=== PATIENT | male | born 1980 | race Two or more races ===

== ENCOUNTER → 2020-06-19 08:39 | Outpatient (BNVA) | payer BC, SELFPAY | PROVIDERS: PCP Internal Medicine; Referring Provider Internal Medicine; Visit Provider Internal Medicine Endocrinology, Diabetes & Metabolism | DX: Z76.89 Persons encountering health services in other specified circumstances (principal) ==

== ENCOUNTER → 2020-08-14 08:54 | Outpatient (BNVA) | payer BC, SELFPAY | PROVIDERS: PCP Internal Medicine; Visit Provider Urology | DX: Z76.89 Persons encountering health services in other specified circumstances (principal) ==

== ENCOUNTER → 2020-09-14 08:35 | Outpatient (BNVA) | payer BC, SELFPAY | PROVIDERS: PCP Internal Medicine; Visit Provider Internal Medicine Endocrinology, Diabetes & Metabolism | DX: E10.9 Type 1 diabetes mellitus without complications (principal); E10.42 Type 1 diabetes mellitus with diabetic polyneuropathy; E10.319 Type 1 diabetes mellitus with unspecified diabetic retinopathy without macular edema; E04.2 Nontoxic multinodular goiter; E78.5 Hyperlipidemia, unspecified; E66.9 Obesity, unspecified; E55.9 Vitamin D deficiency, unspecified | CPT/HCPCS: 82947 ==

== ENCOUNTER 2020-09-14 09:27 | Outpatient (REF) | payer BC, SELFPAY ==
[2020-09-14 11:03] LABS: Estimated Average Glucose 160 mg/dL; Hemoglobin A1c % 7.2 %
[2020-09-14 11:08] LABS: Creatinine Urine 141.83 mg/dL; Microalbum/Creatinine Ratio Ur 9.8 ug/mg cr
[2020-09-14 11:09] LABS: Vitamin B12 387 pg/mL (200-900)
[2020-09-14 11:19] LABS: Alanine Aminotransferase 18 U/L (0-40); Albumin Level 4.4 g/dL (3.5-5.0); Alkaline Phosphatase 71 U/L (39-117); Anion Gap 11 (12-20); Aspartate Amino Transferase 16 U/L (5-37); Bilirubin Total 0.3 mg/dL (0.0-1.0); Blood Urea Nitrogen 9 mg/dL (9-16); Calcium 8.9 mg/dL (8.4-10.2); Carbon Dioxide 28 mmol/L (22-29); Chloride 107 mmol/L (96-108); Cholesterol 177 mg/dL; Estimated Glomerular Filt Rate > 60; Glucose Fasting 125 mg/dL (60-99); HDL Cholesterol 48 mg/dL; LDL Cholesterol Calculated 118 mg/dl; Potassium 4.3 mmol/L (3.3-5.1); Sodium 142 mmol/L (135-145); Total Protein 6.9 g/dL (6.5-8.0); Triglycerides 55 mg/dL
[2020-09-14 11:29] LABS: Free T4 (Free Thyroxine) 0.89 ng/dL (0.71-1.85); Thyroid Stimulating Hormone 1.29 uIU/mL (0.32-4.0); Vitamin D 25-OH Total 27.7 ng/mL (>30)
[2020-09-15 14:17] LABS: LDL Cholesterol Direct 122 mg/dL (<100)
== END 2020-09-14 09:28 | disposition home or self-care (01) ==
LOC: HO.10HDL 09:27
PROVIDERS: Visit Provider Internal Medicine Endocrinology, Diabetes & Metabolism
DX: E04.2 Nontoxic multinodular goiter (principal); E10.9 Type 1 diabetes mellitus without complications
CPT/HCPCS: 36415; 80053; 80061; 82043; 82306; 82607; 83036; 83721; 84439; 84443

== ENCOUNTER → 2020-12-14 07:12 | Outpatient (BNVA) | payer BC, SELFPAY | PROVIDERS: PCP Internal Medicine; Visit Provider Internal Medicine Endocrinology, Diabetes & Metabolism | DX: E10.9 Type 1 diabetes mellitus without complications (principal); E10.42 Type 1 diabetes mellitus with diabetic polyneuropathy; E10.319 Type 1 diabetes mellitus with unspecified diabetic retinopathy without macular edema; E04.2 Nontoxic multinodular goiter; E78.5 Hyperlipidemia, unspecified; E66.9 Obesity, unspecified; E55.9 Vitamin D deficiency, unspecified | CPT/HCPCS: 82947 ==

== ENCOUNTER 2020-12-14 08:02 | Outpatient (REF) | payer BC, SELFPAY ==
[2020-12-14 10:36] LABS: Cholesterol 114 mg/dL; HDL Cholesterol 39 mg/dL; LDL Cholesterol Calculated 65 mg/dl; Triglycerides 51 mg/dL
[2020-12-15 08:07] LABS: LDL Cholesterol Direct 61 mg/dL (<100)
== END 2020-12-14 08:03 | disposition home or self-care (01) ==
LOC: HO.10HDL 08:02
PROVIDERS: Visit Provider Internal Medicine Endocrinology, Diabetes & Metabolism
DX: E78.5 Hyperlipidemia, unspecified (principal)
CPT/HCPCS: 36415; 80061; 83721

== ENCOUNTER 2021-05-12 09:22 | Outpatient (REF) | payer BC, SELFPAY ==
--- NOTE | 2021-05-12 09:26 | EMG_ITS ---
This is a 41-year-old man with a 20-year history of insulin-dependent diabetes with insulin pump, comes in with right hand numbness, tingling and pain. PHYSICAL EXAMINATION: On examination, he is alert and oriented with normal intellectual functions. Cranial nerves II through XII are normal. Muscle tone and strength are normal in all 4 extremities. No Tinel or Phalen sign. IMPRESSION: Carpal tunnel syndrome. Rule out neuropathy. Nerve conduction EMG study: Mild to moderate carpal tunnel syndrome on the right. Mild sensory motor peripheral neuropathy. Normal EMG of the right C5-T1 innervated muscles. MD SU Carmen/YANIV / [phone]
== END 2021-05-12 09:23 | disposition home or self-care (01) ==
LOC: HO.NEURO 09:22
PROVIDERS: Visit Provider Internal Medicine
DX: R20.0 Anesthesia of skin (principal)
CPT/HCPCS: 95885; 95910

== ENCOUNTER 2021-08-19 09:28 | Outpatient (REF) | payer BC, SELFPAY | END 2021-08-19 09:29 | disposition home or self-care (01) | LOC: HO.LAB 09:28 | PROVIDERS: Visit Provider Internal Medicine | DX: Z20.822 Contact with and (suspected) exposure to COVID-19 (principal) | CPT/HCPCS: U0003; U0005 ==

== ENCOUNTER 2022-02-14 07:54 | Outpatient (REF) | payer BC, SELFPAY ==
[2022-02-14 11:00] LABS: Anion Gap 11 (12-20); Blood Urea Nitrogen 12 mg/dL (9-16); Calcium 9.2 mg/dL (8.4-10.2); Carbon Dioxide 25 mmol/L (22-29); Chloride 108 mmol/L (96-108); Cholesterol 201 mg/dL; Estimated Glomerular Filt Rate > 60; Glucose Random 151 mg/dL (60-115); HDL Cholesterol 45 mg/dL; LDL Cholesterol Calculated 140 mg/dl; Potassium 4.3 mmol/L (3.3-5.1); Sodium 140 mmol/L (135-145); Triglycerides 81 mg/dL
[2022-02-14 11:09] LABS: Free T4 (Free Thyroxine) 0.92 ng/dL (0.71-1.85)
[2022-02-14 13:07] LABS: Creatinine Urine 127.88 mg/dL; Microalbum/Creatinine Ratio Ur 19.5 ug/mg cr
== END 2022-02-14 07:55 | disposition home or self-care (01) ==
LOC: HO.10HDL 07:54
PROVIDERS: Visit Provider Internal Medicine Endocrinology, Diabetes & Metabolism
DX: E04.2 Nontoxic multinodular goiter (principal); E10.42 Type 1 diabetes mellitus with diabetic polyneuropathy
CPT/HCPCS: 36415; 80048; 80061; 82043; 84439; 84443

== ENCOUNTER → 2022-04-28 15:00 | Outpatient (BNVA) | payer BC, SELFPAY | PROVIDERS: PCP Internal Medicine; Visit Provider Internal Medicine Endocrinology, Diabetes & Metabolism | DX: E10.42 Type 1 diabetes mellitus with diabetic polyneuropathy (principal); E78.5 Hyperlipidemia, unspecified | CPT/HCPCS: 82947 ==

== ENCOUNTER 2022-07-21 07:42 | Outpatient (REF) | payer BC, SELFPAY ==
[2022-07-21 12:45] LABS: Creatinine Urine 104.94 mg/dL; Microalbum/Creatinine Ratio Ur 29.5 ug/mg cr
[2022-07-21 13:05] LABS: Alanine Aminotransferase 18 U/L (0-40); Albumin Level 4.2 g/dL (3.5-5.0); Alkaline Phosphatase 65 U/L (39-117); Anion Gap 11 (12-20); Aspartate Amino Transferase 22 U/L (5-37); Bilirubin Total 0.3 mg/dL (0.0-1.0); Blood Urea Nitrogen 17 mg/dL (9-16); Calcium 9.1 mg/dL (8.4-10.2); Carbon Dioxide 24 mmol/L (22-29); Chloride 110 mmol/L (96-108); Cholesterol 176 mg/dL; Estimated Glomerular Filt Rate > 60; Glucose Fasting 150 mg/dL (60-99); HDL Cholesterol 42 mg/dL; LDL Cholesterol Calculated 121 mg/dl; Potassium 4.4 mmol/L (3.3-5.1); Sodium 141 mmol/L (135-145); Thyroid Stimulating Hormone 1.07 uIU/mL (0.32-4.0); Total Protein 6.5 g/dL (6.5-8.0); Triglycerides 68 mg/dL; Vitamin D 25-OH Total 19.7 ng/mL (>30)
== END 2022-07-21 07:43 | disposition home or self-care (01) ==
LOC: HO.10HDL 07:42
PROVIDERS: Visit Provider Internal Medicine
DX: E78.5 Hyperlipidemia, unspecified (principal); E10.319 Type 1 diabetes mellitus with unspecified diabetic retinopathy without macular edema; E11.9 Type 2 diabetes mellitus without complications; E55.9 Vitamin D deficiency, unspecified; E04.2 Nontoxic multinodular goiter
CPT/HCPCS: 36415; 80053; 80061; 82043; 82306; 84443

== ENCOUNTER 2022-08-15 07:38 | Outpatient (REF) | payer BC, SELFPAY ==
[2022-08-15 11:07] LABS: Cholesterol 194 mg/dL; HDL Cholesterol 48 mg/dL; LDL Cholesterol Calculated 135 mg/dl; Triglycerides 55 mg/dL
== END 2022-08-15 07:39 | disposition home or self-care (01) ==
LOC: HO.10HDL 07:38
PROVIDERS: Visit Provider Internal Medicine Endocrinology, Diabetes & Metabolism
DX: E78.5 Hyperlipidemia, unspecified (principal)
CPT/HCPCS: 36415; 80061

== ENCOUNTER → 2022-08-18 14:47 | Outpatient (BNVA) | payer BC, SELFPAY | PROVIDERS: PCP Internal Medicine; Visit Provider Internal Medicine Endocrinology, Diabetes & Metabolism | DX: E10.42 Type 1 diabetes mellitus with diabetic polyneuropathy (principal); E78.5 Hyperlipidemia, unspecified | CPT/HCPCS: 82947 ==

== ENCOUNTER 2022-11-18 08:07 | Outpatient (REF) | payer BC, SELFPAY ==
[2022-11-18 11:51] LABS: Alanine Aminotransferase 21 U/L (0-40); Alkaline Phosphatase 67 U/L (39-117); Anion Gap 11 (12-20); Aspartate Amino Transferase 24 U/L (5-37); Bilirubin Total 0.4 mg/dL (0.0-1.0); Blood Urea Nitrogen 18 mg/dL (9-16); Calcium 8.8 mg/dL (8.4-10.2); Carbon Dioxide 25 mmol/L (22-29); Chloride 112 mmol/L (96-108); Cholesterol 178 mg/dL; Estimated Glomerular Filt Rate > 60; Glucose Fasting 112 mg/dL (60-99); HDL Cholesterol 39 mg/dL; LDL Cholesterol Calculated 128 mg/dl; Potassium 4.2 mmol/L (3.3-5.1); Sodium 144 mmol/L (135-145); Total Protein 6.1 g/dL (6.5-8.0); Triglycerides 58 mg/dL
[2022-11-18 11:54] LABS: Creatinine Urine 182.06 mg/dL; Microalbum/Creatinine Ratio Ur 14.2 ug/mg cr
== END 2022-11-18 08:08 | disposition home or self-care (01) ==
LOC: HO.10HDL 08:07
PROVIDERS: Visit Provider Internal Medicine
DX: E10.42 Type 1 diabetes mellitus with diabetic polyneuropathy (principal); E78.5 Hyperlipidemia, unspecified; E55.9 Vitamin D deficiency, unspecified
CPT/HCPCS: 36415; 80053; 80061; 82043; 82306

== ENCOUNTER 2023-08-24 07:55 | Outpatient (REF) | payer BC, SELFPAY ==
[2023-08-24 11:08] LABS: Alanine Aminotransferase 25 U/L (0-40); Albumin Level 4.1 g/dL (3.5-5.0); Alkaline Phosphatase 69 U/L (39-117); Anion Gap 11 (12-20); Aspartate Amino Transferase 23 U/L (5-37); Bilirubin Total 0.4 mg/dL (0.0-1.0); Blood Urea Nitrogen 21 mg/dL (9-16); Calcium 9.3 mg/dL (8.4-10.2); Carbon Dioxide 23 mmol/L (22-29); Chloride 112 mmol/L (96-108); Cholesterol 188 mg/dL (<200); Estimated Glomerular Filt Rate > 60; Glucose Fasting 79 mg/dL (60-99); HDL Cholesterol 53 mg/dL (>40); LDL Cholesterol Calculated 127 mg/dL (<100); Sodium 142 mmol/L (135-145); Total Protein 6.7 g/dL (6.5-8.0); Triglycerides 43 mg/dL (<150)
[2023-08-24 11:23] LABS: Vitamin D 25-OH Total 17.5 ng/mL (>30)
[2023-08-24 11:24] LABS: Microalbum/Creatinine Ratio Ur 10.7 ug/mg cr (<30)
== END 2023-08-24 07:56 | disposition home or self-care (01) ==
LOC: HO.10HDL 07:55
PROVIDERS: Visit Provider Internal Medicine
DX: E10.319 Type 1 diabetes mellitus with unspecified diabetic retinopathy without macular edema (principal); E55.9 Vitamin D deficiency, unspecified; E78.5 Hyperlipidemia, unspecified
CPT/HCPCS: 36415; 80053; 80061; 82043; 82306; 82570

== ENCOUNTER 2023-08-28 14:46 | Outpatient (AMB) | payer BC, SELFPAY ==
[2023-08-28 15:01] VITALS: BP 130/70; BMI 37.4
--- NOTE | 2023-08-28 15:01 | A.OFFPC_ITS ---
Vital Signs 08/28/23 15:01 Height 5 ft 9 in Weight 253 lb BMI 37.4 BP 130/70 Blood Pressure Location Lt brachial Position Sitting Intake Visit Reasons: dm Intake Note: Patient here for a follow up DM Tax Lawyer Required: No Accompanied by: Self / Same As Patient Allergies No Known Allergies [No Known Allergies*] Allergy (Verified 08/28/23 15:23) Medication List - Last Reconciled 08/28/23 by Elly Anne MD atorvastatin 80 mg PO BEDTIME 90 days blood-glucose sensor (Dexcom G6 Sensor device) As directed gabapentin Tablet in the morning, 1 tablet in the afternoon and 2 tablets at bedtime. PO .3 times a day; 30 days insulin lispro Up to 80 units via insulin pump subcut daily; 90 days Tobacco use date assessed: 08/28/23 Dental Screening Dental Screen Date: 08/28/23 Did you have a dental visit in the last 12 months?: No Did you have a dental problem in the last 6 months where you did not have access to dental care?: No Was dental information given to patient?: Patient has dentist HPI HPI Comments History of Present Illness Details This is a 43-year-old male with diabetes mellitus type while long-term current use of insulin complicated by polyneuropathy, severe major depression without psychotic features, dyslipidemia and vitamin-D deficiency that comes today for follow-up on his conditions. A1c within goal. Polyneuropathy has not significantly changed and he is on gabapentin for this matter. He declines any counseling or medication for his severe major depression and denies any suicidal thoughts. LDL not on goal but does not want me to add any medication. Vitamin- D supplements will be started. No chest pain or shortness of breath. 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 Mother No problems noted. Paternal Grandmother Diabetes Paternal Uncle Diabetes Family/Other Mental health disorder Social History Housing: House Alcohol intake: current Alcohol intake frequency: holidays/special occasions only Alcohol type: beer Patient Tobacco Use Status: Current everyday Tobacco user Tobacco use type: Cigarette Cigarettes Per Day: 6 e-Cigarette/Vaping Use: Never Used Second Hand Smoke Exposure: No service: No Current occupational status: employed Current occupational exposures/hazards: No Cognitive needs: No Hearing needs: No Vision needs: No Questionnaire PHQ-9 Over the last 2 weeks, how often have you been bothered by any of the following problems? 1. Little interest or pleasure in doing things: not at all 2. Feeling down, depressed, or hopeless: not at all 3. Trouble falling or staying asleep, or sleeping too much: more than half the days 4. Feeling tired or having little energy: several days 5. Poor appetite or overeating: not at all 6. Feeling bad about yourself - or that you are a failure or have let yourself or your family down: several days 7. Trouble concentrating on things, such as reading the newspaper or watching television: not at all 8. Moving or speaking so slowly that other people could have noticed. Or the opposite - being so fidgety or restless that you have been moving around a lot more than usual: not at all 9. Thoughts that you would be better off or of hurting yourself in some way: not at all Total score: 4 Depression Screening Interpretation: Positive Depression Screening Follow-up: Declines treatment Depression Screening Done: Yes 21120 - PHQ-9 Billing: Yes Source: Developed by Drs. Jace Padilla, Earlene Perez, Bogdan Luong and colleagues, with an educational lydia from [employer]. Thrive Questionnaire Date Thrive assessed: 08/28/23 I am a: Patient What is your living situation today?: I have a steady place to live Within the past 12 months, did the food you bought not last and you didn't have the money to get more?: Never true Within the past 12 months, did you worry whether your food would run out before you got money to buy more?: Never true Do you have trouble paying for medicines?: No Do you have trouble getting transportation to medical appointments?: No Do you have trouble paying your heating and electricity bill?: No Do you have trouble taking care of your child, family member or friend?: No Do you have trouble with day-to-day activities such as bathing, preparing meals, shopping, managing finances, etc.?: No Are you currently unemployed and looking for a job?: No Are you interested in more education?: No Please select the resources that you would like help with: None Currently or been in a relationship where the following occur: no concerns reported THRIVE Score: 0 AUDIT C Alcohol Use Questionnaire (AUDIT-C) 1. How often do you have a drink containing alcohol?: Monthly or less 2. How many drinks containing alcohol do you have on a typical day when you are drinking?: 1 or 2 3. How often do you have six or more drinks on one occasion?: Never Total Score: 1 Score Reviewed/Action Taken: No TEODORO-7 AMB Questionnaire TEODORO-7 Date TEODORO - 7 assessed: 11/23/22 Feeling nervous, anxious, or on edge: 1 = Several days Not being able to stop or control worryin = Not at all Worrying too much about different things: 1 = Several days Trouble relaxin = Not at all Being so restless that it is hard to sit still: 0 = Not at all Becoming easily annoyed or irritable: 1 = Several days Feeling afraid as if something awful might happen: 0 = Not at all Total TEODORO-7 score (0-4 normal; 5-9 mild; 10-14 moderate; 15-21 severe): 3 Source: Developed by Drs. Jace Padilla, Earlene Perez, Bogdan Luong and colleagues, with an educational lydia from [employer]. TEODORO-7 Assessment Billing TEODORO-7 Assessment Tool: TEODORO-7 Assessment 49849 Review of Systems Const All systems reviewed & are unremarkable except as noted in HPI and below Eyes Reports no additional complaints, Denies change in vision and Denies other visual disturbances Card Denies chest pain at rest, Denies chest pain with activity, Denies edema, Denies irregular heart rhythm, Denies claudication, Denies dyspnea, Denies dyspnea on exertion, Denies orthopnea, Denies paroxysmal nocturnal dyspnea and Denies slow heart rate Resp Denies cough, Denies dyspnea and Denies dyspnea on exertion GI Denies abdominal pain, Denies change in bowel habits, Denies excessive flatus, Denies nausea and Denies vomiting Denies urinary hesitancy, Denies urinary incontinence and Denies urinary urgency Musc Denies abnormal gait, Denies atrophy, Denies deformity and Denies limited range of motion Skin/Breast Denies bleeding lesions, Denies changing lesions and Denies rash Neuro Denies abnormal gait and Denies lack of coordination Physical exam (Primary Care) Vital Signs: Last Vital Signs BP 130/70 08/28/23 15:01 BMI result Body Mass Index 37.4 Tobacco/Smoking Status: Tobacco use Status Tobacco use date assessed 08/28/23 08/28/23 15:09 Patient Tobacco Use Status Current everyday Tobacco 08/28/23 15:03 Tobacco use type Cigarette 08/28/23 15:03 e-Cigarette/Vaping Use Never Used 08/28/23 15:03 PHQ-9: PHQ-9 Score PHQ-9: Total score 4 08/28/23 15:36 Depression Screening Interpretation: Positive Depression Screening Follow-up: Declines treatment Thrive Assessment: Date of Thrive Assessment Date Thrive assessed 08/28/23 08/28/23 15:03 Currently or been in a relationship where the following occur: no concerns reported Neck Neck: Yes normal visual inspection and Yes supple Resp Effort & Inspection: normal respiratory effort Auscultation: clear to auscultation bilaterally Cardio Jugular venous distension: no JVD Rate: regular rate Rhythm: regular rhythm Heart sounds: S1 normal heart sound present and S2 normal heart sound present Extrem General: Yes full ROM Office Procedures Flu Questionnaire Does the patient have a severe egg allergy?: No Results AMB Hemoglobin A1c AMB Hemoglobin A1c 6.6 % Last Edit by MARIA ALEJANDRA Gil on 08/28/23 15:0 9 Immunizations flu vacc [id number] 6mos up(PF) 60 mcg(15 mcgx4)/0.5 mL IM syringe Performing Provider: Elly Anne MD [facility] Documented (not given) by: MARIA ALEJANDRA Gil on 08/28/23 15:03 Reason Not Given: Patient Refused Results Reviewed Results Reviewed: Laboratory Last Values Hgb A1c (Clinic) 6.6 % (4.0-6.0) H 08/28/23 14:56 Assessment and Plan Assessment & Plan (1) Severe major depression without psychotic features: Code(s): F32.2 - Major depressive disorder, single episode, severe without psychotic features Plan: Declines treatment. In remission currently. (2) Diabetic polyneuropathy associated with type 1 diabetes mellitus: Code(s): E10.42 - Type 1 diabetes mellitus with diabetic polyneuropathy Plan: Continue insulin. Continue gabapentin. A1c goal is equal or less than 7%. (3) Dyslipidemia: Comment: Code(s): E78.5 - Hyperlipidemia, unspecified Plan: Continue statins. Advised low-cholesterol diet. LDL goal is less than 70. (4) Vitamin D deficiency: Code(s): E55.9 - Vitamin D deficiency, unspecified Plan: Continue vitamin-D supplements. Orders: Orders Influenza [id number] Immunization Today Z23 - Encounter for immunization Lipid Panel 6 Months E78.5 - Hyperlipidemia, unspecified Vitamin D 25-OH Total 6 Months E55.9 - Vitamin D deficiency, unspecified Comprehensive Lotus. Panel Fast 6 Months E10.9 - Type 1 diabetes mellitus without complications AMB Hemoglobin A1c Today E10.9 - Type 1 diabetes mellitus without complications Microalbumin, Random (w Creat) 6 Months E11.9 - Type 2 diabetes mellitus without complications Referrals Endocrinology Referral E10.9 - Type 1 diabetes mellitus without complications Medications: New cholecalciferol (vitamin D3) 50 mcg PO DAILY 90 caps 1RF 90 days Changed From blood-glucose sensor (Dexcom G6 Sensor device) As directed 3 ea 0RF E10.9 - Type 1 diabetes mellitus without complications To blood-glucose sensor (Dexcom G6 Sensor device) slim cartridge, infusion set, transmitter kit 3 ea 0RF E10.9 - Type 1 diabetes mellitus without complications Refilled gabapentin Tablet in the morning, 1 tablet in the afternoon and 2 tablets at bedtime. PO .3 times a day; 360 caps 6RF 30 days E10.42 - Type 1 diabetes mellitus with diabetic polyneuropathy Coding Level of Care Code Est Pt Level 4 (52436) Diagnoses Severe major depression without psychotic features F32.2 Diabetic polyneuropathy associated with type 1 diabetes mellitus E10.42 Dyslipidemia E78.5 Vitamin D deficiency E55.9 Additional Codes TEODORO-7 Assessment Billing - TEODORO-7 Assessment Tool: TEODORO-7 Assessment 89990 ([id number]) Time Spent (min) 24
== END 2023-08-28 15:34 | disposition home or self-care (01) ==
PROVIDERS: Visit Provider Internal Medicine
DX: E10.42 Type 1 diabetes mellitus with diabetic polyneuropathy (principal); E78.5 Hyperlipidemia, unspecified; E55.9 Vitamin D deficiency, unspecified; F32.2 Major depressive disorder, single episode, severe without psychotic features
CPT/HCPCS: 83036; 99214

== ENCOUNTER 2023-12-21 09:20 | Outpatient (AMB) | payer BC, SELFPAY ==
--- NOTE | 2023-12-21 09:22 | MHC.OFFVIS ---
Vital Signs 12/21/23 09:25 Height 5 ft 9 in Weight 258 lb 9.636 oz BMI 38.2 BP 138/78 Blood Pressure Location Lt brachial Position Sitting Pulse 58 Pulse Source Pulse Oximeter Intake Visit Reasons: DM1-confirmed Intake Note: Patient presents today to follow up on D1MT. Last Diabetic Eye exam: 08/2023 Last Podiatry Visit: 10/2023 Random Glucose: 161 mg/dl HgA1c: 7.0% Manager Labor Relations Required: No Accompanied by: Self / Same As Patient Allergies No Known Allergies [No Known Allergies*] Allergy (Verified 12/21/23 09:27) Medication List - Last Reconciled 12/21/23 by Jace Jc MD atorvastatin 80 mg PO BEDTIME 90 days blood-glucose sensor (Dexcom G6 Sensor device) slim cartridge, infusion set, transmitter kit cholecalciferol (vitamin D3) 50 mcg PO DAILY 90 days gabapentin Tablet in the morning, 1 tablet in the afternoon and 2 tablets at bedtime. PO .3 times a day; 30 days insulin lispro Up to 80 units via insulin pump subcut daily; 90 days HPI Comments Details: 42 yo male today for fup visit, for DM 1 He is feeling well. Patient is on basal IQ tandem with the dexcom G6. Pump and sensor download from 08/04/22-08/17/22 showed an average blood sugar of 144 mg/dL. The range is 40 to 280 mg per dL. He is 82 % in target range, 1% below target and only 17% above target. He was on basal IQ technology. He has % suspension is at nighttime. Average this patient 6 times per day. Average duration 12 minutes. Unfortunately, he has not using his pump at present time except to give him some bolus insulin. No experiencing any hypoglycemia He has DM type 1 diagnosed at age 23. He has Other PMH of hyperlipidemia, hypertension. 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 He has neuropathy , retinopathy. but no known nephropathy or macrovascular disease. Rare hypoglycemia Last ophthalmology evaluation l2-3 mos a go : he states he has stable retinopathy.Needs to see optho He has occasional nocturia, he denies polyuria, polydipsia, he has positive burning sensation and pain in his feet all the time, positive numbness and tingling, denies blurred vision. 05/15/19 Right Thyroid Lobe: 5.9 x 3.0 x 2.5 cm, volume 23.1 mL. Parenchyma: The gland echotexture is homogeneous. Thyroid vascularity is normal. Left Thyroid Lobe: 4.7 x 2.3 x 2.3 cm, volume 13.0 mL. Parenchyma: The gland echotexture is homogeneous. Thyroid vascularity is normal. Isthmus: 1.2 cm in maximum AP dimension. RIGHT THYROID LOBE: There is 1 nodule seen. 1. Location: Low/lateral. Size: 0.4 x 0.2 x 0.3 cm. Nodule characteristics: Hypoechoic and complex cystic, smooth margins, small calcification and no intranodular flow. Ultrasound appearance is suggestive of a colloid cyst. ISTHMUS: There is 1 nodule seen. 1. Location: Isthmus. Size: 0.6 x 0.3 x 0.6 cm. Nodule characteristics: Heterogeneous, smooth margins, no calcification and minimal peripheral flow. Question lobulated contour of the isthmus versus isoechoic nodule. This measures 1.1 x 1.4 cm in AP and transverse dimension. This is isoechoic, no calcification and demonstrates minimal flow. This is not well visualized sagittally for measurement. LEFT THYROID LOBE: There is 1 nodule seen. 1. Location: Mid. Size: 0.4 x 0.3 x 0.4 cm. Nodule characteristics: Hypoechoic and cystic, smooth margins, no calcification and no intranodular flow. NODES: No lymphadenopathy is seen in the tissue surrounding the thyroid gland. 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 Mother No problems noted. Paternal Grandmother Diabetes Paternal Uncle Diabetes Family/Other Mental health disorder Social History Housing: House Alcohol intake: current Alcohol intake frequency: holidays/special occasions only Alcohol type: beer Patient Tobacco Use Status: Current everyday Tobacco user Tobacco use type: Cigarette Cigarettes Per Day: 6 e-Cigarette/Vaping Use: Never Used Second Hand Smoke Exposure: No service: No Current occupational status: employed Current occupational exposures/hazards: No Cognitive needs: No Hearing needs: No Vision needs: No Physical Exam Vital Signs: Last Vital Signs Pulse 58 12/21/23 09:25 BP 138/78 12/21/23 09:25 BMI result Body Mass Index 38.2 Absence of Cushingoid features. Absence of acromegalic features. Neck exam reveals nl size thyroid about 15 gms. No thyroid nodules palpable. No carotid bruits present. Lungs CTA. Heart S1 S2, Reg R/R. No M/R/ G. Skin exam reveals absence of vitiligo or acanthosis nigricans. Abdominal exam reveals Soft NT/ND with NA BS. No organomegaly present. Extrem Other: Visual exam of foot performed. There is a 2nd and 5th digit amputation on the right foot and a 2nd digit amputation on the left. shallow ulcer on 2nd L toe or open lesions. No onchomycosis, no callouses.Pulses 2 + distally. Sensation intact to monofilament exam. Vibratory sensation sensed is decreased , with 128 Hz tuning fork Results AMB Hemoglobin A1c AMB Hemoglobin A1c 7.0 % Last Edit by MARIA ALEJANDRA Martin on 12/21/23 09:46 Assessment & Plan Assessment & Plan (1) Diabetes type 1, controlled: Code(s): E10.9 - Type 1 diabetes mellitus without complications Category: Medical Qualifiers: Diabetes mellitus complication status: with neurologic complications Diabetes mellitus complication detail: with polyneuropathy Qualified Code(s): E10.42 - Type 1 diabetes mellitus with diabetic polyneuropathy Plan: This is a 42-year-old male with a history of type 1 diabetes being treated with a tandem T-slim pump with Dexcom with excellent glycemic control and known microvascular complications namely neuropathy and retinopathy. Plan is to continue the current management. He was told to follow up with Podiatry regarding his left 2nd toe (2) Dyslipidemia: Comment: Code(s): E78.5 - Hyperlipidemia, unspecified Category: Medical Plan: Patient's is to start ezetimibe 10 mg along with atorvastatin and recheck lipid profile in 2 months Orders: Orders AMB Hemoglobin A1c Today E10.42 - Type 1 diabetes mellitus with diabetic polyneuropathy, Z13.9 - Encounter for screening, unspecified Referrals Diabetes Education Referral E10.42 - Type 1 diabetes mellitus with diabetic polyneuropathy Nutrition/Dietitian Referral E10.42 - Type 1 diabetes mellitus with diabetic polyneuropathy Medications: Refilled insulin lispro Up to 80 units via insulin pump subcut daily; 90 days 90 mL 3RF E10.9 - Type 1 diabetes mellitus without complications Coding Level of Care Code Est Pt Level 4 (56975) Diagnoses Controlled type 1 diabetes mellitus with diabetic polyneuropathy E10.42 Diabetes mellitus complication status: with neurologic complications Diabetes mellitus complication detail: with polyneuropathy Dyslipidemia E78.5
[2023-12-21 09:25] VITALS: BP 138/78; PULSE 58; BMI 38.2
[2023-12-21 10:00] LABS: Glucose, Whole Blood 161 mg/dL (60-115)
== END 2023-12-21 10:13 | disposition home or self-care (01) ==
PROVIDERS: PCP Internal Medicine; Visit Provider Internal Medicine Endocrinology, Diabetes & Metabolism
DX: Z13.9 Encounter for screening, unspecified (principal); E10.42 Type 1 diabetes mellitus with diabetic polyneuropathy; E78.5 Hyperlipidemia, unspecified
CPT/HCPCS: 99214

== ENCOUNTER → 2023-12-21 09:20 | Outpatient (BNVA) | payer BC, SELFPAY | PROVIDERS: PCP Internal Medicine; Visit Provider Internal Medicine Endocrinology, Diabetes & Metabolism | DX: E10.42 Type 1 diabetes mellitus with diabetic polyneuropathy (principal); E78.5 Hyperlipidemia, unspecified | CPT/HCPCS: 82947; 83036 ==

== ENCOUNTER 2024-01-04 08:47 | Outpatient (AMB) | payer BC, SELFPAY ==
--- NOTE | 2024-01-04 09:27 | MHC.AMDMED ---
Intake Intake Visit Reasons: DM1/CONFIRMED Assembler Tester Required: No Accompanied by: Self / Same As Patient Allergies No Known Allergies [No Known Allergies*] Allergy (Verified 12/21/23 09:27) HPI Comprehensive Diabetes Asmnt Most Recent Diabetes Results: Microalb/Creat Ratio 10.7 ug/mg cr (<30) 08/24/23 Cholesterol 188 mg/dL (<200) 08/24/23 HDL Cholesterol 53 mg/dL (>40) 08/24/23 Triglycerides 43 mg/dL (<150) 08/24/23 Creatinine 0.83 mg/dL (0.5-1.4) 08/24/23 Blood Urea Nitrogen 21 mg/dL (9-16) H 08/24/23 Sodium 142 mmol/L (135-145) 08/24/23 Potassium 4.0 mmol/L (3.3-5.1) 08/24/23 Chloride 112 mmol/L (96-108) H 08/24/23 Carbon Dioxide 23 mmol/L (22-29) 08/24/23 Calcium 9.3 mg/dL (8.4-10.2) 08/24/23 AST 23 U/L (5-37) 08/24/23 ALT 25 U/L (0-40) 08/24/23 Total Protein 6.7 g/dL (6.5-8.0) 08/24/23 Albumin 4.1 g/dL (3.5-5.0) 08/24/23 [facility] Medical History Severe major depression without psychotic features Hand numbness Vitamin D deficiency Obesity (BMI 30-39.9) Dyslipidemia Non-toxic multinodular goiter Diabetic retinopathy associated with type 1 diabetes mellitus Diabetic polyneuropathy associated with type 1 diabetes mellitus Diabetes type 1, controlled Surgical History S/P foot surgery, right 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 Mother No problems noted. Paternal Grandmother Diabetes Paternal Uncle Diabetes Family/Other Mental health disorder Social History (Reviewed 12/21/23 @ 09:34 by ANNA Martin Housing: House Alcohol intake: current Alcohol intake frequency: holidays/special occasions only Alcohol type: beer Patient Tobacco Use Status: Current everyday Tobacco user Tobacco use type: Cigarette Cigarettes Per Day: 6 e-Cigarette/Vaping Use: Never Used Second Hand Smoke Exposure: No service: No Current occupational status: employed Current occupational exposures/hazards: No Cognitive needs: No Hearing needs: No Vision needs: No Assessment & Plan Assessment & Plan (1) Diabetes type 1, controlled: Code(s): E10.9 - Type 1 diabetes mellitus without complications Qualifiers: Diabetes mellitus complication status: with neurologic complications Diabetes mellitus complication detail: with polyneuropathy Qualified Code(s): E10.42 - Type 1 diabetes mellitus with diabetic polyneuropathy Plan: Patient presents for pump training for T-Slim pump with Basal IQ and CGM training today. The following topics were reviewed today: Patient is currently off pump due to not being able to receive insulin pump supplies, or sensors Patient reports he is testing blood sugar with glucose meter but did not bring to today's visit Reports he has been using Humalog before meals with syringe and vial, patient does not have active prescription for basal insulin. Message sent to Dr. Jc to send prescription for Lantus 30 units daily, until patient can resume insulin pump therapy. Explained to patient with type 1 diabetes important to have both mealtime insulin and long-acting insulin in order to have 24 hour insulin coverage. Patient stated he understands and will start Lantus 30 units Sent message to [facility] to find out if patient is eligible for new T slim with control IQ, or if we need to update through the computer. Also instructed patient to call [facility] to make sure they are sending him his insulin pump supplies Troubleshooting after starting new pod or inserting new insulin set: Occlusion, adhesive tape sensitivity, redness Check BG 2 hours after site change Safety information: Importance of a backup plan, for manual injections, proper prescriptions and emergency supplies ketone strips, and rules for testing for ketones Patient understands the basic concepts of pump therapy, how to give insulin for meals and snacks, how to troubleshoot for hyper and hypoglycemia. Patient will follow-up with hematology nurse educator in 6 weeks Portions of this note were created using voice recognition software, please excuse any words or phrases that may have been misinterpreted. Coding Level of Care Code Est Pt Level 1 (61018) Diagnoses Controlled type 1 diabetes mellitus with diabetic polyneuropathy E10.42 Diabetes mellitus complication status: with neurologic complications Diabetes mellitus complication detail: with polyneuropathy
== END 2024-01-04 09:29 | disposition home or self-care (01) ==
PROVIDERS: PCP Internal Medicine; Visit Provider Registered Nurse Diabetes Educator
DX: E10.42 Type 1 diabetes mellitus with diabetic polyneuropathy (principal)

== ENCOUNTER → 2024-01-04 08:47 | Outpatient (BNVA) | payer BC, SELFPAY | PROVIDERS: PCP Internal Medicine; Visit Provider Registered Nurse Diabetes Educator | DX: Z46.81 Encounter for fitting and adjustment of insulin pump (principal); E10.42 Type 1 diabetes mellitus with diabetic polyneuropathy | CPT/HCPCS: 99211 ==

== ENCOUNTER 2024-01-16 15:29 | Emergency (ER) | payer BC, SELFPAY ==
--- NOTE | ~2024-01-16 | XR_ITS ---
EXAMINATION: XR FINGER, LEFT CLINICAL INFORMATION: Pain. Question of osteomyelitis COMPARISON: None available. TECHNIQUE: 3 views of the left first digit. FINDINGS: No radiopaque foreign body, fracture, dislocation, or destructive process. XR/XR finger LT min 2V IMPRESSION: Negative study.
--- NOTE | 2024-01-16 15:36 | ED_ITS ---
HPI - Extremity Injury (Upper) General Chief Complaint: Extremity Injury, Upper Stated Complaint: thumb swollen and painful left Related Data Previous Rx's ?Medication ?Instructions ?Recorded atorvastatin 80 mg tablet 80 mg PO BEDTIME 90 days #90 tabs 07/25/22 blood-glucose sensor (Dexcom G6 #3 ea 08/28/23 Sensor device) cholecalciferol (vitamin D3) 50 50 mcg PO DAILY 90 days #90 caps 08/28/23 mcg (2,000 unit) capsule gabapentin 300 mg capsule See Rx Instructions PO .3 times a 08/28/23 day 30 days #360 caps insulin lispro 100 unit/mL See Rx Instructions subcut DAILY 12/21/23 subcutaneous solution 90 days #90 mL insulin glargine 100 unit/mL (3 30 unit (0.3 mL) subcut BID #15 mL 01/04/24 mL) subcutaneous pen (Lantus Solostar U-100 Insulin) Allergies Allergy/AdvReac Type Severity Reaction Status Date / Time No Known Allergies Allergy Verified 01/16/24 15:39 [No Known Allergies*] [facility] Past Medical History Medical History Severe major depression without psychotic features Hand numbness Vitamin D deficiency Obesity (BMI 30-39.9) Dyslipidemia Non-toxic multinodular goiter Diabetic retinopathy associated with type 1 diabetes mellitus Diabetic polyneuropathy associated with type 1 diabetes mellitus Diabetes type 1, controlled Surgical History S/P foot surgery, right 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 Mother No problems noted. Paternal Grandmother Diabetes Paternal Uncle Diabetes Family/Other Mental health disorder Social History Social History Housing: House Alcohol intake: current Alcohol intake frequency: holidays/special occasions only Alcohol type: beer Patient Tobacco Use Status: Current everyday Tobacco user Tobacco use type: Cigarette Cigarettes Per Day: 6 e-Cigarette/Vaping Use: Never Used Second Hand Smoke Exposure: No service: No Current occupational status: employed Current occupational exposures/hazards: No Cognitive needs: No Hearing needs: No Vision needs: No Physical Exam 2 Vital Signs: Vital Signs: Last Vital Signs Temp 98.5 F 01/16/24 19:40 Pulse 60 01/16/24 19:40 Resp 20 01/16/24 19:40 BP 144/91 H 01/16/24 19:40 Pulse Ox 99 01/16/24 19:40 O2 Del Method Room Air 01/16/24 19:40 BMI result Body Mass Index 36.8 Course Course Course Narrative: This is a Rapid Medical Examination (RME) performed by Joe Yee PA-C in triage. Full HPI, ROS, assessment and treatment plan per primary provider in the Main ED. 43 yo male hx T1DM here for eval of left thumb infection x2 weeks. reports increased swelling/ pain to left thumb. denies injury/ trauma. no hx gout. I received expect from [facility] to r/o osteo. on exam, swelling/ warmth noted to distal left thumb. no overlying skin changes. no deformity. limited ROM to DIP of left thumb d/t pain/ swelling. ttp. Plan: labs, xr Reevaluation(s) Reevaluation #1: Patient left the ED without completing treatment Medical Decision Making Lab Data 01/16/24 15:52 01/16/24 15:52 Labs: Lab Results 01/16/24 Range/Units 15:52 WBC 7.8 (4.8-10.8) X10*3/uL RBC 4.75 (4.60-5.80) X10*6/uL Hgb 13.4 L (14.0-18.0) g/dl Hct 40.7 L (42.0-52.0) % MCV 85.7 (80.0-98.0) fL MCH 28.2 (27.0-33.0) pg MCHC 32.9 (31.0-36.0) g/dl RDW 13.4 (11.0-16.0) % Plt Count 235 (160-400) X10*3/uL MPV 9.1 L (9.4-12.4) fL Immature Gran % (Auto) 0.3 (0.0-0.4) % Neut % (Auto) 71.5 (45-73) % Lymph % (Auto) 21.0 (20-40) % Dewitt % (Auto) 6.0 (2-11) % Eos % (Auto) 0.8 (0-4) % Baso % (Auto) 0.4 (0-2) % Lymph # (Auto) 1.6 (1.2-4.9) X10*3/uL Dewitt # (Auto) 0.5 (0.1-1.2) X10*3/uL Eos # (Auto) 0.1 (0.0-0.4) X10*3/uL Baso # (Auto) 0.0 (0.0-0.2) X10*3/uL Abs Immat Gran (auto) 0.02 (0.00-0.03) X10*3/uL Absolute Neuts (auto) 5.6 (2.0-8.3) x10*3/uL Absolute Nucleated RBC 0.000 (0.0-0.012) X10*3/uL Nucleated RBC % (auto) 0.0 (0.0-0.2) /100WBC Sodium 143 (135-145) mmol/L Potassium 4.0 (3.3-5.1) mmol/L Chloride 112 H (96-108) mmol/L Carbon Dioxide 25 (22-29) mmol/L Anion Gap 10 L (12-20) BUN 26 H (9-16) mg/dL Creatinine 0.95 (0.5-1.4) mg/dL Estim Creat Clear Calc 128.1 Estimated GFR > 60 Random Glucose 83 (60-115) mg/dL Uric Acid 5.9 (3.4-7.0) mg/dL Calcium 9.1 (8.4-10.2) mg/dL Magnesium 2.1 (1.6-2.6) mg/dL Total Bilirubin 0.3 (0.0-1.0) mg/dL AST 22 (5-37) U/L ALT 16 (0-40) U/L Alkaline Phosphatase 71 (39-117) U/L Total Protein 6.8 (6.5-8.0) g/dL Albumin 4.0 (3.5-5.0) g/dL Discharge Plan Discharge Clinical Impression: Pain of left thumb Patient Disposition: Left W/O Completing Treatment Prescriptions: No Action insulin glargine [Lantus Solostar U-100 Insulin] 100 unit/mL (3 mL) insulin pen 30 unit subcut BID Qty: 15 5RF atorvastatin 80 mg tablet 80 mg PO BEDTIME 90 Days Qty: 90 2RF gabapentin 300 mg capsule See Rx Instructions PO .3 times a day 30 Days Qty: 360 6RF Rx Instructions: Tablet in the morning, 1 tablet in the afternoon and 2 tablets at bedtime. PO .3 times a day; cholecalciferol (vitamin D3) 50 mcg (2,000 unit) capsule 50 mcg PO DAILY 90 Days Qty: 90 1RF (DME) DexBiotix G6 Sensor Device See Rx Instructions .Route Qty: 3 0RF Rx Instructions: slim cartridge, infusion set, transmitter kit insulin lispro 100 unit/mL solution See Rx Instructions subcut DAILY 90 Days Qty: 90 3RF Rx Instructions: Up to 80 units via insulin pump subcut daily; Discharge Date/Time: 01/16/24 22:12
[2024-01-16 15:37] VITALS: BP 146/50; PULSE 64; RESP 18; TEMP 36.6; O2SAT 99; BMI 36.8
[2024-01-16 15:55] LABS: MANUAL DIFF FLAG NO
[2024-01-16 15:58] LABS: Basophils Percent Auto 0.4 % (0-2); Eosinophils Absolute Auto 0.1 X10*3/uL (0.0-0.4); Eosinophils Percent Auto 0.8 % (0-4); Hematocrit 40.7 % (42.0-52.0); Hemoglobin 13.4 g/dl (14.0-18.0); Imm Gran Abs Auto 0.02 X10*3/uL (0.00-0.03); Imm Gran Pct Auto 0.3 % (0.0-0.4); Lymphocytes Absolute Auto 1.6 X10*3/uL (1.2-4.9); Mean Corpuscular HGB Conc 32.9 g/dl (31.0-36.0); Mean Corpuscular Hemoglobin 28.2 pg (27.0-33.0); Mean Corpuscular Volume 85.7 fL (80.0-98.0); Mean Platelet Volume 9.1 fL (9.4-12.4); Monocytes Absolute Auto 0.5 X10*3/uL (0.1-1.2); Neutrophils Absolute Auto 5.6 x10*3/uL (2.0-8.3); Neutrophils Percent Auto 71.5 % (45-73); Platelet Count 235 X10*3/uL (160-400); Red Blood Count 4.75 X10*6/uL (4.60-5.80); Red Cell Distribution Width 13.4 % (11.0-16.0); White Blood Count 7.8 X10*3/uL (4.8-10.8)
[2024-01-16 16:18] LABS: Alanine Aminotransferase 16 U/L (0-40); Alkaline Phosphatase 71 U/L (39-117); Anion Gap 10 (12-20); Aspartate Amino Transferase 22 U/L (5-37); Bilirubin Total 0.3 mg/dL (0.0-1.0); Blood Urea Nitrogen 26 mg/dL (9-16); Calcium 9.1 mg/dL (8.4-10.2); Carbon Dioxide 25 mmol/L (22-29); Chloride 112 mmol/L (96-108); Creatinine Clr Calc Pharmacy 128.1; Estimated Glomerular Filt Rate > 60; Glucose Random 83 mg/dL (60-115); Magnesium 2.1 mg/dL (1.6-2.6); Sodium 143 mmol/L (135-145); Total Protein 6.8 g/dL (6.5-8.0); Uric Acid 5.9 mg/dL (3.4-7.0)
--- OUTSIDE RECORDS SUMMARY | 2024-01-16 19:39 | XMS_ITS | Patient Health Record ---
Author Organization [facility] Address [address] [place], [place] [id number] Support Name Relationship Address Phone Larry Marion Emergency Contact [address] [place], [place] [id number] Larry Pandey Guarantor Unknown Unavaila ble REASON FOR REFERRAL No Information SOCIAL HISTORY Sex Assigned At : Social History Observation Description Sex Assigned At Unknown PLAN OF TREATMENT No Information Insurance Providers Payer Name Payer Address Payer Phone Subscriber Number Group Number Insured Name Patient Relationship to Insured Coverage Start Date Coverage End Date [place] Medicare Part [place] [employer] [address] [place] [address] [id number] Larry Pandey Self - patient is the insured
[2024-01-16 19:40] VITALS: BP 144/91; PULSE 60; RESP 20; TEMP 36.9; O2SAT 99
--- NOTE | 2024-01-16 22:11 | PC.NURSE ---
Pt left out of department, ambulatory in no acute distress.
== END 2024-01-16 22:12 | disposition left against medical advice (07) ==
PROVIDERS: Physician Assistant Medical; Emergency Provider Emergency Medicine; PCP Internal Medicine
DX: M79.645 Pain in left finger(s) (principal); Z79.899 Other long term (current) drug therapy
CPT/HCPCS: 36415; 73140; 80053; 83735; 84550; 85025; 99283

== ENCOUNTER 2024-01-22 09:09 | Outpatient (AMB) | payer BC, SELFPAY ==
--- NOTE | 2024-01-22 09:26 | MHC.AMDMED ---
Intake Intake Visit Reasons: T1DM/CONFIRMED Plastic And Reconstructive Surgeon Required: No Accompanied by: Self / Same As Patient Allergies No Known Allergies [No Known Allergies*] Allergy (Verified 01/16/24 15:39) HPI Comprehensive Diabetes Asmnt Most Recent Diabetes Results: Microalb/Creat Ratio 10.7 ug/mg cr (<30) 08/24/23 Cholesterol 188 mg/dL (<200) 08/24/23 HDL Cholesterol 53 mg/dL (>40) 08/24/23 Triglycerides 43 mg/dL (<150) 08/24/23 Creatinine 0.95 mg/dL (0.5-1.4) 01/16/24 Blood Urea Nitrogen 26 mg/dL (9-16) H 01/16/24 Sodium 143 mmol/L (135-145) 01/16/24 Potassium 4.0 mmol/L (3.3-5.1) 01/16/24 Chloride 112 mmol/L (96-108) H 01/16/24 Carbon Dioxide 25 mmol/L (22-29) 01/16/24 Calcium 9.1 mg/dL (8.4-10.2) 01/16/24 AST 22 U/L (5-37) 01/16/24 ALT 16 U/L (0-40) 01/16/24 Total Protein 6.8 g/dL (6.5-8.0) 01/16/24 Albumin 4.0 g/dL (3.5-5.0) 01/16/24 [facility] Medical History Severe major depression without psychotic features Hand numbness Vitamin D deficiency Obesity (BMI 30-39.9) Dyslipidemia Non-toxic multinodular goiter Diabetic retinopathy associated with type 1 diabetes mellitus Diabetic polyneuropathy associated with type 1 diabetes mellitus Diabetes type 1, controlled Surgical History S/P foot surgery, right 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 Mother No problems noted. Paternal Grandmother Diabetes Paternal Uncle Diabetes Family/Other Mental health disorder Social History (Reviewed 12/21/23 @ 09:34 by ANNA Martin Housing: House Alcohol intake: current Alcohol intake frequency: holidays/special occasions only Alcohol type: beer Patient Tobacco Use Status: Current everyday Tobacco user Tobacco use type: Cigarette Cigarettes Per Day: 6 e-Cigarette/Vaping Use: Never Used Second Hand Smoke Exposure: No service: No Current occupational status: employed Current occupational exposures/hazards: No Cognitive needs: No Hearing needs: No Vision needs: No Assessment & Plan Assessment & Plan (1) Diabetes type 1, controlled: Code(s): E10.9 - Type 1 diabetes mellitus without complications Qualifiers: Diabetes mellitus complication status: with neurologic complications Diabetes mellitus complication detail: with polyneuropathy Qualified Code(s): E10.42 - Type 1 diabetes mellitus with diabetic polyneuropathy Plan: Patient presents for pump training for T-Slim pump with Basal IQ and CGM training today. The following topics were reviewed today: Patient is currently off pump due to not being able to receive insulin pump supplies, or sensors Patient reports he is testing blood sugar with glucose meter but did not bring to today's visit Patient has started Lantus 30 units, b.i.d. however patient should only be doing Lantus once a day. Instructed patient to stop Lantus on 01/23/2024 and resume insulin pump therapy. Patient given samples of Dexcom G6 sensor in transmitter, in insulin delivery set and tandem cartridges Patient has to insulin pumps home, instructed patient to bring both insulin pumps to next visit on 01/29/2024 Spoke with medical radiation dosimetrist, who did speak to Ryne however patient must call [facility] to confirm he needs the insulin pump and sensor supplies Troubleshooting after starting new pod or inserting new insulin set: Occlusion, adhesive tape sensitivity, redness Check BG 2 hours after site change Safety information: Importance of a backup plan, for manual injections, proper prescriptions and emergency supplies ketone strips, and rules for testing for ketones Patient understands the basic concepts of pump therapy, how to give insulin for meals and snacks, how to troubleshoot for hyper and hypoglycemia. Patient will follow-up with ripening room attendant in 6 weeks Patient Instructions: Resume insulin pump therapy on 01/23/2024 Bring both insulin pumps to follow-up visit with ripening room attendant on 01/29/2024 Coding Level of Care Code Est Pt Level 1 (38672) Diagnoses Controlled type 1 diabetes mellitus with diabetic polyneuropathy E10.42 Diabetes mellitus complication status: with neurologic complications Diabetes mellitus complication detail: with polyneuropathy
== END 2024-01-22 09:30 | disposition home or self-care (01) ==
PROVIDERS: PCP Internal Medicine; Visit Provider Registered Nurse Diabetes Educator
DX: E10.42 Type 1 diabetes mellitus with diabetic polyneuropathy (principal)

== ENCOUNTER → 2024-01-22 09:09 | Outpatient (BNVA) | payer BC, SELFPAY | PROVIDERS: PCP Internal Medicine; Visit Provider Registered Nurse Diabetes Educator | DX: Z46.81 Encounter for fitting and adjustment of insulin pump (principal); E10.42 Type 1 diabetes mellitus with diabetic polyneuropathy | CPT/HCPCS: 99211 ==

== ENCOUNTER 2024-01-29 07:38 | Outpatient (AMB) | payer BC, SELFPAY ==
--- NOTE | 2024-01-29 08:24 | A.OFFVIS_ITS ---
Intake Intake Visit Reasons: 60Min/CONFIRMED Compliance Quality Performance Analyst Required: Yes Compliance Quality Performance Analyst Language: Javascript Ui Developer Services: Compliance Quality Performance Analyst Present Compliance Quality Performance Analyst Name: Soraya [facility] Information Interpreted: non-clinical & clinical Accompanied by: Self / Same As Patient Allergies No Known Allergies [No Known Allergies*] Allergy (Verified 01/16/24 15:39) HPI Comprehensive Diabetes Asmnt Most Recent Diabetes Results: Microalb/Creat Ratio 10.7 ug/mg cr (<30) 08/24/23 Cholesterol 188 mg/dL (<200) 08/24/23 HDL Cholesterol 53 mg/dL (>40) 08/24/23 Triglycerides 43 mg/dL (<150) 08/24/23 Creatinine 0.95 mg/dL (0.5-1.4) 01/16/24 Blood Urea Nitrogen 26 mg/dL (9-16) H 01/16/24 Sodium 143 mmol/L (135-145) 01/16/24 Potassium 4.0 mmol/L (3.3-5.1) 01/16/24 Chloride 112 mmol/L (96-108) H 01/16/24 Carbon Dioxide 25 mmol/L (22-29) 01/16/24 Calcium 9.1 mg/dL (8.4-10.2) 01/16/24 AST 22 U/L (5-37) 01/16/24 ALT 16 U/L (0-40) 01/16/24 Total Protein 6.8 g/dL (6.5-8.0) 01/16/24 Albumin 4.0 g/dL (3.5-5.0) 01/16/24 [facility] Medical History Severe major depression without psychotic features Hand numbness Vitamin D deficiency Obesity (BMI 30-39.9) Dyslipidemia Non-toxic multinodular goiter Diabetic retinopathy associated with type 1 diabetes mellitus Diabetic polyneuropathy associated with type 1 diabetes mellitus Diabetes type 1, controlled Surgical History S/P foot surgery, right 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 Mother No problems noted. Paternal Grandmother Diabetes Paternal Uncle Diabetes Family/Other Mental health disorder Social History Housing: House Alcohol intake: current Alcohol intake frequency: holidays/special occasions only Alcohol type: beer Patient Tobacco Use Status: Current everyday Tobacco user Tobacco use type: Cigarette Cigarettes Per Day: 6 e-Cigarette/Vaping Use: Never Used Second Hand Smoke Exposure: No service: No Current occupational status: employed Current occupational exposures/hazards: No Cognitive needs: No Hearing needs: No Vision needs: No Assessment & Plan Assessment & Plan (1) Diabetic polyneuropathy associated with type 1 diabetes mellitus: Code(s): E10.42 - Type 1 diabetes mellitus with diabetic polyneuropathy Plan: Patient presents for pump training for T-Slim with Basal IQ pump and CGM training today. Patient at visit to have insulin pump settings entered into Tandem control IQ insulin pump The following topics were reviewed today: -Pump therapy basic concepts: Basal/bolus, insulin to carb ratio, correction factor, insulin on board -Device settings: Bluetooth/mobile connection (if applicable), correct date and time, sound volume ??? High Alert: 250 mg/dl ??? Low Alert: 70 mg/dl CGM data: Above target 5% In target 94% Below target 1% Average glucose for the past 7 days 117 mg/dL Entered current insulin pump settings into patient's new insulin pump, instructed patient at next insulin delivery set change he will need to shut down T slim basal IQ, enter Dexcom G6 transmitter number into T slim control IQ, and resume insulin pump therapy with new insulin pump Patient instructed to contact [employer], so he can get his insulin pump and sensor supplies. Patient given toll free number to [employer] customer service line in [place] Insulin delivery settings Program insulin to carb ratio, correction factor, target blood glucose, suspend or resume insulin delivery, bolus limit and basal limit settings Instructed patient to only use room temperature insulin, how to load cartridge or fill pod, with insulin. Fill tubing and cannula (if applicable) Troubleshooting after starting new pod or inserting new insulin set: Occlusion, adhesive tape sensitivity, redness Check BG 2 hours after site change Safety information: Importance of a backup plan, for manual injections, proper prescriptions and emergency supplies ketone strips, and rules for testing for ketones Patient understands the basic concepts of pump therapy, how to give insulin for meals and snacks, how to troubleshoot for hyper and hypoglycemia. Setting verified by [facility] Basal rate(s) (units/hour) : 12 AM? to 2 AM 1.35 units / hr 2 AM? to 11 AM 1.35 units / hr 11 AM to 4 PM 1.1 units / hr 4 PM to 12 AM 1.13 units / hr Bolus setting 12 AM? to 2 AM 1: 10 2 AM? to 12 AM 1:9 Correction Factor / Sensitivity Factor 12 AM? to 2 AM 1:40 2 AM? to 4 PM 1:35 4 PM to 12 AM 1:40 Control IQ Active Insulin Time:? 5 hours Control IQ Target(s): 12 AM? to 12 AM 110 mg/dL Patient will follow up with [facility] as instructed Patient will contact [facility] with questions or concerns, patient given IT number to support in any technical issues related to insulin pump Portions of this note were created using voice recognition software, please excuse any words or phrases that may have been misinterpreted. Patient Instructions: Patient will enter Dexcom G6 transmitter number into T slim with control IQ at next insulin delivery set change Patient will follow-up with environmental educator in 1 week Coding Level of Care Code Est Pt Level 1 (20824) Diagnoses Diabetic polyneuropathy associated with type 1 diabetes mellitus E10.42
== END 2024-01-29 08:27 | disposition home or self-care (01) ==
PROVIDERS: PCP Internal Medicine; Visit Provider Registered Nurse Diabetes Educator
DX: E10.42 Type 1 diabetes mellitus with diabetic polyneuropathy (principal)

== ENCOUNTER → 2024-01-29 07:38 | Outpatient (BNVA) | payer BC, SELFPAY | PROVIDERS: PCP Internal Medicine; Visit Provider Registered Nurse Diabetes Educator | DX: Z46.81 Encounter for fitting and adjustment of insulin pump (principal); E10.42 Type 1 diabetes mellitus with diabetic polyneuropathy | CPT/HCPCS: 99211 ==

== ENCOUNTER 2024-02-29 09:10 | Outpatient (AMB) | payer BC, SELFPAY ==
--- NOTE | 2024-02-29 09:14 | A.OFFPC_ITS ---
Vital Signs 02/29/24 09:16 Height 5 ft 10 in Weight 258 lb BMI 37.0 BP 110/62 Blood Pressure Location Lt brachial Position Sitting Intake Visit Reasons: pe Intake Note: Patient here for a physical exam Tube Coverer Required: No Accompanied by: Self / Same As Patient Allergies No Known Allergies [No Known Allergies*] Allergy (Verified 02/29/24 09:28) Medication List - Last Reconciled 02/29/24 by Elly Anne MD atorvastatin 80 mg PO BEDTIME 90 days blood-glucose sensor (Dexcom G7 Sensor device) As directed change every 10 days cholecalciferol (vitamin D3) 50 mcg PO DAILY 90 days gabapentin Tablet in the morning, 1 tablet in the afternoon and 2 tablets at bedtime. PO .3 times a day; 30 days insulin lispro Up to 80 units via insulin pump subcut daily; 90 days Tobacco use date assessed: 08/28/23 Dental Screening Dental Screen Date: 08/28/23 HPI HPI Comments History of Present Illness Details This is a 44-year-old male with type 1 diabetes mellitus complicated by polyneuropathy and severe major depression that comes for his physical exam. Last A1c was within goal. Last diabetic eye exam was less than a year ago. Has severe major depression with no suicidal thoughts and declines any treatment. No acute complaints. ON LICENSE OF [facility] Medical History (Updated 02/29/24 @ 09:39 by Elly Anne MD) Severe major depression without psychotic features Hand numbness Vitamin D deficiency Obesity (BMI 30-39.9) Dyslipidemia Non-toxic multinodular goiter Diabetic retinopathy associated with type 1 diabetes mellitus Diabetic polyneuropathy associated with type 1 diabetes mellitus Diabetes type 1, controlled Surgical History History of amputation of toe S/P foot surgery, right History of complete ray amputation of second toe of left foot Hx of circumcision Family History (Updated 02/29/24 @ 09:32 by Elly Anne MD) Father Stroke Mother No problems noted. Paternal Grandmother Diabetes Paternal Uncle Diabetes Family/Other Mental health disorder Social History (Updated 02/29/24 @ 09:32 by Elly Anne MD) Housing: House Alcohol intake: current Alcohol intake frequency: holidays/special occasions only Alcohol type: beer Patient Tobacco Use Status: Current everyday Tobacco user Tobacco use type: Cigarette Cigarettes Per Day: 8 e-Cigarette/Vaping Use: Never Used Second Hand Smoke Exposure: No service: No Current occupational status: employed Current occupational exposures/hazards: No Cognitive needs: No Hearing needs: No Vision needs: No Questionnaire Thrive Questionnaire Date Thrive assessed: 08/28/23 TEODORO-7 AMB Questionnaire TEODORO-7 Date TEODORO - 7 assessed: 11/23/22 Source: Developed by Drs. Jace Padilla, Earlene Perez, Bogdan Luong and colleagues, with an educational lydia from [employer]. Review of Systems Const All systems reviewed & are unremarkable except as noted in HPI and below Card Denies chest pain at rest, Denies chest pain with activity, Denies edema, Denies irregular heart rhythm, Denies claudication, Denies dyspnea, Denies dyspnea on exertion, Denies orthopnea, Denies paroxysmal nocturnal dyspnea and Denies slow heart rate Resp Denies cough, Denies dyspnea and Denies dyspnea on exertion GI Denies abdominal pain, Denies change in bowel habits, Denies excessive flatus, Denies nausea and Denies vomiting Physical exam (Primary Care) Vital Signs: Last Vital Signs BP 110/62 02/29/24 09:16 BMI result Body Mass Index 37.0 Tobacco/Smoking Status: Tobacco use Status Tobacco use date assessed 08/28/23 02/29/24 09:19 Patient Tobacco Use Status Current everyday Tobacco 02/29/24 09:19 Tobacco use type Cigarette 02/29/24 09:19 e-Cigarette/Vaping Use Never Used 02/29/24 09:19 Thrive Assessment: Date of Thrive Assessment Date Thrive assessed 08/28/23 02/29/24 09:19 [facility] Head: Yes normal to inspection, Yes normocephalic and Yes atraumatic Ears: external ears normal Eyes General: appearance normal, both eyes and all related structures Eyelids: Yes eyelids normal Conjunctivae: conjunctivae normal Neck Neck: Yes normal visual inspection and Yes supple Resp Effort & Inspection: normal respiratory effort Auscultation: clear to auscultation bilaterally Cardio Jugular venous distension: no JVD Rate: regular rate Rhythm: regular rhythm Heart sounds: S1 normal heart sound present and S2 normal heart sound present GI Inspection: Yes normal to inspection Palpation (GI): Soft to palpation and nontender Auscultation: normal bowel sounds Skin General skin exam: no rashes or lesions noted Neuro General: no focal motor deficits Extrem General: Yes full ROM Psych Appearance: grossly normal Assessment and Plan Assessment & Plan (1) Physical exam: Code(s): Z00.00 - Encounter for general adult medical examination without abnormal findings Plan: Repeat in a year. (2) Severe major depression without psychotic features: Code(s): F32.2 - Major depressive disorder, single episode, severe without psychotic features Plan: Declines treatment. (3) Diabetic polyneuropathy associated with type 1 diabetes mellitus: Code(s): E10.42 - Type 1 diabetes mellitus with diabetic polyneuropathy Plan: Continue insulin pump. A1c goal is equal or less than 7%. Orders: Orders Vitamin D 25-OH Total Today E55.9 - Vitamin D deficiency, unspecified Microalbumin, Random (w Creat) Today E11.9 - Type 2 diabetes mellitus without complications Lipid Panel Today E78.5 - Hyperlipidemia, unspecified Complete Blood Count Auto Diff Today D64.9 - Anemia, unspecified IRON PROFILE Today D64.9 - Anemia, unspecified Comprehensive [place]. Panel Fast Today E10.42 - Type 1 diabetes mellitus with diabetic polyneuropathy Medications: Refilled gabapentin Tablet in the morning, 1 tablet in the afternoon and 2 tablets at bedtime. PO .3 times a day; 30 days 360 caps 6RF E10.42 - Type 1 diabetes mellitus with diabetic polyneuropathy Coding Level of Care Code Est Pt Prev Care 40-64y(70454) Diagnoses Physical exam Z00.00 Severe major depression without psychotic features F32.2 Diabetic polyneuropathy associated with type 1 diabetes mellitus E10.42 Time Spent (min) 30
[2024-02-29 09:16] VITALS: BP 110/62; BMI 37.0
== END 2024-02-29 09:40 | disposition home or self-care (01) ==
PROVIDERS: PCP Internal Medicine; Visit Provider Internal Medicine
DX: Z00.00 Encounter for general adult medical examination without abnormal findings (principal); F32.2 Major depressive disorder, single episode, severe without psychotic features; E10.42 Type 1 diabetes mellitus with diabetic polyneuropathy
CPT/HCPCS: 99396

== ENCOUNTER 2024-03-21 07:53 | Outpatient (AMB) | payer BC, SELFPAY ==
--- NOTE | 2024-03-21 08:01 | A.OFFVIS_ITS ---
Vital Signs 03/21/24 08:08 Height 5 ft 10 in Weight 257 lb 15.053 oz BMI 37.0 BP 124/74 Blood Pressure Location Rt brachial Position Sitting Pulse 67 Pulse Source Pulse Oximeter Intake Visit Reasons: f/u Type 1 DM/ hyperlipidemia/LVM Intake Note: Patient presents today to re-establish treatment on Type 1 Diabetes Mellitus: Last Diabetic Eye exam: 10/2023 Last Podiatry Exam: Every 2 months, [employer] Demand Planning Analyst Most recent HbA1c: 6.6%, 03/21/2024 Random Glucose- 137mg/dL, Today Cheese Wrapper Required: Yes Cheese Wrapper Language: Magnetic Resonance Imaging Coordinator Services: Cheese Wrapper Present Cheese Wrapper Name: MARIA ALEJANDRA Dickey/AILEEN PEDERSEN Information Interpreted: non-clinical & clinical Accompanied by: Self / Same As Patient Allergies No Known Allergies [No Known Allergies*] Allergy (Verified 03/21/24 08:01) Medication List - Last Reconciled 03/21/24 by Shanta Roblero NP acetone (urine) test (Ketone Urine Test strips) As directed atorvastatin 80 mg PO BEDTIME 90 days blood-glucose sensor (Dexcom G7 Sensor device) As directed change every 10 days cholecalciferol (vitamin D3) 50 mcg PO DAILY 90 days gabapentin Tablet in the morning, 1 tablet in the afternoon and 2 tablets at bedtime. PO .3 times a day; 30 days glucagon 3 mg/actuation (Baqsimi) 3 mg intranasal BID PRN 30 days MDD 6 mg insulin glargine (Lantus U-100 Insulin) 23 units subcut DAILY PRN insulin lispro Up to 80 units via insulin pump subcut daily; 90 days HPI Comments Details: 42 yo male today for fup visit, for DM 1 He was last seen by Dr. Jc in December 2023 and by CDE 01/28. He has been on a pump since approx 2017. Diagnosed in 1999 in DKA. He is feeling well. Hemoglobin A1c in the office today is 6.6%. Dexcom average glucose: 117 Carbs entered 166 g daily average Glucose Managment indicator unable to obtain less than 6 days in use TIme in range: 0 % very high (above 250) 5 % high ?(181-250) 94 % in range ?(70-180] 1 % low (69-55) 0 % ?very low (below 54) Pump download in excellent range using basal IQ 100% of the time Basal insulin 60% 23 units bolus insulin 40% 15 units total daily dose 30.1 Basal rate(s) (units/hour) : 12 AM? to 2 AM 1.35 units / hr 2 AM? to 11 AM 1.35 units / hr 11 AM to 4 PM 1.1 units / hr 4 PM to 12 AM 1.13 units / hr Bolus setting 12 AM? to 2 AM 1: 10 2 AM? to 12 AM 1:9 Correction Factor / Sensitivity Factor 12 AM? to 2 AM 1:40 2 AM? to 4 PM 1:35 4 PM to 12 AM 1:40 Control IQ Active Insulin Time:? 5 hours Control IQ Target(s): 12 AM? to 12 AM 110 mg/dL Patient is on basal IQ tandem with the dexcom G6. He has DM type 1 diagnosed at age 23. He has Other PMH of hyperlipidemia, hypertension. 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 He has neuropathy positive numbness, retinopathy(hypertensive) but no known nephropathy or macrovascular disease. Rare hypoglycemia Last opth: 08/30 Hypertensive retinopathy Podiatry every 2 months, check feet daily does not walk barefoot Right Thyroid Lobe: 5.9 x 3.0 x 2.5 cm, volume 23.1 mL. Parenchyma: The gland echotexture is homogeneous. Thyroid vascularity is normal. Left Thyroid Lobe: 4.7 x 2.3 x 2.3 cm, volume 13.0 mL. Parenchyma: The gland echotexture is homogeneous. Thyroid vascularity is normal. Isthmus: 1.2 cm in maximum AP dimension. RIGHT THYROID LOBE: There is 1 nodule seen. 1. Location: Low/lateral. Size: 0.4 x 0.2 x 0.3 cm. Nodule characteristics: Hypoechoic and complex cystic, smooth margins, small calcification and no intranodular flow. Ultrasound appearance is suggestive of a colloid cyst. ISTHMUS: There is 1 nodule seen. 1. Location: Isthmus. Size: 0.6 x 0.3 x 0.6 cm. Nodule characteristics: Heterogeneous, smooth margins, no calcification and minimal peripheral flow. Question lobulated contour of the isthmus versus isoechoic nodule. This measures 1.1 x 1.4 cm in AP and transverse dimension. This is isoechoic, no calcification and demonstrates minimal flow. This is not well visualized sagittally for measurement. LEFT THYROID LOBE: There is 1 nodule seen. 1. Location: Mid. Size: 0.4 x 0.3 x 0.4 cm. Nodule characteristics: Hypoechoic and cystic, smooth margins, no calcification and no intranodular flow. NODES: No lymphadenopathy is seen in the tissue surrounding the thyroid gland. 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 Paternal Grandmother Diabetes Paternal Uncle Diabetes Family/Other Mental health disorder Social History Housing: House Alcohol intake: current Alcohol intake frequency: holidays/special occasions only Alcohol type: beer Patient Tobacco Use Status: Current everyday Tobacco user Tobacco use type: Cigarette Cigarettes Per Day: 8 e-Cigarette/Vaping Use: Never Used Second Hand Smoke Exposure: No service: No Current occupational status: employed Current occupational exposures/hazards: No Cognitive needs: No Hearing needs: No Vision needs: No Physical Exam Vital Signs: Last Vital Signs Pulse 67 03/21/24 08:08 BP 124/74 03/21/24 08:08 BMI result Body Mass Index 37.0 Const Other: Absence of Cushingoid features. Absence of acromegalic features. Neck exam reveals nl size thyroid about 15 gms. No thyroid nodules palpable. Heart S1 S2, Reg R/R. No M/R G. Skin exam reveals absence of vitiligo or acanthosis nigricans. no edema Extrem Other: Visual exam of foot performed. There is a 2nd and 5th digit amputation on the right foot and a 2nd digit amputation on the left. shallow ulcer on 2nd L toe or open lesions. No onchomycosis, no callouses.Pulses 2 + distally. Sensation intact to monofilament exam. Vibratory sensation sensed is decreased , with 128 Hz tuning fork Results AMB Hemoglobin A1c AMB Hemoglobin A1c 6.6 % Last Edit by MARIA ALEJANDRA Dickey on 03/21/24 08:32 Results Reviewed Results Reviewed: Laboratory Last Values Glucose (Clinic) 137 mg/dL (60-115) H 03/21/24 08:10 Laboratory Tests 07/21/22 08/24/23 08/28/23 07:45 08:00 14:56 Plt Count Potassium Creatinine Estim Creat Clear Calc Estimated GFR Hgb A1c (Clinic) 6.6 H Calcium AST ALT Triglycerides 43 Cholesterol 188 LDL Cholesterol, Calc 127 H HDL Cholesterol 53 25-OH Vitamin D Total 17.5 L TSH 1.07 12/21/23 01/16/24 09:45 15:52 Plt Count 235 Potassium 4.0 Creatinine 0.95 Estim Creat Clear Calc 128.1 Estimated GFR > 60 Hgb A1c (Clinic) 7.0 H Calcium 9.1 AST 22 ALT 16 Triglycerides Cholesterol LDL Cholesterol, Calc HDL Cholesterol 25-OH Vitamin D Total TSH Assessment & Plan Assessment & Plan (1) Diabetes type 1, controlled: Code(s): E10.9 - Type 1 diabetes mellitus without complications Category: Medical Qualifiers: Diabetes mellitus complication status: with neurologic complications Diabetes mellitus complication detail: with polyneuropathy Qualified Code(s): E10.42 - Type 1 diabetes mellitus with diabetic polyneuropathy Plan: 44-year-old male with type 1 diabetes on a tandem T slim pump with Dexcom sensor in excellent control. Hemoglobin A1c in the office today is 6.6%. Prescriptions for glucagon nasal spray, ketones sent to the pharmacy. Patient has backup Lantus 23 units for pump failure plus usual doses of Humalog. Orders: Orders AMB Hemoglobin A1c Today E10.42 - Type 1 diabetes mellitus with diabetic polyneuropathy Medications: New glucagon 3 mg/actuation (Baqsimi) 3 mg intranasal BID 30 days PRN 2 ea 2RF Unresponsive hypoglycemia MDD 6 mg E10.42 - Type 1 diabetes mellitus with di abetic polyneuropathy acetone (urine) test (Ketone Urine Test strips) As directed 25 ea 1RF Glucose 250, illness, nausea and vomiting E10.42 - Type 1 diabetes mellitus with diabetic polyneuropathy Patient Instructions: The patient was counseled to achieve a target A1C of 7% (154 avg). Fasting blood sugars should be 90-130 in the morning and less than 180 two hours after meals. Reviewed the relationship between poor diabetic control and the developement of complications. The patient was counseled to always carry a source of sugar and on the rule of 15's: Take 3 glucose tablets and repeat again in 15 minutes if blood sugar is not in normal range. Continue to repeat every 15 minutes until blood sugar is normal. The patient was counseled to wear closed toe shoes, never walk barefooted and to inspect the feet daily. For any signs of infection or open wound patient should notify PCP or go to urgent care. Symptoms of DKA were reviewed: early: frequent urination, dry mouth, fatigue, feeling ill, severe symptoms: ketones in the urine, abdominal pain, nausea, vomiting and weakness. It is important to hydrate with sugar free liquids every 30 minutes and bring the sugars down to normal levels. Coding Level of Care Code Est Pt Level 5 (35139) Complex EM visit Add On G2211 Diagnoses Controlled type 1 diabetes mellitus with diabetic polyneuropathy E10.42 Diabetes mellitus complication status: with neurologic complications Diabetes mellitus complication detail: with polyneuropathy Time Spent (min) 50 Comment Time spent reviewing labs/provider notes, sensor/pump reports, face to face, chart doc
[2024-03-21 08:08] VITALS: BP 124/74; PULSE 67; BMI 37.0
[2024-03-21 08:14] LABS: Glucose, Whole Blood 137 mg/dL (60-115)
== END 2024-03-21 08:34 | disposition home or self-care (01) ==
PROVIDERS: PCP Internal Medicine; Visit Provider Nurse Practitioner Adult Health
DX: E10.42 Type 1 diabetes mellitus with diabetic polyneuropathy (principal)
CPT/HCPCS: 99215

== ENCOUNTER → 2024-03-21 07:53 | Outpatient (BNVA) | payer BC, SELFPAY | PROVIDERS: PCP Internal Medicine; Visit Provider Nurse Practitioner Adult Health | DX: E10.42 Type 1 diabetes mellitus with diabetic polyneuropathy (principal); Z96.41 Presence of insulin pump (external) (internal) | CPT/HCPCS: 82947; 83036 ==

== ENCOUNTER 2024-08-26 09:05 | Inpatient (IN) | payer BC, SELFPAY ==
--- NOTE | ~2024-08-26 | XR_ITS ---
CLINICAL HISTORY: cough r o pneumonia 2 view chest x-ray Comparison: CR - CHEST 2 VIEWS [id number] - 11/23/13 23:05 EDT Findings: The lungs are clear. Heart size is normal. No acute fracture. IMPRESSION: 1. No acute findings. This document has been electronically signed by: Yasmani Jacome MD, PHD on 08/26/2024 22:17:18
--- NOTE | ~2024-08-26 | US_ITS ---
EXAMINATION: US EXTRACRANIAL CAROTID DUPLEX, BILATERAL CLINICAL INFORMATION: CVA. COMPARISON: No prior available. TECHNIQUE: Real-time ultrasound and Doppler techniques (integrating B-mode 2-D vascular images, Doppler spectral analysis and color-flow Doppler imaging) were utilized to interrogate the extracranial carotid arteries, the vertebral arteries and proximal subclavian arteries bilaterally. The degree of stenosis is determined by criteria similar to NASCET. FINDINGS: Right Side: 1. There is mild atherosclerotic plaque seen in the bifurcation/proximal ICA region. 2. The common carotid artery PSV proximally is 130 cm/s and distally 93 cm/s. 3. The proximal internal carotid artery velocities are 93 cm/s systolic and 26 cm/s diastolic. 4. The proximal external carotid artery PSV is 159 cm/s. 5. The vertebral artery shows normal antegrade flow. 6. The subclavian artery waveforms are normal. Left Side: 1. There is mild atherosclerotic plaque seen in the bifurcation/proximal ICA region. 2. The common carotid artery PSV proximally is 130 cm/s and distally 78 cm/s. 3. The proximal internal carotid artery velocities are 87 cm/s systolic and 26 cm/s diastolic. 4. The proximal external carotid artery PSV is 103 cm/s. 5. The vertebral artery shows normal antegrade flow. 6. The subclavian artery waveforms are normal. Incidental note made of a right lower pole/isthmus thyroid nodule which is partially cystic measuring 1.4 x 0.9 x 1.3 cm. This would equate to a TR category 3 nodule. No follow-up with the recommended. US/US carotid duplex BI IMPRESSION: 1. RIGHT: Minimal, non-hemodynamically significant stenosis of the proximal right internal carotid artery corresponding to a 0-49% stenosis by velocity criteria. 2. LEFT: Minimal, non-hemodynamically significant stenosis of the proximal left internal carotid artery corresponding to a 0-49% stenosis by velocity criteria. Electronically signed by: Rohit Canas MD 08/27/2024 10:53 AM [facility]
--- NOTE | ~2024-08-26 | MR_ITS ---
CLINICAL HISTORY: Left arm, leg weakness, ataxia x5 days R O stroke MR Brain without gadolinium Comparison: None Findings: 1.3 cm focus of restricted diffusion within the right side of the yousif. This demonstrates hyperintensity on T2 weighted sequences. There are numerous T2 hyperintensities within the white matter including involvement of the periventricular white matter. No intracranial hemorrhage. No midline shift. No hydrocephalus. Vascular flow voids are intact. The orbits are normal. There is partial opacification of the mastoid air cells, left more pronounced than right. Paranasal sinuses are clear. No focal bone lesion. IMPRESSION: 1. 1.3 cm focus of restricted diffusion within the yousif may represent an acute infarct or focus of active demyelination. 2. Numerous T2 hyperintensities within the white matter with an appearance raising the possibility of a demyelinating process such as multiple sclerosis. 3. Inflammatory changes of the mastoid air cells. This document has been electronically signed by: Sobeida Cadena MD on 08/26/2024 17:49:59
[2024-08-26 09:12] VITALS: BP 160/84; PULSE 68; RESP 18; TEMP 36.7; O2SAT 100; BMI 35.3
[2024-08-26 09:35] LABS: MANUAL DIFF FLAG NO
[2024-08-26 09:37] LABS: Basophils Percent Auto 0.4 % (0-2); Eosinophils Percent Auto 0.4 % (0-4); Hematocrit 43.9 % (42.0-52.0); Hemoglobin 14.6 g/dl (14.0-18.0); Imm Gran Abs Auto 0.01 X10*3/uL (0.00-0.03); Imm Gran Pct Auto 0.1 % (0.0-0.4); Lymphocytes Absolute Auto 1.8 X10*3/uL (1.2-4.9); Lymphocytes Percent Auto 24.6 % (20-40); Mean Corpuscular HGB Conc 33.3 g/dl (31.0-36.0); Mean Corpuscular Hemoglobin 28.2 pg (27.0-33.0); Mean Corpuscular Volume 84.7 fL (80.0-98.0); Mean Platelet Volume 9.3 fL (9.4-12.4); Monocytes Absolute Auto 0.5 X10*3/uL (0.1-1.2); Monocytes Percent Auto 6.4 % (2-11); Neutrophils Absolute Auto 4.9 x10*3/uL (2.0-8.3); Neutrophils Percent Auto 68.1 % (45-73); Platelet Count 243 X10*3/uL (160-400); Red Blood Count 5.18 X10*6/uL (4.60-5.80); Red Cell Distribution Width 13.6 % (11.0-16.0); White Blood Count 7.2 X10*3/uL (4.8-10.8)
[2024-08-26 09:41] LABS: INTERNATIONAL NORM RATIO 0.9 (0.9-1.1)
[2024-08-26 09:49] LABS: Alanine Aminotransferase 27 U/L (0-40); Albumin Level 4.2 g/dL (3.5-5.0); Alkaline Phosphatase 75 U/L (39-117); Anion Gap 11 (12-20); Aspartate Amino Transferase 28 U/L (5-37); Bilirubin Total 0.3 mg/dL (0.0-1.0); Blood Urea Nitrogen 15 mg/dL (9-16); Carbon Dioxide 23 mmol/L (22-29); Chloride 110 mmol/L (96-108); Creatinine Clr Calc Pharmacy 168.4; Estimated Glomerular Filt Rate > 60; Glucose Random 130 mg/dL (60-115); Potassium 4.1 mmol/L (3.3-5.1); Sodium 140 mmol/L (135-145); Total Protein 7.3 g/dL (6.5-8.0)
--- NOTE | 2024-08-26 10:54 | ED.NEUROSD ---
HPI - Neuro Symptoms/Deficit General Chief Complaint: Neuro Symptoms/Deficit Stated Complaint: Facial numbness, l arm numbness Time Seen by Provider: 08/26/24 10:54 Source: patient Mode of arrival: ambulatory Limitations: language barrier [place] [facility] [place] History of Present Illness ED Provider: Dr. Herbert Mcpherson HPI Narrative: 44-year-old male with a history of depression, obesity, dyslipidemia, multinodular goiter, diabetes who presents emergency department for evaluation of left-sided numbness times 5 days. Patient states that he was visiting his mother in [place], she was ill. He then developed URI like symptoms which included chills, rhinorrhea, sore throat and cough. He states he tested himself for COVID and was negative. He then developed left arm and left leg weakness. He states that he has numbness in his extremities due to his diabetic neuropathy and this is unchanged. He denied headache, nausea, vomiting or diarrhea. He denied myalgias arthralgias Related Data Home Medications ?Medication ?Instructions ?Recorded ?Confirmed ibuprofen 200 mg tablet 800 mg PO DAILY PRN Fever Or Pain 08/26/24 08/26/24 insulin glargine 100 unit/mL (3 30 unit subcut BID 08/26/24 08/26/24 mL) subcutaneous pen (Lantus Solostar U-100 Insulin) magnesium oxide 400 mg PO DAILY 08/26/24 08/26/24 Previous Rx's ?Medication ?Instructions ?Recorded blood-glucose sensor (Dexcom G7 #3 ea 02/05/24 Sensor device) acetone (urine) test (Ketone Urine #25 ea 03/21/24 Test strips) Allergies Allergy/AdvReac Type Severity Reaction Status Date / Time No Known Allergies Allergy Verified 08/26/24 09:15 [No Known Allergies*] Review of Systems Review of Systems: Yes all other systems are reviewed and are negative [facility] Past Medical History [facility] Narrative: Social history: Patient smokes 10 cigarettes per day times 20 years. He denies alcohol use. He does smoke marijuana. Denies other drug use. 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 Paternal Grandmother Diabetes Paternal Uncle Diabetes Family/Other Mental health disorder Social History Social History Household Members: Spouse Housing: House Do you presently have visiting nurse or other home services: No Alcohol intake: current Alcohol intake frequency: holidays/special occasions only Alcohol type: beer Patient Tobacco Use Status: Current everyday Tobacco user Tobacco use type: Cigarette Cigarettes Per Day: 10 Smoked in Last 30 Days: Yes e-Cigarette/Vaping Use: Currently Using Patient Interested in Nicotine Replacement: No Second Hand Smoke Exposure: No Use of substances other than those prescribed or required for medical reasons: No Substance Use Type: Marijuana Substance Use Frequency: Daily Last Used Substance: Days (ago) Last Used Substance Other:: 08/26/24 Currently Displaying Signs/Symptoms of Drug Intoxication Withdrawal: No Have you been hit, kicked, punched, or otherwise hurt by someone within the past year? If so, by whom?: No Do you feel safe in your current relationship?: Yes Is there a partner from a previous relationship who is making you feel unsafe now?: No Are you made to feel afraid or neglected: No Advance Directives: No Advance Directives Information Provided: Yes Do you have a plan to hurt others: No Plan Recently lost weight without trying: No How much weight loss: 34pounds or more service: No Current occupational status: employed Current occupational exposures/hazards: No Cognitive needs: No Hearing needs: No Vision needs: No Physical Exam Vital Signs: Vital Signs: Last Vital Signs Temp 98.3 F 08/27/24 19:55 Pulse 62 08/27/24 22:00 Resp 12 08/27/24 22:00 BP 135/80 08/27/24 22:00 Pulse Ox 98 08/27/24 22:00 O2 Del Method Room Air 08/27/24 19:55 BMI result Body Mass Index 35.3 Vital signs revealed an elevated blood pressure of 150/88 and a low heart rate of 56. Exam: General: Awake, alert in no distress Head: Normocephalic, atraumatic EENT: PERRL, Lids normal, sclera normal, conjunctiva normal, nose normal , ears normal, throat without erythema or exudates Neck: Supple, no adenopathy Lung: breath sounds symmetric, no wheezing, rales or rhonchi Chest: symmetric movement, nontender Heart: regular rate and rhythm, normal S1, S2 no murmurs or rubs Abdomen: soft, non-tender, nondistended, normal bowel sounds Back: no vertebral tenderness, no CVAT Extremities: no deformities, moves all extremities symmetrically Neuro: General: Awake, alert, oriented, normal speech Cranial nerves: cranial nerves intact Strength: Patient has asymmetric strength with weakness in the left upper and left lower extremity compared to the right Cerebellar: Left-sided poor wvrlaa-cw-juez-to-finger, rapid finger movement and heel to castro. Right side was normal. Psych: Pleasant, cooperative Medications Administered Generic Name Dose Route Start Last Admin Trade Name Freq PRN Reason Stop Dose Admin Aspirin 81 mg 08/27/24 09:00 08/27/24 08:49 Aspirin Enteric Coated 81 Mg Tablet.Dr PO 81 mg DAILY ROBBY Administration Atorvastatin Calcium 40 mg 08/27/24 09:00 08/27/24 08:49 Atorvastatin Calcium 40 Mg Tablet PO 40 mg DAILY ROBBY Administration Enoxaparin Sodium 40 mg 08/26/24 22:00 08/27/24 21:59 Enoxaparin Sodium 40 Mg/0.4 Ml Syringe SUBCUT 40 mg Q24H ROBBY Administration Insulin Human Lispro 0 unit 08/27/24 07:30 08/27/24 20:57 Insulin Lispro 100 Unit/Ml 3 Ml Vial SUBCUT Not Given QIDACHS [facility] Protocol Discontinued Medications Generic Name Dose Route Start Last Admin Trade Name Freq PRN Reason Stop Dose Admin Amlodipine Besylate 5 mg 08/27/24 20:09 08/27/24 20:55 Amlodipine Besylate 5 Mg Tablet PO 08/27/24 20:10 5 mg ONCE ONE Administration Protocol Aspirin 162 mg 08/26/24 19:12 08/26/24 19:36 Aspirin 81 Mg Tab.Chew PO 08/26/24 19:13 162 mg ONCE STA Administration Hydralazine HCl 10 mg 08/27/24 20:06 08/27/24 20:56 Hydralazine Hcl 20 Mg/Ml Vial IVPUSH 08/27/24 20:07 10 mg ONCE ONE Administration Protocol Lorazepam 2 mg 08/26/24 19:12 08/26/24 19:36 Lorazepam 2 Mg/Ml Vial IVPUSH 08/26/24 19:13 2 mg ONCE ONE Administration Nicotine 21 mg 08/26/24 19:16 08/26/24 19:40 Nicotine 21 Mg Patch.Td24 TRANSDERMA 08/26/24 19:17 Not Given ONCE ONE Medical Decision Making Medical Decision Making MDM Narrative: 44-year-old male with a history of depression, obesity, dyslipidemia, multinodular goiter, diabetes who presents emergency department for evaluation of URI symptoms followed by left-sided numbness/weakness times 5 days. Patient states that he was visiting his mother in [place], she was ill. He then developed URI like symptoms which included chills, rhinorrhea, sore throat and cough with negative outpatient COVID test. Patient does have numbness in his extremities with this is secondary to his diabetic neuropathy. Vital signs revealed an elevated blood pressure and a low heart rate. Physical examination is concerning for left upper and lower extremity weakness with cerebellar signs with poor izipde-fr-azlj-to-finger, rapid finger movement and heel to castro on the left with normal function on the right. Differential diagnosis: ?Includes but is not limited to cerebellar stroke, intracranial bleed, Course: 19:36 My interpretation patient's laboratory evaluation is as follows: CBC was normal. Glucose was elevated 130. LFTs were normal. COVID-19, influenza RSV and rapid strep were negative. MRI of the brain revealed a 1.3 cm abnormality within the right side of the yousif with no intracranial hemorrhage , no midline shift and no hydronephrosis. Radiologist felt that this was consistent with either acute infarct or focus of acute demyelination. I did discuss this finding with our covering neurologist, Dr. Britton and he recommended that the patient be admitted to the hospitalist service for stroke workup. Patient was feeling anxious after I told him the MRI results and he was given Ativan 2 mg IV, nicotine patch 21 mg and aspirin 162 mg orally. I did discuss the patient's presentation over tiger text with the covering hospitalist, and the patient will be admitted for further management. Admission/Observation Consideration of admission/observation: Escalation of care including admission/observation considered (Yes) Consult Healthcare Provider Management of the patient was discussed with: Loans Consultant (Neurologist, Dr. Britton) Lab Data MDM Lab Attestation statement: I reviewed the patient's lab results. 08/27/24 05:27 08/27/24 05:27 Labs: Lab Results 08/26/24 08/26/24 Range/Units 09:30 11:43 WBC 7.2 (4.8-10.8) X10*3/uL RBC 5.18 (4.60-5.80) X10*6/uL Hgb 14.6 (14.0-18.0) g/dl Hct 43.9 (42.0-52.0) % MCV 84.7 (80.0-98.0) fL MCH 28.2 (27.0-33.0) pg MCHC 33.3 (31.0-36.0) g/dl RDW 13.6 (11.0-16.0) % Plt Count 243 (160-400) X10*3/uL MPV 9.3 L (9.4-12.4) fL Immature Gran % (Auto) 0.1 (0.0-0.4) % Neut % (Auto) 68.1 (45-73) % Lymph % (Auto) 24.6 (20-40) % Sampson % (Auto) 6.4 (2-11) % Eos % (Auto) 0.4 (0-4) % Baso % (Auto) 0.4 (0-2) % Lymph # (Auto) 1.8 (1.2-4.9) X10*3/uL Sampson # (Auto) 0.5 (0.1-1.2) X10*3/uL Eos # (Auto) 0.0 (0.0-0.4) X10*3/uL Baso # (Auto) 0.0 (0.0-0.2) X10*3/uL Abs Immat Gran (auto) 0.01 (0.00-0.03) X10*3/uL Absolute Neuts (auto) 4.9 (2.0-8.3) x10*3/uL Absolute Nucleated RBC 0.000 (0.0-0.012) X10*3/uL Nucleated RBC % (auto) 0.0 (0.0-0.2) /100WBC PT 11.0 (10.9-12.4) SEC INR 0.9 (0.9-1.1) Sodium 140 (135-145) mmol/L Potassium 4.1 (3.3-5.1) mmol/L Chloride 110 H (96-108) mmol/L Carbon Dioxide 23 (22-29) mmol/L Anion Gap 11 L (12-20) BUN 15 (9-16) mg/dL Creatinine 0.70 (0.5-1.4) mg/dL Estim Creat Clear Calc 168.4 Estimated GFR > 60 Random Glucose 130 H (60-115) mg/dL Calcium 9.0 (8.4-10.2) mg/dL Total Bilirubin 0.3 (0.0-1.0) mg/dL AST 28 (5-37) U/L ALT 27 (0-40) U/L Alkaline Phosphatase 75 (39-117) U/L Total Protein 7.3 (6.5-8.0) g/dL Albumin 4.2 (3.5-5.0) g/dL Influenza Type A (PCR) NEGATIVE (Negative) Influenza Type B (PCR) NEGATIVE (Negative) RSV RNA Qual (PCR) NEGATIVE (Negative) SARS-CoV-2 RNA (RT-PCR) NEGATIVE (Negative) S. pyogenes GrpA CHIKIS Negative (Negative) Radiology Impression Discussion of test interpretation with radiology: I have reviewed the radiologist's reading. Radiologist Impression: MR Brain without gadolinium Comparison: None Findings: 1.3 cm focus of restricted diffusion within the right side of the yousif. This demonstrates hyperintensity on T2 weighted sequences. There are numerous T2 hyperintensities within the white matter including involvement of the periventricular white matter. No intracranial hemorrhage. No midline shift. No hydrocephalus. Vascular flow voids are intact. The orbits are normal. There is partial opacification of the mastoid air cells, left more pronounced than right. Paranasal sinuses are clear. No focal bone lesion. IMPRESSION: 1. 1.3 cm focus of restricted diffusion within the yousif may represent an acute infarct or focus of active demyelination. 2. Numerous T2 hyperintensities within the white matter with an appearance raising the possibility of a demyelinating process such as multiple sclerosis. 3. Inflammatory changes of the mastoid air cells. This document has been electronically signed by: Sobeida Cadena MD on 08/26/2024 17:49:59 Dictated By: Sobeida Cadena MD Chronic Conditions Patient?s care impacted by: Diabetes NIH Stroke Scale Internal: Initial- Upon Arrival (At the time of my initial evaluation) Level of Consciousness: Alert Level of Consciousness Questions: Answers both questions correctly Level of Consciousness Commands: Performs both tasks correctly Best Gaze: Normal Visual: No visual loss Facial Palsy: Normal Motor Arm (Right): No drift Motor Arm (Left): Drift Motor Leg (Right): No drift Motor Leg (Left): Drift Limb Ataxia: Present in one limb Sensory: Normal Best Language: No aphasia Dysarthia: Normal Extinction and Inattention: No abnormality Score: 3 Critical Care Time Critical Care Time Critical Care Time: Yes Total Critical Care Time: 35 Attestation: Critical Care: The patient was critically ill with a high probability of imminent or life threatening deterioration. I spent greater than 30 minutes of discontinuous time evaluating the patient,delivering critical care at the bedside, discussing and evaluating pertinent data with consultants. Critical care time does not include time spent performing separately billable procedures or teaching. Total time spent performing critical care was 35 minutes. Discharge Plan Discharge Clinical Impression: T2 hyperintense foci present in yousif on magnetic resonance imaging Stroke Qualifiers: Laterality of affected vessel: right Patient Disposition: Admitted As Inpatient
[2024-08-26 11:48] LABS: IDNOW Serial# 58CA691E; Strep A Nucleic Acid Negative (Negative)
--- NOTE | 2024-08-26 11:58 | PC.NURSE ---
pt reporting left sided numbness and weakens. With arms extended pt has weakness in left arm compared to right. no slurred speech or ficial droop. pt speaking full, clear sentences. Pt reports that over the past week sometimes he has felt unsteady on his feet. MRI form sent down and waiting for MRI.
[2024-08-26 12:27] LABS: Influenza A PCR NEGATIVE (Negative); Influenza B PCR NEGATIVE (Negative); Resp Syncy Virus RNA Qual PCR NEGATIVE (Negative); SARS COV2 PCR INHOUSE NEGATIVE (Negative)
[2024-08-26 13:20] VITALS: BP 150/88; PULSE 56; RESP 18; TEMP 36.8; O2SAT 96
--- NOTE | 2024-08-26 17:10 | PC.NURSE ---
cleared by Dr. Mcpherson to eat
[2024-08-26 19:35] VITALS: BP 150/60; PULSE 67; RESP 18; TEMP 37.1; O2SAT 97
[2024-08-26] MEDS: Aspirin 81 MG TAB.CHEW 162 MG PO (19:36)
[2024-08-26] MEDS: LORazepam 2 MG/ML VIAL IVPUSH (19:36)
--- NOTE | 2024-08-26 20:52 | P.HPHOSP_ITS ---
History of Present Illness Date of Service: 08/26/24 Attending physician on admission: Bessie Pelaez Chief Complaint: sore throat, weakness Patient is a 44-year-old male with a past medical history significant for depression, anxiety, obesity, hyperlipidemia, multinodular goiter, type 2 diabetes on insulin, and diabetic neuropathy, presented to the ED due to upper respiratory symptoms including chills, sore throat, rhinorrhea and cough with associated left-sided numbness in the upper and lower extremities with past 4-5 days. He reports in the beginning of his weakness symptoms he had left-sided neck pain which has resolved. The patient reports a did recently come back from [place]. He does not have any history of any blood clots or stroke. His father a stroke in his 60s and he denies any family history of MS. He reports he recently lost ?100 lb in the past month due to significant dietary changes and has not needed to use his insulin. Reports his last insulin use was 3 days ago, he has been checking his blood sugars and has not needed it. Review of Systems 2 Constitutional: Constitutional: Denies body ache(s), Reports chills, Denies fatigue, Denies fever(s) and Denies headache(s) Eyes: Eyes: Denies change in vision, Denies loss of vision and Denies photophobia ENT: Denies headache(s), Reports nasal congestion, Reports nasal discharge and Reports sore throat Cardiovascular: Cardiovascular: Denies chest pain, Denies rapid heart rate, Denies leg edema, Denies lightheadedness and Denies dyspnea Respiratory: Respiratory: Reports cough, Denies dyspnea and Denies wheezing Gastrointestinal: Gastrointestinal: Denies constipation, Denies diarrhea, Denies nausea and Denies vomiting Genitourinary: Genitourinary: Denies dysuria, Denies urinary frequency and Denies urinary urgency Musculoskeletal: Comments: Weakness left upper and lower extremity Integumentary/Breasts: Skin/Breast: Denies rash Neurologic: Denies confusion, Denies headache(s), Denies loss of vision and Denies seizure-like activity Psychiatric: Psychiatric: Denies confusion Endocrine: Endocrine: Denies fatigue Hematologic/Lymphatic: Hematologic/Lymphatic: Denies easy bleeding and Denies easy bruising Allergic/Immunologic: Allergic/Immunologic: Denies wheezing [facility] Medical History Severe major depression without psychotic features Hand numbness Vitamin D deficiency Obesity (BMI 30-39.9) Dyslipidemia Non-toxic multinodular goiter Diabetic retinopathy associated with type 1 diabetes mellitus Diabetic polyneuropathy associated with type 1 diabetes mellitus Diabetes type 1, controlled Functional capacity: independent ambulation Family History Father Stroke Mother No problems noted. 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 Hx of circumcision Social History Housing: House Alcohol intake: current Alcohol intake frequency: holidays/special occasions only Alcohol type: beer Patient Tobacco Use Status: Current everyday Tobacco user Tobacco use type: Cigarette Cigarettes Per Day: 8 Smoked in Last 30 Days: Yes e-Cigarette/Vaping Use: Never Used Second Hand Smoke Exposure: No Use of substances other than those prescribed or required for medical reasons: No Advance Directives: No Advance Directives Information Provided: Yes Do you have a plan to hurt others: No Plan service: No Current occupational status: employed Current occupational exposures/hazards: No Cognitive needs: No Hearing needs: No Vision needs: No Narrative: Source about 10 cigarettes per day, uses marijuana daily, no alcohol Meds Allergies Allergy/AdvReac Type Severity Reaction Status Date / Time No Known Allergies Allergy Verified 08/26/24 09:15 [No Known Allergies*] Home Medications ?Medication ?Instructions ?Recorded ?Confirmed ?Last Taken ?Type ibuprofen 200 mg tablet 800 mg PO DAILY PRN Fever Or Pain 08/26/24 08/26/24 Unknown History insulin glargine 100 unit/mL (3 30 unit subcut BID 08/26/24 08/26/24 08/25/24 History mL) subcutaneous pen (Lantus Solostar U-100 Insulin) magnesium oxide 400 mg PO DAILY 08/26/24 08/26/24 08/25/24 History Physical Exam 2 Vital Signs and Narrative: Vital Signs: Last Vital Signs Temp 98.7 F 08/26/24 19:35 Pulse 67 08/26/24 19:35 Resp 18 08/26/24 19:35 BP 150/60 H 08/26/24 19:35 Pulse Ox 97 08/26/24 19:35 O2 Del Method Room Air 08/26/24 19:35 BMI result Body Mass Index 35.3 General: AOx3, no acute distress Resp: CTA bilaterally CVS: S1, S2, RRR GI: +BS, NT, no distention Skin: Warm, dry Neuro: Cranial nerves II-XII grossly intact bilaterally. Motor grossly intact bilaterally. LUE and LLE 2-3/5 strength vs RUE and RLL 5/5. sensation intact. poor finger to nose coordination. no pronator drift. poor rapid finger response. Extremities: No LE edema Psych: Appropriate affect Const: General: No confusion Orientation/consciousness: No confusion Eyes: Direct Ophthalmoscopy: No photophobia Neuro: General: No confusion Results Labs 08/26/24 09:30 08/26/24 09:30 Labs: Laboratory Results - last 24 hr 08/26/24 08/26/24 09:30 11:43 MCV 84.7 MCH 28.2 MCHC 33.3 RDW 13.6 Plt Count 243 MPV 9.3 L Immature Gran % (Auto) 0.1 Neut % (Auto) 68.1 Lymph % (Auto) 24.6 [place] % (Auto) 6.4 Eos % (Auto) 0.4 Baso % (Auto) 0.4 Lymph # (Auto) 1.8 [place] # (Auto) 0.5 Eos # (Auto) 0.0 Baso # (Auto) 0.0 Abs Immat Gran (auto) 0.01 Absolute Neuts (auto) 4.9 Absolute Nucleated RBC 0.000 Nucleated RBC % (auto) 0.0 PT 11.0 INR 0.9 Anion Gap 11 L Estim Creat Clear Calc 168.4 Estimated GFR > 60 Random Glucose 130 H Calcium 9.0 Total Bilirubin 0.3 AST 28 ALT 27 Alkaline Phosphatase 75 Total Protein 7.3 Albumin 4.2 Influenza Type A (PCR) NEGATIVE Influenza Type B (PCR) NEGATIVE RSV RNA Qual (PCR) NEGATIVE SARS-CoV-2 RNA (RT-PCR) NEGATIVE S. pyogenes GrpA CHIKIS Negative Assessment and Plan (1) Stroke: Qualifiers: Laterality of affected vessel: right Status: Acute (2) URI (upper respiratory infection): Status: Acute (3) Obesity (BMI 35.0-39.9 without comorbidity): Status: Acute (4) Tobacco dependence: Status: Acute Plan Patient is a 44-year-old male with a past medical history significant for depression, anxiety, obesity, hyperlipidemia, multinodular goiter, type 2 diabetes on insulin, and diabetic neuropathy, presented to the ED due to upper respiratory symptoms including chills, sore throat, rhinorrhea and cough with associated left-sided numbness in the upper and lower extremities with past 4-5 days. CVA vs MS, likely CVA, continued LUE and LLE weakness - new LUE and LLE weakness x4-5 days, not a candidate for TNK - labs without leukocytosis or abnormalities - MRI brain with 1.3 cm focus of restricted diffusion with in the yousif, may represent an acute infarct or focus of active demyelination. Numerous T2 hyperintensities within the white matter with an appearance raising the possibility of demyelinating process such as MS - neurology recommended admission with further w/u - BP mildly elevated, continue to monitor - given ASA in ED, continue 81mg daily - continue atorvastatin 80mg QHS - add lipid panel - monitor on tele - echocardiogram - carotid US - PT/OT URI - supportive care - COVID/flu/RSV negative, strep negative - CBC and BMP normal - check CXR to r/o pneumonia - monitor CBC and BMP tobacco use - nicotine patch and gum per pt request - smoking cessation discussed obesity - BMI 35.3 - pt reported weight loss, does not sound to be accurate amount - encourage healthy weight loss through diet and exercise T2DM - monitor POC - sliding scale as needed - continue gabapentin for neuropathy Full code VTE prophylaxis: Lovenox Patient with new stroke complicated by upper respiratory infection, requiring admission for at least 2 midnights stay for further workup and monitoring. Quality Stroke Does the patient have a stroke diagnosis?: Yes Reason for No Anti-thrombotic by Day Two: Contraindicated VTE Prior VTE?: No VTE Risk Level:: Medical - moderate - high VTE Device Contraindication: Treatment Not Indicated VTE Drug Contraindication: N/A - Med Ordered
--- NOTE | 2024-08-26 21:32 | PHA.MEDREC ---
Pharmacy Consult ? Medication Reconciliation Pharmacy has completed the medication reconciliation. Spoke to patient to confirm med list. Patient states he only takes Lantus 30 units bid and some OTC tablets. Mag Oxide 400 mg and Motrin.
--- NOTE | 2024-08-26 21:34 | PHA.MEDREC ---
Addendum entered by Rosa Corrales valentin 08/26/24 21:42: Reviewed by Pharmacist Original Note: Pharmacy Consult ? Medication Reconciliation Pharmacy has completed the medication reconciliation. Spoke to patient through spanish interpreter/translator service ( Jt) to confirm med list. Patient states he only takes Lantus 30 units bid and some OTC tablets. Mag Oxide 400 mg and Motrin.
[2024-08-26] MEDS: Enoxaparin Sodium 40 MG/0.4 ML SYRINGE SUBCUT (22:53)
[2024-08-26 23:30] VITALS: BP 112/47; PULSE 58; RESP 20; TEMP 36.7; O2SAT 98
[2024-08-27] VITALS (7 sets, daily range): BP systolic 121–183; BP diastolic 65–90; PULSE 57–62; RESP 12–16; TEMP 36.6–36.9; O2SAT 95–98
--- NOTE | 2024-08-27 05:07 | PC.NURSE ---
pt seen by provider, admission for further evaluation, pt is a&o, pt oob to bathroom with a steady gait. pt medicated per mar, awaiting admission bed.
[2024-08-27 05:34] LABS: Basophils Percent Auto 0.5 % (0-2); Eosinophils Absolute Auto 0.1 X10*3/uL (0.0-0.4); Eosinophils Percent Auto 1.1 % (0-4); Hematocrit 43.8 % (42.0-52.0); Hemoglobin 14.3 g/dl (14.0-18.0); Imm Gran Abs Auto 0.02 X10*3/uL (0.00-0.03); Imm Gran Pct Auto 0.3 % (0.0-0.4); Lymphocytes Percent Auto 30.5 % (20-40); MANUAL DIFF FLAG NO; Mean Corpuscular HGB Conc 32.6 g/dl (31.0-36.0); Mean Corpuscular Hemoglobin 28.1 pg (27.0-33.0); Mean Corpuscular Volume 86.2 fL (80.0-98.0); Mean Platelet Volume 9.1 fL (9.4-12.4); Monocytes Absolute Auto 0.6 X10*3/uL (0.1-1.2); Monocytes Percent Auto 8.6 % (2-11); Neutrophils Absolute Auto 3.8 x10*3/uL (2.0-8.3); Platelet Count 268 X10*3/uL (160-400); Red Blood Count 5.08 X10*6/uL (4.60-5.80); Red Cell Distribution Width 13.6 % (11.0-16.0); White Blood Count 6.5 X10*3/uL (4.8-10.8)
[2024-08-27 05:42] LABS: Appearance Urine Clear; Color Urine Yellow; Glucose Urine UA Negative (Negative); Leukocyte Esterase Urine Small (1+) (Negative); Nitrite Urine Negative (Negative); PH 5.5 (5.0-9.0); UMIC TRIGGER UACC YES; Urine Blood Negative (Negative); Urine Ketones Negative (Negative); Urine Protein Negative (Neg-Trace)
[2024-08-27 05:49] LABS: Bacteria Urine None Seen (None Seen); Hyaline Casts Urine 0-2 /LPF (0-2); RBC Urine 0-2 /HPF (0-2); Squamous Epithelial Cell Urine 0-2 /HPF (0-2); UACC Culture Trigger YES
[2024-08-27 05:49] LABS: Anion Gap 11 (12-20); Blood Urea Nitrogen 15 mg/dL (9-16); Calcium 9.4 mg/dL (8.4-10.2); Carbon Dioxide 25 mmol/L (22-29); Chloride 111 mmol/L (96-108); Cholesterol 170 mg/dL (<200); Creatinine Clr Calc Pharmacy 153.1; Estimated Glomerular Filt Rate > 60; Glucose Random 112 mg/dL (60-115); HDL Cholesterol 67 mg/dL (>40); LDL Cholesterol Calculated 87 mg/dL (<100); Potassium 4.8 mmol/L (3.3-5.1); Sodium 142 mmol/L (135-145); Triglycerides 80 mg/dL (<150)
--- NOTE | 2024-08-27 05:54 | PC.NURSE ---
pt, has some home medications at bedside, motrin and lantus. pt does not want this meds to be taken away, education provided, not to take his home meds while in hospitals and states that his is coming this morning and she will take the meds home.
[2024-08-27 06:29] LABS: Estimated Average Glucose 134 mg/dL; Hemoglobin A1C 163.7533 umol/L; Hemoglobin A1c % 6.3 % (<6.0); Total Hemoglobin (HGBA1C) 3626.4181 umol/L
--- NOTE | 2024-08-27 07:00 | CA_ITS ---
Transthoracic Echocardiogram Patient (Last, First, Middle): Larry St, Gender: Male Date of : 1980 Age: 44 Procedure Date: 08/27/2024 Procedure Type: Transthoracic Echocardiogram Location: ER Height: 177.8 cm Weight: 111.59 kg BSA: 2.28 m2 Heart Rate: 48 bpm BP: 121 / 70 mmHg Car Sales Representative: BRIGETTE Referring MD: Bessie Pelaez MD Apartment Leasing Consultant: Miguel Angel Benitez MD Symptoms: CVA Study Quality: Adequate ECG Rhythm: Bradycardia Conclusions: - 1. Normal LV ejection fraction of 60 65% with moderate LVH with pseudonormal filling pattern 2. Mildly dilated left atrium 3. Cardiac valvular Dopplers within normal limits 4. No gross pericardial effusion Findings Left Ventricle Normal left ventricular size and systolic function. There is moderately increased left ventricular wall thickness. The visually estimated ejection fraction is between 60-65%. Spectral Doppler is indicative of a pseudonormal filling pattern. E/E prime ratio is between 8 and 15 consistent with indeterminate filling pressures. Right Ventricle Mildly increased right ventricular cavity size. There is normal right ventricular systolic function. Atria The left atrium is mildly dilated. There is no evidence of interatrial shunt by color Doppler and contrast. The right atrium is likely dilated. Aortic Valve Normal aortic valve structure and function. There is no aortic valve stenosis. There is no aortic valve regurgitation. Mitral Valve Normal mitral valve structure and function. There is trace mitral valve regurgitation. There is no mitral valve stenosis. Pulmonic Valve The pulmonic valve is likely normal. Tricuspid Valve Likely normal tricuspid valve structure and function. Tricuspid regurgitation envelope is inadequate for calculation of right ventricular systolic pressure. Normal right atrial pressure. Great Vessels All visible segments of the aorta are normal in size. The pulmonary artery was not well visualized. Venous The inferior vena cava is normal in size and collapses greater than 50% with inspiration. Pericardium/Pleural There is no evidence of pericardial effusion. Prior Study Comparison No prior study available for comparison. Recommendations, Care & Conclusions Consider a BEE if clinically appropriate. Measurements 2D Linear Measurements IVSd: 1.40 0.6-0.9/0.6-1.0 cm LVIDd: 4.90 3.9-5.3/4.2-5.9 cm LVIDd Index: 2.15 2.4-3.2/2.2-3.1 cm/m2 LVIDs: 3.50 2.0-3.6 cm LVPWd: 1.62 0.7-1.1 cm LA Diam: 4.10 2.7-3.8/3.0-4.0 cm LAIDs Index: 1.80 1.5-2.3 cm/m2 LV Mass: 394.31 67-162/88-224 g LV Mass Index: 172.94 43-95/49-115 g/m2 LVOT Diam: 2.40 3.0+(-)1.3 cm 2D Systolic Function EF 4C: 63.50 >55% EF 2C: 66.20 >55% EF BiP: 65.20 >55% Mitral Valve MV Pk E: 1.00 MV PK A: 0.60 MV Decel Time: 161.00 E/A: 1.70 E'Lateral: 8.59 E'Medial: 5.98 E/E' Med: 16.70 E/E' Lat: 11.60 PHT: 47.00 MVA PHT: 4.68 Decel Toole: 6.19 Aortic Valve AoV Pk Fredi: 1.46 AoV Mn Fredi: 0.94 AoV VTI: 0.33 AoV Pk Grad: 9.00 Aov Mn Grad: 4.00 JANETTE Cont.VTI: 3.17 LVOT LVOT Pk Fredi: 0.98 LVOT Mn Fredi: 0.60 LVOT VTI: 0.23 LVOT Pk Grad: 4.00 LVOT Mn Grad: 2.00 LVOT Diam: 2.40 LVOT Area: 4.52 Diastolic Function MV Pk E: 1.00 MV Pk A: 0.60 E/A: 1.70 E'Medial: 5.98 E/E' Med: 16.70 E' Laterial: 8.59 E/E' Lat: 11.60 Right Ventricle TAPSE (mm): 27.20 TVS' Fredi: 13.50 Tricuspid Valve RA Press: 3.00 Great Vessels Aorta Sinus of Valsalva: 3.37 2.0-3.5 cm Ao Asc: 3.30 2.1-3.4 cm Ao Arch: 3.20 Updated in Other Vendor System with Status of Final Miguel Angel Benitez MD electronically signed on 08/27/2024 11:58:04 AM with status of Final
[2024-08-27 07:51] LABS: Glucose, Whole Blood 110 mg/dL (60-115)
[2024-08-27] MEDS: Atorvastatin Calcium 40 MG TABLET PO (08:49)
[2024-08-27] MEDS: Aspirin Enteric Coated 81 MG TABLET.DR PO (08:49)
--- NOTE | 2024-08-27 09:42 | MHC.CM.PN ---
Pt lives with his , he is functionally independent, no home health services. For DME, he has diabetic supplies. HCP discussed, pt. declined to complete one. PCP confirmed: Elly Anne. to transport home at DC. DCP: home, self care. CM to follow for DC needs.
--- NOTE | 2024-08-27 10:37 | P.PNIM_ITS ---
Subjective Subjective Date of Service: 08/27/24 Interval History: still feels heavy on left side Physical Exam 2 Vital Signs: Vital Signs: Last Vital Signs Temp 97.9 F 08/27/24 05:10 Pulse 60 08/27/24 08:42 Resp 16 08/27/24 05:10 BP 121/70 08/27/24 08:42 Pulse Ox 97 08/27/24 08:42 O2 Del Method Room Air 08/27/24 05:10 BMI result Body Mass Index 35.3 General: AO X 3, no acute distress Resp: CTA bilateral, no accessory muscles used CVS: S1,S2,RRR GI: soft, non tender, non distended Neuro: left mild weakness Psych: appropriate affect, appropriate insight Objective Data Active Medications Acetaminophen (Acetaminophen 325 Mg Tablet) 650 mg PO Q6H PRN PRN Reason: Pain, Mild 1-3,fever,headache Aspirin (Aspirin Enteric Coated 81 Mg Tablet.) 81 mg PO DAILY [facility] Last Admin: 08/27/24 08:49 Dose: 81 mg Documented By: MARY Atorvastatin Calcium (Atorvastatin Calcium 40 Mg Tablet) 40 mg PO DAILY [facility] Last Admin: 08/27/24 08:49 Dose: 40 mg Documented By: MARY Calcium Carbonate (Calcium Carbonate 750 Mg Tab.Chew) 750 mg PO Q4H PRN PRN Reason: Heartburn Enoxaparin Sodium (Enoxaparin Sodium 40 Mg/0.4 Ml Syringe) 40 mg SUBCUT Q24H [facility] Last Admin: 08/26/24 22:53 Dose: 40 mg Documented By: PRIMO Glucose (Glucose Gel 15 Gm Gel..Gram.) 15 gm PO Q15M PRN; Protocol PRN Reason: per Hypoglycemia Standing Ord. Dextrose (D10) 250 mls @ 750 mls/hr IV Q15M PRN; Protocol PRN Reason: per Hypoglycemia Standing Ord. Insulin Human Lispro (Insulin Lispro 100 Unit/Ml 3 Ml Vial) 0 unit SUBCUT QIDACHS [facility]; Protocol Last Admin: 08/27/24 07:50 Dose: Not Given Documented By: MARY Non-Admin Reason: No Insulin Coverage Magnesium Hydroxide (Milk Of Magnesia 30 Ml Oral.Susp) 30 ml PO DAILY PRN PRN Reason: Constipation Melatonin (Melatonin 3 Mg Tablet) 6 mg PO BEDTIME PRN PRN Reason: Insomnia Nicotine Polacrilex (Nicotine Polacrilex 2 Mg Gum) 2 mg BUCCAL Q2H PRN PRN Reason: Nicotine Cravings Ondansetron HCl (Ondansetron Hcl 4 Mg/2 Ml Vial) 4 mg IVPUSH Q8H PRN PRN Reason: Nausea and Vomiting Labs 08/27/24 05:27 08/27/24 05:27 Labs: Laboratory Results - last 24 hr 08/26/24 08/26/24 08/27/24 11:43 21:38 05:27 MCV 86.2 MCH 28.1 MCHC 32.6 RDW 13.6 Plt Count 268 MPV 9.1 L Immature Gran % (Auto) 0.3 Neut % (Auto) 59.0 Lymph % (Auto) 30.5 [place] % (Auto) 8.6 Eos % (Auto) 1.1 Baso % (Auto) 0.5 Lymph # (Auto) 2.0 [place] # (Auto) 0.6 Eos # (Auto) 0.1 Baso # (Auto) 0.0 Abs Immat Gran (auto) 0.02 Absolute Neuts (auto) 3.8 Absolute Nucleated RBC 0.000 Nucleated RBC % (auto) 0.0 Anion Gap 11 L Estim Creat Clear Calc 153.1 Estimated GFR > 60 POC Glucose Random Glucose 112 Estimat Average Glucose 134 Hemoglobin A1c % 6.3 H Calcium 9.4 Triglycerides 80 Cholesterol 170 LDL Cholesterol, Calc 87 HDL Cholesterol 67 Urine Color Urine Appearance Urine pH Ur Specific [place] Urine Protein Urine Glucose (UA) Urine Ketones Urine Blood Urine Nitrite Ur Leukocyte Esterase Urine RBC Urine WBC Ur Squamous Epith Cells Urine Bacteria Hyaline Casts Influenza Type A (PCR) NEGATIVE Influenza Type B (PCR) NEGATIVE RSV RNA Qual (PCR) NEGATIVE SARS-CoV-2 RNA (RT-PCR) NEGATIVE S. pyogenes GrpA CHIKIS Negative 08/27/24 08/27/24 05:36 07:46 MCV MCH MCHC RDW Plt Count MPV Immature Gran % (Auto) Neut % (Auto) Lymph % (Auto) [place] % (Auto) Eos % (Auto) Baso % (Auto) Lymph # (Auto) [place] # (Auto) Eos # (Auto) Baso # (Auto) Abs Immat Gran (auto) Absolute Neuts (auto) Absolute Nucleated RBC Nucleated RBC % (auto) Anion Gap Estim Creat Clear Calc Estimated GFR POC Glucose 110 Random Glucose Estimat Average Glucose Hemoglobin A1c % Calcium Triglycerides Cholesterol LDL Cholesterol, Calc HDL Cholesterol Urine Color Yellow Urine Appearance Clear Urine pH 5.5 Ur Specific [place] 1.020 Urine Protein Negative Urine Glucose (UA) Negative Urine Ketones Negative Urine Blood Negative Urine Nitrite Negative Ur Leukocyte Esterase Small (1+) H Urine RBC 0-2 Urine WBC 6-10 H Ur Squamous Epith Cells 0-2 Urine Bacteria None Seen Hyaline Casts 0-2 Influenza Type A (PCR) Influenza Type B (PCR) RSV RNA Qual (PCR) SARS-CoV-2 RNA (RT-PCR) S. pyogenes GrpA CHIKIS Assessment and Plan (1) Obesity (BMI 30-39.9): Status: Acute Plan 44M PMH depression, anxiety, obesity, hyperlipidemia, diabetes, presented with upper respiratory tract infection symptoms and left sided weakness Left-sided weakness CVA versus MS Follow up Neurology Continue aspirin statin, follow up echo and carotids PT OT Obesity Weight loss recommended Diabetes Continue insulin DVT prophylaxis with Lovenox Full Code reason for continued hospitalization: Working up left-sided weakness Quality Stroke Does the patient have a stroke diagnosis?: Yes Reason for No Anti-thrombotic by Day Two: Contraindicated VTE Prior VTE?: No VTE Risk Level:: Medical - moderate - high VTE Device Contraindication: Treatment Not Indicated VTE Drug Contraindication: N/A - Med Ordered
[2024-08-27 11:44] LABS: Glucose, Whole Blood 102 mg/dL (60-115)
[2024-08-27 16:58] LABS: Glucose, Whole Blood 125 mg/dL (60-115)
--- NOTE | 2024-08-27 17:53 | PM.NEUROCN ---
History of Present Illness Data of Consult Service Date: 08/27/24 Primary Care Provider: Elly Anne MD HPI This is a 44-year-old male with a past medical history of depression, anxiety, obesity, hyperlipidemia, multinodular goiter, type 2 diabetes on insulin, and diabetic neuropathy, presented to the ED due to upper respiratory symptoms including chills, sore throat, rhinorrhea and cough with associated left-sided numbness in the upper and lower extremities within past 4-5 days. At the start of his weakness symptoms he had left-sided neck pain which has resolved. The patient reports that he recently come back from [place]. He does not have any history of any blood clots or stroke. His father a stroke in his 60s and he denies any family history of MS. He reports he recently lost ?100 lb in the past month due to significant dietary changes and has not needed to use his insulin. Reports his last insulin use was 3 days ago, he has been checking his blood sugars and has not needed it. [facility] Past Medical History Medical History Severe major depression without psychotic features Hand numbness Vitamin D deficiency Obesity (BMI 30-39.9) Dyslipidemia Non-toxic multinodular goiter Diabetic retinopathy associated with type 1 diabetes mellitus Diabetic polyneuropathy associated with type 1 diabetes mellitus Diabetes type 1, controlled Family History Family History Father Stroke Mother No problems noted. 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 Hx of circumcision Social History Social History Household Members: Spouse Housing: House Do you presently have visiting nurse or other home services: No Alcohol intake: current Alcohol intake frequency: holidays/special occasions only Alcohol type: beer Patient Tobacco Use Status: Current everyday Tobacco user Tobacco use type: Cigarette Cigarettes Per Day: 10 Smoked in Last 30 Days: Yes e-Cigarette/Vaping Use: Currently Using Patient Interested in Nicotine Replacement: No Second Hand Smoke Exposure: No Use of substances other than those prescribed or required for medical reasons: No Substance Use Type: Marijuana Substance Use Frequency: Daily Last Used Substance: Days (ago) Last Used Substance Other:: 08/26/24 Currently Displaying Signs/Symptoms of Drug Intoxication Withdrawal: No Have you been hit, kicked, punched, or otherwise hurt by someone within the past year? If so, by whom?: No Do you feel safe in your current relationship?: Yes Is there a partner from a previous relationship who is making you feel unsafe now?: No Are you made to feel afraid or neglected: No Advance Directives: No Advance Directives Information Provided: Yes Do you have a plan to hurt others: No Plan Recently lost weight without trying: No How much weight loss: 34pounds or more service: No Current occupational status: employed Current occupational exposures/hazards: No Cognitive needs: No Hearing needs: No Vision needs: No Meds Allergies Allergy/AdvReac Type Severity Reaction Status Date / Time No Known Allergies Allergy Verified 08/26/24 09:15 [No Known Allergies*] Active Medications: Current Medications Acetaminophen (Acetaminophen 325 Mg Tablet) 650 mg PO Q6H PRN PRN Reason: Pain, Mild 1-3,fever,headache Aspirin (Aspirin Enteric Coated 81 Mg Tablet.) 81 mg PO DAILY [facility] Last Admin: 08/27/24 08:49 Dose: 81 mg Atorvastatin Calcium (Atorvastatin Calcium 40 Mg Tablet) 40 mg PO DAILY [facility] Last Admin: 08/27/24 08:49 Dose: 40 mg Calcium Carbonate (Calcium Carbonate 750 Mg Tab.Chew) 750 mg PO Q4H PRN PRN Reason: Heartburn Enoxaparin Sodium (Enoxaparin Sodium 40 Mg/0.4 Ml Syringe) 40 mg SUBCUT Q24H [facility] Last Admin: 08/26/24 22:53 Dose: 40 mg Glucose (Glucose Gel 15 Gm Gel..Gram.) 15 gm PO Q15M PRN; Protocol PRN Reason: per Hypoglycemia Standing Ord. Dextrose (D10) 250 mls @ 750 mls/hr IV Q15M PRN; Protocol PRN Reason: per Hypoglycemia Standing Ord. Insulin Human Lispro (Insulin Lispro 100 Unit/Ml 3 Ml Vial) 0 unit SUBCUT QIDACHS [facility]; Protocol Last Admin: 08/27/24 17:49 Dose: Not Given Magnesium Hydroxide (Milk Of Magnesia 30 Ml Oral.Susp) 30 ml PO DAILY PRN PRN Reason: Constipation Melatonin (Melatonin 3 Mg Tablet) 6 mg PO BEDTIME PRN PRN Reason: Insomnia Nicotine Polacrilex (Nicotine Polacrilex 2 Mg Gum) 2 mg BUCCAL Q2H PRN PRN Reason: Nicotine Cravings Ondansetron HCl (Ondansetron Hcl 4 Mg/2 Ml Vial) 4 mg IVPUSH Q8H PRN PRN Reason: Nausea and Vomiting Home Medications ?Medication ?Instructions ?Recorded ?Confirmed ?Last Taken ?Type ibuprofen 200 mg tablet 800 mg PO DAILY PRN Fever Or Pain 08/26/24 08/26/24 Unknown History insulin glargine 100 unit/mL (3 30 unit subcut BID 08/26/24 08/26/24 08/25/24 History mL) subcutaneous pen (Lantus Solostar U-100 Insulin) magnesium oxide 400 mg PO DAILY 08/26/24 08/26/24 08/25/24 History Physical Exam Vital Signs: Vital Signs: Last Vital Signs Temp 98.4 F 08/27/24 17:47 Pulse 60 08/27/24 17:47 Resp 16 08/27/24 17:47 BP 163/65 H 08/27/24 17:47 Pulse Ox 95 08/27/24 17:47 O2 Del Method Room Air 08/27/24 17:47 BMI result Body Mass Index 35.3 Neuro: Other: Non focal Results Labs 08/27/24 05:27 08/27/24 05:27 Labs: Short CBC 08/27/24 Range/Units 05:27 WBC 6.5 (4.8-10.8) X10*3/uL Hgb 14.3 (14.0-18.0) g/dl Hct 43.8 (42.0-52.0) % Plt Count 268 (160-400) X10*3/uL BMP 08/27/24 05:27 Sodium 142 Potassium 4.8 Chloride 111 H Carbon Dioxide 25 BUN 15 Creatinine 0.77 Calcium 9.4 Urine 08/27/24 Range/Units 05:36 Urine Color Yellow Urine Appearance Clear Urine pH 5.5 (5.0-9.0) Ur Specific [place] 1.020 (1.005-1.025) Urine Protein Negative (Neg-Trace) mg/dL Urine Glucose (UA) Negative (Negative) mg/dL Assessment and Plan (1) Stroke: Qualifiers: Laterality of affected vessel: right Status: Acute Multiple stroke risk factors. Probable small vessel disease with recent left pontine infarct and diffuse white matter changes in both hemispheres. Less likely from MS Recommendations: ASA 81mg a day, Atorvastatin 80 mg. Control BP and Sugar. Out patient work up for MS to includes Evoked potentials and spinal fluid analysis (2) T2 hyperintense foci present in yousif on magnetic resonance imaging: Status: Acute As described above Procedures Date of Service Date of Service: 08/27/24
--- NOTE | 2024-08-27 19:40 | PC.NURSE ---
assumed care of patient at this time, patient resting comfortably with family at bedside, no complaints at this time.
[2024-08-27] MEDS: amLODIPine Besylate 5 MG TABLET PO (20:55)
[2024-08-27 20:56] LABS: Glucose, Whole Blood 109 mg/dL (60-115)
[2024-08-27] MEDS: hydrALAZINE HCl 20 MG/ML VIAL 10 MG IVPUSH (20:56)
[2024-08-27] MEDS: Enoxaparin Sodium 40 MG/0.4 ML SYRINGE SUBCUT (21:59)
[2024-08-28 03:50] VITALS: BP 145/64; PULSE 63; RESP 16; TEMP 36.7; O2SAT 99
[2024-08-28 06:28] VITALS: BP 174/83; PULSE 56; RESP 16; TEMP 36.6; O2SAT 99
[2024-08-28 07:37] VITALS: BP 169/78; PULSE 70; RESP 20; TEMP 36.8; O2SAT 100
[2024-08-28 07:43] LABS: Glucose, Whole Blood 138 mg/dL (60-115)
--- NOTE | 2024-08-28 08:17 | P.DS_ITS ---
DS: Providers Provider Date of Service: 08/28/24 Date of admission: 08/26/24 20:34 Date of discharge: 08/28/24 Primary care physician: Elly Anne MD Consults: 08/26/24 20:34 Consult to Neurology Routine Consulting Provider: Yadi Britton Reason for consultation: CVA DS: Diagnosis Discharge Diagnosis (1) Stroke: Status: Acute (2) T2 hyperintense foci present in yousif on magnetic resonance imaging: Status: Acute DS: Summary Hospital Course Hospital Course: from initial hpi: 44-year-old male with a past medical history significant for depression, anxiety, obesity, hyperlipidemia, multinodular goiter, type 2 diabetes on insulin, and diabetic neuropathy, presented to the ED due to upper respiratory symptoms including chills, sore throat, rhinorrhea and cough with associated left-sided numbness in the upper and lower extremities with past 4-5 days. He reports in the beginning of his weakness symptoms he had left-sided neck pain which has resolved. The patient reports a did recently come back from [place]. He does not have any history of any blood clots or stroke. His father a stroke in his 60s and he denies any family history of MS. He reports he recently lost ?100 lb in the past month due to significant dietary changes and has not needed to use his insulin. Reports his last insulin use was 3 days ago, he has been checking his blood sugars and has not needed it. hospital course: Patient was admitted for left-sided weakness. MRI was positive for possible acute stroke versus demyelinating disease. Was seen by Neurology recommended treating with aspirin and statin and following up outpatient for lumbar puncture and further testing to rule out MS. Was seen by PT and OT and does not need further physical therapy at this time. Echo was done which showed 60-65% EF with moderate LVH and pseudonormal filling pattern. Carotids were negative. For obesity weight loss recommended for diabetes was continued on insulin. For hypertension was started on amlodipine 5 mg daily. Patient is back to baseline and will be discharged home. Time Attestation Discharge Coordination Time (in mins): 37 Quality: Safe Use of Opioids Does Pt have an Active Cancer Diagnosis on the Problem List?: No Quality: Stroke Does the patient have a stroke diagnosis?: Yes Reason for No Anti-thrombotic at DC: N/A - Med Ordered Reason for No Anticoagulant at DC: Drug treatment not indicated Reason Not Initiating IV-Tpa: Drug treatment not indicated Reason for No Anti-thrombotic by Day Two: N/A - Med Ordered Reason for No Statin at DC: N/A - Med Ordered Physical Exam Vital Signs: Vital Signs: Last Vital Signs Temp 98.3 F 08/28/24 07:37 Pulse 70 08/28/24 07:37 Resp 20 08/28/24 07:37 BP 169/78 H 08/28/24 07:37 Pulse Ox 100 08/28/24 07:37 O2 Del Method Room Air 08/28/24 07:37 BMI result Body Mass Index 35.3 General: AO X 3, no acute distress Resp: CTA bilateral, no accessory muscles used CVS: S1,S2,RRR GI: soft, non tender, non distended Neuro: motor grossly intact, alert Psych: appropriate affect, appropriate insight DS: Data Data Completed and Pending Labs on day of discharge: Laboratory Results - last 24 hr 08/27/24 08/27/24 08/27/24 11:34 16:44 20:52 POC Glucose 102 125 H 109 08/28/24 07:39 POC Glucose 138 H Discharge Plan Discharge Anticipated Discharge Date/Time: 08/28/24 08:14 Patient Disposition: Home, Self-Care Discharge Diagnosis: stroke vs ms Referrals: Yadi Britton MD [Physician] - 1 Week Elly Owusu MD [Primary Care Provider] - 1 Week Discharge Medications: New atorvastatin 40 mg Tablet 40 mg PO DAILY Qty: 90 0RF amlodipine 5 mg Tablet 5 mg PO DAILY Qty: 90 0RF Protocol: Hold for SBP< HOLD for SBP < : 90 aspirin 81 mg Tablet,Delayed Release (Dr/Ec) 81 mg PO DAILY Qty: 90 0RF Continued (DME) Dexcom G7 Sensor Device See Rx Instructions .Route Qty: 3 4RF Rx Instructions: As directed change every 10 days insulin glargine [Lantus Solostar U-100 Insulin] 100 unit/mL (3 mL) insulin pen 30 unit subcut BID magnesium oxide 400 mg magnesium Tablet 400 mg PO DAILY (DME) Ketone Urine Test Strip See Rx Instructions .ROUTE .MEDSUPPLY Qty: 25 1RF Rx Instructions: As directed Discontinued ibuprofen 200 mg Tablet 800 mg PO DAILY PRN (Reason: Fever Or Pain) Discharge Orders: Discharge Order (Routine); Ordered 08/28/24 Ordered By: Angel Alston Diet: Advance to usual diet Activity on Discharge: As tolerated Stand Alone Forms: Patient Portal Discharge page, Work/School Release Print Language: Greek Care Plan Goals: work up stroke vs ms Health Concerns: stroke vs ms Plan of Treatment: asa, statin, amlodipine follow up with neuro for spinal tap and further testing Assessment: see above
--- NOTE | 2024-08-28 08:34 | PC.NURSE ---
assumed care of patient at 0700, patient is alert and oriented x4, ambulatory with steady gait. VSS, resp even and unlabored. plan for patient d/c from inpatient admission.
[2024-08-28 08:35] VITALS: BP 169/78; PULSE 70; RESP 20; TEMP 36.8; O2SAT 100
== END 2024-08-28 08:32 | disposition home or self-care (01) | DRG 45 ==
LOC: HO.ED 20:05 → HO.EDOVER 21:07 → HO.IMC 08-28 08:11
PROVIDERS: Admitting Provider Student in an Organized Health Care Education/Training Program; Emergency Provider Emergency Medicine Emergency Medical Services; PCP Internal Medicine; Visit Provider Internal Medicine
DX: I63.9 Cerebral infarction, unspecified (principal); E10.42 Type 1 diabetes mellitus with diabetic polyneuropathy; E66.9 Obesity, unspecified; Z68.35 Body mass index [BMI] 35.0-35.9, adult; G35 Multiple sclerosis; F17.210 Nicotine dependence, cigarettes, uncomplicated; R29.703 NIHSS score 3; G81.91 Hemiplegia, unspecified affecting right dominant side; Z71.6 Tobacco abuse counseling; Z20.822 Contact with and (suspected) exposure to COVID-19; Z79.4 Long term (current) use of insulin; Z79.899 Other long term (current) drug therapy
CPT/HCPCS: 0241U; 36415; 70551; 71046; 80048; 80053; 80061; 81001; 82947; 83036; 85025; 85610; 87086; 87651; 93306; 93880; 97162; 97166; 99285; J0360; J1650; J2060; Q9957

== ENCOUNTER 2024-08-26 20:34 | Outpatient (BNV) | payer BC, SELFPAY | END 2024-08-27 09:22 | PROVIDERS: Admitting Provider Student in an Organized Health Care Education/Training Program; Emergency Provider Emergency Medicine Emergency Medical Services; PCP Internal Medicine; Visit Provider Radiology Diagnostic Radiology | DX: I63.9 Cerebral infarction, unspecified (principal) | CPT/HCPCS: 93880 ==

== ENCOUNTER 2024-08-26 20:34 | Outpatient (BNV) | payer BC, SELFPAY | END 2024-08-27 07:00 | PROVIDERS: Admitting Provider Student in an Organized Health Care Education/Training Program; Emergency Provider Emergency Medicine Emergency Medical Services; PCP Internal Medicine; Visit Provider Internal Medicine Cardiovascular Disease | DX: I51.7 Cardiomegaly (principal); I63.9 Cerebral infarction, unspecified | CPT/HCPCS: 93306 ==

== ENCOUNTER → 2024-08-26 20:34 | Outpatient (BNV) | payer BC, SELFPAY | PROVIDERS: Admitting Provider Student in an Organized Health Care Education/Training Program; Emergency Provider Emergency Medicine Emergency Medical Services; PCP Internal Medicine; Visit Provider Physician Assistant | DX: I63.9 Cerebral infarction, unspecified (principal); J06.9 Acute upper respiratory infection, unspecified; E66.9 Obesity, unspecified; F17.200 Nicotine dependence, unspecified, uncomplicated | CPT/HCPCS: 99223; 99232; 99239 ==

== ENCOUNTER → 2024-08-26 20:34 | Outpatient (BNV) | payer BC, SELFPAY | PROVIDERS: Admitting Provider Student in an Organized Health Care Education/Training Program; Emergency Provider Emergency Medicine Emergency Medical Services; PCP Internal Medicine; Visit Provider Psychiatry & Neurology Neurology | DX: I63.9 Cerebral infarction, unspecified (principal); R90.89 Other abnormal findings on diagnostic imaging of central nervous system | CPT/HCPCS: 99222 ==

== ENCOUNTER → 2024-08-30 07:55 | Outpatient (BNVA) | payer BC, SELFPAY | PROVIDERS: PCP Internal Medicine; Visit Provider Nurse Practitioner Family | DX: E10.42 Type 1 diabetes mellitus with diabetic polyneuropathy (principal); Z96.41 Presence of insulin pump (external) (internal); Z86.73 Personal history of transient ischemic attack (TIA), and cerebral infarction without residual deficits; Z79.82 Long term (current) use of aspirin; Z79.899 Other long term (current) drug therapy | CPT/HCPCS: 82947; 96127 ==

== ENCOUNTER 2024-10-01 09:47 | Outpatient (AMB) | payer BC, SELFPAY ==
--- NOTE | 2024-10-01 09:48 | A.OFFVIS_ITS ---
Vital Signs 10/01/24 09:51 Height 5 ft 10 in Weight 258 lb 9.636 oz BMI 37.1 BP 150/84 H Blood Pressure Location Lt brachial Position Sitting Pulse 76 Pulse Source Pulse Oximeter Pulse Oximetry (%) 96 Oxygen Delivery Method Room Air Intake Visit Reasons: T1DM Intake Note: Patient present today for Type 1 Diabetes Mellitus Last Diabetic eye exam: 10/2023 Last Podiatry Visit: 08/2024 Random Glucose: 12 mg/dl HgA1C: 6.3% 08/26/24 Industrial Conveyor Belt Repairer Required: Yes Industrial Conveyor Belt Repairer Language: Production Broaching Machine Operator Services: Industrial Conveyor Belt Repairer Present Industrial Conveyor Belt Repairer Name: Sasha Information Interpreted: non-clinical & clinical Accompanied by: Self / Same As Patient Allergies No Known Allergies [No Known Allergies*] Allergy (Verified 10/01/24 09:55) HPI Comments Details: 44 yo male today for followup for DM 1 He was last seen in endocrine clinic 03/21/2024. Hemoglobin A1c 08/26/2024 6.3% 03/21/2024 6.6% He has been on a pump since approx 2017. Diagnosed in 1999 in DKA. He is feeling well. Hemoglobin A1c is 6.3%. Lantus 30 units twice daily Humalog 3-4 times per week no more 30-40 Unable to confirm settings Patient was not able to load dexcom clarity He reports he has had no lows Basal rate(s) (units/hour) : 12 AM? to 2 AM 1.35 units / hr 2 AM? to 11 AM 1.35 units / hr 11 AM to 4 PM 1.1 units / hr 4 PM to 12 AM 1.13 units / hr Bolus setting 12 AM? to 2 AM 1: 10 2 AM? to 12 AM 1:9 Correction Factor / Sensitivity Factor 12 AM? to 2 AM 1:40 2 AM? to 4 PM 1:35 4 PM to 12 AM 1:40 Control IQ Active Insulin Time:? 5 hours Control IQ Target(s): 12 AM? to 12 AM 110 mg/dL Patient is on basal IQ tandem with the dexcom G6. He has DM type 1 diagnosed at age 23. He has Other PMH of hyperlipidemia, hypertension. 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 sees pod every 2 months Has retinopathy(hypertensive) but no known nephropathy or macrovascular disease. Rare hypoglycemia Last opth: 08/30 Hypertensive retinopathy he will schedule patient Podiatry every 2 months, check feet daily does not walk barefoot Right Thyroid Lobe: 5.9 x 3.0 x 2.5 cm, volume 23.1 mL. Parenchyma: The gland echotexture is homogeneous. Thyroid vascularity is normal. Left Thyroid Lobe: 4.7 x 2.3 x 2.3 cm, volume 13.0 mL. Parenchyma: The gland echotexture is homogeneous. Thyroid vascularity is normal. Isthmus: 1.2 cm in maximum AP dimension. RIGHT THYROID LOBE: There is 1 nodule seen. 1. Location: Low/lateral. Size: 0.4 x 0.2 x 0.3 cm. Nodule characteristics: Hypoechoic and complex cystic, smooth margins, small calcification and no intranodular flow. Ultrasound appearance is suggestive of a colloid cyst. ISTHMUS: There is 1 nodule seen. 1. Location: Isthmus. Size: 0.6 x 0.3 x 0.6 cm. Nodule characteristics: Heterogeneous, smooth margins, no calcification and minimal peripheral flow. Question lobulated contour of the isthmus versus isoechoic nodule. This measures 1.1 x 1.4 cm in AP and transverse dimension. This is isoechoic, no calcification and demonstrates minimal flow. This is not well visualized sagittally for measurement. LEFT THYROID LOBE: There is 1 nodule seen. 1. Location: Mid. Size: 0.4 x 0.3 x 0.4 cm. Nodule characteristics: Hypoechoic and cystic, smooth margins, no calcification and no intranodular flow. NODES: No lymphadenopathy is seen in the tissue surrounding the thyroid gland. 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 Paternal Grandmother Diabetes Paternal Uncle Diabetes Family/Other Mental health disorder Social History (Updated 08/30/24 @ 08:22 by MARIA ALEJANDRA Stiles) Household Members: Spouse Housing: House Do you presently have visiting nurse or other home services: No Alcohol intake: current Alcohol intake frequency: holidays/special occasions only Alcohol type: beer Patient Tobacco Use Status: Current everyday Tobacco user Tobacco use type: Cigarette Cigarette Packs Per Day: 0.5 Cigarettes Per Day: 10 e-Cigarette/Vaping Use: Never Used Second Hand Smoke Exposure: Yes Substance Use Type: Marijuana service: No Current occupational status: employed Current occupational exposures/hazards: No Cognitive needs: No Hearing needs: No Vision needs: No Physical Exam Vital Signs: Last Vital Signs Pulse 76 10/01/24 09:51 BP 150/84 H 10/01/24 09:51 Pulse Ox 96 10/01/24 09:51 Oxygen Delivery Method Room Air 10/01/24 09:51 BMI result Body Mass Index 37.1 Const Other: Absence of Cushingoid features. Absence of acromegalic features. Neck exam reveals nl size thyroid about 15 gms. No thyroid nodules palpable. . Heart S1 S2, Reg R/R. No M/R G. Skin exam reveals absence of vitiligo or acanthosis nigricans. No edema foot exam deferred Assessment & Plan Assessment & Plan (1) Diabetes type 1, controlled: Code(s): E10.9 - Type 1 diabetes mellitus without complications Category: Medical Qualifiers: Diabetes mellitus complication status: with neurologic complications Diabetes mellitus complication detail: with polyneuropathy Qualified Code(s): E10.42 - Type 1 diabetes mellitus with diabetic polyneuropathy Plan: 44-year-old type 1 diabetic with neuropathy and hypertensive retinopathy on an insulin pump with the excellent control. A1C 08/26 6.3% He had difficulty setting up clarity cb which was not accept his e-mail or password and was not able to reset. He was offered calling [facility] or setting up an appointment with Katie ALLEN which he chose to see the Katie ALLEN. Ketone test strips sent and written protocol in Kyr[place]z was given to patient The patient had an opportunity to ask questions regarding treatment plan. The patient expressed understanding and agreement with the above treatment plan. The patient is aware they should contact our office by phone for worsening glucose readings or for any low blood sugars which may warrant a change in diabetes medication. Compliance is encouraged with medications and any followup testing/consults which may have been ordered. Patient Instructions: Symptoms of DKA (diabetic ketoacidosis): early: frequent urination, dry mouth, fatigue, feeling ill, severe symptoms: ketones in the urine, abdominal pain, nausea, vomiting and weakness. It is important to hydrate with sugar free liquids every 15-30 minutes and bring the sugars down to normal levels. If you are moderate or severe with ketones or unable to bring glucose to less than 200, go to the emergency room. Troubleshooting after starting new pod or inserting new insulin set: Occlusion, adhesive tape sensitivity, redness Check BG 2 hours after site change Safety information: Importance of a backup plan, for manual injections, proper prescriptions and emergency supplies ketone strips, and rules for testing for ketones Take 15 carb carbohydrate grams to treat a low sugar (3-4 glucose tablets, half a glass of juice or 15 carbohydrate grams of soft candy such as gummie snacks). Recheck your sugar in 15 minutes and re-treat again with 15 carbohydrate grams if low or still with symptoms. Do not drive a car or operate machinery if you do not know what your blood sugar is, if it is low or in excess of 300. Coding Level of Care Code Est Pt Level 4 (57073) Complex EM visit Add On G2211 Diagnoses Controlled type 1 diabetes mellitus with diabetic polyneuropathy E10.42 Diabetes mellitus complication status: with neurologic complications Diabetes mellitus complication detail: with polyneuropathy Time Spent (min) 35 Comment Time spent reviewing labs/provider notes, face to face, chart doc
[2024-10-01 09:51] VITALS: BP 150/84; PULSE 76; O2SAT 96; BMI 37.1
[2024-10-01 10:04] LABS: Glucose, Whole Blood 126 mg/dL (60-115)
--- OUTSIDE RECORDS SUMMARY | 2024-10-01 11:06 | XMS_ITS | Data Portability ---
Author Organization [facility]ly [facility], [facility] Address [address] [place] [phone] Care Team Providers Care Senior Formulation Scientist Name Role Phone CHARLIE MULLER Primary Care Provider CHARLIE MULLER Referring Provider Assessment No assessment recorded. Plan of Treatment Reminders Order Date Submit Date Provider Last Modified By Organization Details Last Modified Time Details Appointments None recorde d. Lab None recorde d. Referral None recorde d. Procedures None recorde d. Surgeries None recorde d. Imaging XR, foot, 3 or more view 017 08/25/19 17 [email or web address] In-House Test, For Internal Use Only, Do Not Delete/merge, [id number] 7 14:18:17 x-ray, foot, 3 views 016 09/09/19 16 [email or web address] In-House Test, For Internal Use Only, Do Not Delete/merge, [id number] 6 17:05:21 Medication Orders None recorde d. Patient TargetsNo targets recorded. Patient Instructions Encounter Date Encounter Id Patient Instructions Last Modified By Organization Details Last Modified Time 09/09/2015 [id number] Today spent abou t 30 minutes discussing with patient regarding his foot condition. ? ? ?He has had the right foot ulcers open and treated for over 3 years with no obvious infections noted but they are not healing and patient is here for a second opinion. ? ? ?Patient is being seen at the wound care center and is considering either surgery or hyperbaric oxygen therapy. ? ? ?Discussed with patient that regarding his x-rays he obviously has a short 5th metatarsal that is causing increased pressure on that side of the foot and the ulceration. ? ? ?He also has decreased fat pad on the plantar 5th met head region and is basically walking on the skin just covering the bone. ? ? ?As well he has another ulcer under the 1st met head and on the left foot has a large callus on the 5th met head region. ? ? ?Really the best treatment is to keep the pressure off that area and he has tried that with a diabetic shoe with off-loading cork. ? ? ?Another identical piece was added today to reduce more pressure. ? ? ?However, the shoe is not offering enough offloading. ? ? ? He could possibly benefit from a TCC to the foot to help heal the ulcer but will have a large chance of recurrence. ? ? ?If surgical off-loading was to be considered a few options to consider would be either a 5th met head resection but that would disrupt the parabola and increase pressure under the 4th met head and possible transfer ulceration. ? ? ?Therefore another option would be for a 5th metatarsal elevational osteotomy to reduce the pressure on the bone in that area and to keep the metatarsal parabola this hopefully would reduce chance of transfer lesion to the 4th met head but not a guarantee. ? ? ?As well due to the equinus of his foot would recommend a MYRON as well to reduce the forefoot pressure. ? ? ?The ulcer to the 1st met head is probably more due to the equinus and the medial loading of the foot to keep off the ulcer on the 5th. Concerns for this patient after surgery would certainly be would healing considering he is a smoker and would need to be strictly NWB or on a knee walker to reduce the pressure to the foot. ? ? ? On x-ray no obvious signs of osteomylitis but considering senior living ulceration if concern for bone infection and increased radiolucency on the x-ray an MRI on foot prior to r/o any deeper bone infection may be a good idea. ? ? ? [email or web address] Not available 09/09/2015 17:05:21 08/25/2016 Patient is being seen for left foot ulceration/ callus. Ulcer was noted today due to prominence of the 5th met head. Patient is not in diabetic shoes or orthotics to off-load the area. That was recommended to start along with frequent podiatry care of the calluses and ulcer. He has increased load on the left 5th met head and recommended either a 5th met removal or elevational osteotomy of that area to help heal the ulceration. There is risks of infection, further ulcer or transfer lesions. He does not have ulcer under the 1st met head on the left and no elevational osteotomy needed as he had on the right side. Right foot looks good except for the callus under the met head that may be due to the sesamoid in that region and may need surgery in the future. Patient comes from [place] and was recommended to return to previous surgeon who did right foot surgery as it is closer to where he lives. If he wants surgery that could be arranged for patient but may be difficult due to transportation and getting to post op appointments. He will call back if he has any other questions or wants to schedule surgery. [email or web address] Not available 08/25/2016 12:47:18 12/13/2018 [id number] Comprehensive Diabetic Foot Examination (CDFE) done today including vascular, neurologic, dermatologic and components. Explanation of systemic risks of diabetes and importance of proper glucose control. Explanation of dangers of neuropathy and loss of ? g ift of pain? . Counseling on risk stratification and exam frequency. Explanation of high pressure areas, risks and offloading solutions Counseling on proper daily self examination and monitoring of feet. Review of current medications. Shoe assessment was performed today to make sure they were not improper or causing harm for patient that could lead to foot ulceration. Patient will be seen back as needed for routine foot care in the office as needed. This is usually every 2-3 months based on patient's needs. Should there be any other concerns patient will contact the office. Patient is a high risk for ulcers due to lack of sensation and PVD. Recommend continued podiatric care with custom diabetic shoes and daily foot and shoe monitoring. Ulcer was noted under callus on the left 5th met head. He has been wearing multi-density inserts in normal shoes and they are a little narrow causing increased rubbing. Patient will be seen every 9 weeks for nail and callus care. [email or web address] Not available 12/13/2018 09:46:12 03/08/2019 [id number] Shoe assessment was performed today to make sure they were not improper or causing harm for patient that could lead to foot ulceration. Patient will be seen back as needed for routine foot care in the office as needed. This is usually every 2-3 months based on patient's needs. Should there be any other concerns patient will contact the office. Areas of callus are pre-ulcerative but not open today. Advised there is a high risk of opening up. [email or web address] Not available 03/08/2019 08:32:29 Reason for Referral None Reported. Results Created Date Observation Date Name Description Value Unit Range Abnormal Flag Note LastModifiedBy Organization Detail LastModifiedTime Result Notes None recorded. 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 Procedures Surgical History Date Name Laterality Status Provider Name and Address Organization Details Recorded Time 03/08/20 19 Nail Debridement (1-5 nails) completed Jeffry Mcdaniels DPM [address], [address], [facility] 03/08/2019 08:31:44 03/08/20 19 Trimming of Nondystrophic Nails completed Jeffry Mcdaniels DPM [address], [address], [facility] 03/08/2019 08:31:47 03/08/20 19 Keratoma (5+ lesions) completed Jeffry Mcdaniels DPM [address] [facility] [address], [place], [address], [facility] 03/08/2019 08:31:58 12/14/19 19 Nail Debridement (1-5 nails) completed Jeffry Mcdaniels DPM [address] [facility] [address], [place], [address], [facility] 12/13/2018 09:43:56 12/14/19 19 Trimming of Nondystrophic Nails completed Jeffry Mcdaniels DPM [address] [facility] [address], [place], [address], [facility] 12/13/2018 09:44:01 12/14/19 19 Keratoma (2 to 4 lesions) completed Jeffry Mcdaniels DPM [address] [address], [place], [address], [facility] 12/13/2018 09:43:42 12/14/19 19 Debridement Skin/Tissue (20sq cm or less) completed Jeffry Mcdaniels DPM [address] [address], [place], [address], [facility] 12/13/2018 09:43:35 08/25/19 17 Keratoma (1 lesion) completed Jeffry Mcdaniels DPM [address] [address], [place], [address], [facility] 08/25/2016 10:24:54 08/25/19 17 Debridement Skin/Tissue (20sq cm or less) completed Jeffry Mcdaniels DPM [address] [address], [place], [address], [facility] 08/25/2016 10:24:39 04/12/20 16 Foot Surgery completed Elzbieta Garcia [facility] 10/26/2016 14:18:17 09/09/19 16 Keratoma (1 lesion) completed Jeffry Mcdaniels, JUSTINO [address] [facility] [address], [place], [address], [facility] 09/09/2015 16:07:04 09/09/19 16 Debridement Skin/Tissue (20sq cm or less) completed Jeffry Mcdaniels DPM [address] [facility] [address], [place], [address], [facility] 09/09/2015 16:07:04 04/07/20 15 Foot Surgery completed Elzbieta Garcia [facility] 10/26/2016 14:18:17 Imaging Results None recorded. Procedure Notes None recorded. Medical Equipment None Reported. Allergies No known drug allergies Medications Name Sig Start Date Stop Date Status Note LastModified by Organization Details LastModified Time oxcarbazepine 300 mg tabs 12/13 completed Not Available Not Available Not Available sertraline hcl 25 mg tabs 12/13 completed Not Available Not Available Not Available vitamin d 10109 unit caps 12/13 completed Not Available Not Available Not Available cephalexin 500 mg caps 12/13 completed Not Available Not Available Not Available zolpidem tartrate 10 mg tabs 12/13 completed Not Available Not Available Not Available oxycodone hcl 5 mg tabs 12/13 completed Not Available Not Available Not Available gabapentin 300 mg caps 12/13 completed Not Available Not Available Not Available humalog 100 unit/ml soln 12/13 completed Not Available Not Available Not Available amoxicillin/clav ulanate potassium 875-125 mg tabs 12/13 completed Not Available Not Available Not Available sertraline hcl 50 mg tabs 12/13 completed Not Available Not Available Not Available tiburcio contour next blood glucose test strp 12/13 completed Not Available Not Available Not Available atorvastatin calcium 20 mg tabs 12/13 completed Not Available Not Available Not Available quetiapine 25 mg tablet 12/13 completed Not Available Not Available Not Available atorvastatin 20 mg tablet active Not Available Not Available No t Available penicillin V potassium 500 mg tablet 12/13 completed Not Available Not Available Not Available oxcarbazepine 300 mg tablet 12/13 completed Not Available Not Available Not Available sulfamethoxazole 800 mg-trimethoprim 160 mg tablet 12/13 completed Not Available Not Available Not Available oxycodone-acetam inophen 5 mg-325 mg tablet 12/13 completed Not Available Not Available Not Available Humalog U-100 Insulin 100 unit/mL subcutaneous solution active Not Available Not Available Not Available cephalexin 500 mg capsule 12/13 completed Not Available Not Available Not Available nystatin 100,000 unit/gram topical cream active Not Available Not Availabl e Not Available gabapentin 300 mg capsule active Not Available Not Available N ot Available zolpidem 10 mg tablet 12/13 completed Not Available Not Available Not Available Vitamin D2 1,250 mcg (50,000 unit) capsule 12/13 completed Not Available Not Available Not Available sertraline 50 mg tablet 12/13 completed Not Available Not Available Not Available amoxicillin 875 mg-potassium clavulanate 125 mg tablet 12/13 completed Not Available Not Available Not Available enoxaparin 40 mg/0.4 mL subcutaneous syringe 12/13 completed Not Available Not Available Not Available chlorhexidine gluconate 0.12 % mouthwash 12/13 completed Not Available Not Available Not Available quetiapine 50 mg tablet 12/13 completed Not Available Not Available Not Available Contour Next Test Strips 12/13 completed Not Available Not Available Not Available Vitals Date Recorded Body height Body mass index (BMI) Body weight Pain severity - 0-10 verbal numeric rating [Score] - Reported Provider Name and Address Organization Details Last Updated DateTime 12/13/2018 177.8 cm 40.9 kg/m2 302524.83 g 0 [facility] 12/13/2018 08:57:23 Date Recorded Body height Body mass index (BMI) Body weight Pain severity - 0-10 verbal numeric rating [Score] - Reported Provider Name and Address Organization Details Last Updated DateTime 03/08/2019 177.8 cm 40.9 kg/m2 870401.83 g 0 [facility] 03/08/2019 08:07:58 Date Recorded Systolic blood pressure Diastolic blood pressure Provider Name and Address Organization Details Last Updated DateTime 03/08/2019 122 mm[Hg] 82 mm[Hg] Elba Lemus [facility] 03/08/2019 08:13:00 Date Recorded Body mass index (BMI) Body weight Body height Provider Name and Address Organization Details Last Updated DateTime 09/09/2015 40.4 kg/m2 337966.5774 g 180.34 cm Tg Pardo [facility] 09/09/2015 15:20:29 Date Recorded Body height Body weight Body mass index (BMI) Provider Name and Address Organization Details Last Updated DateTime 08/25/2016 177.8 cm 073336.83 g 40.9 kg/m2 Elzbieta SarinaRafiaJaun [facility] 10/26/2016 14:18:17 Social History Question Answer Notes LastModified by Organizat ion Details LastModified Time Tobacco Smoking Status Current Some Day Smoker Tg Pardo [facility] 09/09/2015 15:18:26 What Is Your Level Of Alcohol Consumption? Occasional Information not available 09/09/2015 Which Illicit Or Recreational Drugs Have You Used? [place] Information not available 09/09/2015 What Is Your Occupation? Unknown Information not available 10/26/2016 What Is Your Shoe Size & Width? 14 Information not available 09/09/2015 Marital Status Informatio n not available 10/26/2016 What Was The Date Of Your Most Recent Tobacco Screening? 12/13/2018 Information not available 02/28/2019 How Much Tobacco Do You Smoke? 1 PPW Information not available 09/09/2015 How Many Years Have You Smoked Tobacco? 0 Information not available 10/26/2016 Sex: Unknown Functional Status None recorded. Mental Status None recorded. Family History Relationship Description Onset Age of this Age Resolved Age Notes LastModified by Organization Details LastModified Time Paternal Uncle Diabetes mellitus [email or web address] Not available 2015 16:44:31 Father No current problems or disability [email or web address] Not available 10/26 14:18:17 Mother No current problems or disability [email or web address] Not available 10/26 14:18:17 Medical History Condition Response High Blood Pressure N Lower Limb amputations N MRSA N Emphysema N Respiratory Disease N Congenital Heart Lesions N Pacemaker N Bleeding Tendency N Deep Vein Thrombosis N Varicose Veins N Arthritis N Blood Disease N Cancer N Chemical Dependency N Stroke N Shortness of Breath N High Cholesterol Y Liver Disease N Rheumatoid Arthritis N Foot Deformity N Fibromyalgia N Hepatitis A, B, or C N Ulcer N Kidney Disease N Circulatory Problems N Thyroid Problems N Psychiatric Care N Anemia N Multiple Sclerosis N Diabetes Y Rheumatic Fever N Seizures/Epilepsy N Heart Murmur N Tuberculosis N AIDS/HIV N Low Blood Pressure N Asthma N Epilepsy N Peripheral Vascular Disease N Mitral Valve Prolapse N Heart Disease N Past Encounters Encounter ID Performer Location Encounter Start Date Encounter Closed Date Diagnosis/Indication Diagnosis SNOMED-CT Code Diagnosis ICD10 Code Diagnosis Note [id number] Jeffry Mcdaniels DPM [facility] [address] [address] 09/09/2015 15:02:46 09/09/2015 16:19:08 Foot callus 361740515 L84 Diabetes mellitus 925179 09 E11.49 Diabetic foot ulcer 3710 17557 L97.509 Metatarsalgia 78225948 M 77.41 [id number] Elzbieta Garcia [facility] [address] [address] 08/25/2016 09:46:28 08/25/2016 10:30:32 Keratoma 027386840 L84 Plantarfle xion deformity of foot 711453710 M21.6X2 Diabetic foot ulcer 3710 88207 E11.40 Ulcer of foot 38864244 L 97.521 [id number] Jeffry Mcdaniels DPM [facility] [address] [address] 12/13/2018 08:49:23 12/13/2018 09:49:40 Diabetes mellitus 64782101 E11.49 Type 2 daniel betes mellitus 00143732 E11.9 Foot callus 394170764 L8 4 Ulcer of foot 29968233 L 97.521 Ingrowing nail 641568554 L60.0 Foot pain 39318007 M79.6 71 M79.672 Onychomyco sis due to dermatophyte 089501003 B35.1 [id number] Jeffry Mcdaniels DPM [facility] [address] [address] 03/08/2019 07:55:18 03/08/2019 08:35:17 Diabetes mellitus 71458305 E11.49 Type 2 daniel betes mellitus 97610163 E11.9 Foot callus 717865473 L8 4 Ingrowing nail 027597580 L60.0 Foot pain 68055795 M79.6 71 M79.672 Onychomyco sis due to dermatophyte 315038583 B35.1 Health Concerns Section Related Observation LastModified by Organization Detai ls LastModified Time None Recorded Concern Status LastModified by Organization Details LastModified Time None Recorded Advance Directives Directive None Recorded Payers Encounter Date Sequence Insurance Name Policy Number Policy Mata Covered Member ID Mata Member ID Guarantor Name 09/09/2015 1 [facility] [id number] Tasia Kumari [id number] Larry Payne 08/25/2016 1 [facility] [id number] Larry Payne [id number] Larry Payne 12/13/2018 1 [facility] [id number] Tasia Kumari [id number] Larry Payne 03/08/2019 1 [facility]: [facility] ([facility] [id number] Tasia Kumari [id number] Larry Payne Notes Date Note Type Note Provider Name and Address Organization Details Recorded Time 09/09/2015 text/html Foot PainReporte d bypatient.Location:ri ghtNotes:Patient has chronic ulcer to the right plantar 1st and 5th met head for about 3 years has been open. He has been having podiatric care for the ulcers every month. He has had an infection in the past in the right foot that cleared up and on the left foot 2nd digit that led to amputation of the digit. He is using Iodosorb on the ulcers daily. Jeffry Mcdaniels DPM [address] [address], [place], [address], [facility] 09/09/2015 17:05:41 08/25/2016 text/html General Foot ProblemReported bypatient.Location:bi lateral Quality:aching; stabbing Associated Symptoms:no weakness; no numbness; no tingling; no radiation down leg; no drainage Prior Imaging:none Previous Injections:noneNotes: Patient is here today to have his feet looked at. He has had right foot surgery to help with the bony prominences and is concerned on the left foot for the large callus on the 5th met head region. Jeffry Mcdaniels DPM [address] [address], [place], [address], [facility] 08/25/2016 12:48:51 12/13/2018 text/html Routine Foot CareReported bypatient.Location:bi lateral Severity:mild Timing:cannot identify Context:cannot identifyNotes:Patient is here for a diabetic foot exam as well as a routine visit. Jeffry Mcdaniels DPM [address] [address], [place], [address], [facility] 12/13/2018 09:46:48 03/08/2019 text/html Routine Foot CareReported bypatient.Location:bi lateral Severity:no pain Timing:cannot identify Context:cannot identify Aggravating Factors:cannot identify Associated Symptoms:no redness; no warmth; no ecchymosis; no drainage; no swelling; no fever; no chills; no pain with direct compressionNotes:poncho ent presents to the office for routine foot care. Jeffry Mcdaniels DPM [address] [address], [place], [address], [facility] 03/08/2019 08:32:56
--- OUTSIDE RECORDS SUMMARY | 2024-10-01 11:06 | XMS_ITS | Clinical Summary ---
Author Organization [facility] Address [address] [place] [address] Care Team Providers Care Administrative Support Assoc Name Role Phone Elly Anne MD Primary Care Provider [phone] Social History Tobacco Use Types Packs/Day Years Used Date Smoking Tobacco: Never Assessed Sex and Gender Information Value Date Recorded Sex Assigned at Not on file Legal Sex Male 3:43 PM EDT Gender Identity Not on file Sexual Orientation Not on file Last Filed Vital Signs Vital Sign Reading Time Taken Comments Blood Pressure - - Pulse - - Temperature - - Respiratory Rate - - Oxygen Saturation - - Inhaled Oxygen Concentration - - Weight 113 kg (250 lb) 01/29/2024 9:31 AM EDT Height 177.8 cm (5' 10 ) 01/29/2024 9:31 AM EDT Body Mass Index 35.87 01/29/2024 9:31 AM EDT Plan of Treatment Health Maintenance Due Date Last Done Comments DTaP,Tdap,and Td Vaccines (1 - Tdap) 01/20/1999 Hepatitis B Vaccines (1 of 3 - 19+ 3-dose series) 01/20/1999 COVID-19 Vaccine ( - 2023-2 5 season) 2024 Influenza Vaccine (#1) 2024 Cholesterol Screening (Lipid Panel) 05/16/2024 Depression Screening 05/16/2024 HIV Screening 05/16/2024 Hepatitis C Screening 05/16/2024 Social Influencers of Health Screening 05/16/2024 HIB Vaccines Aged Out No longer eligi ble based on patient's age to complete this topic HPV Vaccines Aged Out No longer eligi ble based on patient's age to complete this topic Hepatitis A Vaccines Aged Out No long er eligible based on patient's age to complete this topic IPV Vaccines Aged Out No longer eligi ble based on patient's age to complete this topic MMR Vaccines Aged Out No longer eligi ble based on patient's age to complete this topic Meningococcal ACWY Vaccine Aged Out N o longer eligible based on patient's age to complete this topic Meningococcal B Vacine Aged Out No lo nger eligible based on patient's age to complete this topic Pneumococcal Vaccine: Pediat rics (0 to 5 Years) and At-Risk Patients (6 to 64 Years) Aged Out No longer eligible b ased on patient's age to complete this topic RSV Immunization Patients Un vandana 20 months Aged Out No longer eligible b ased on patient's age to complete this topic Varicella Vaccines Aged Out No longer eligible based on patient's age to complete this topic Care Teams Administrative Support Assoc Relationship Specialty Start Date End Date Elly Anne MD [address] [place] [address] , [address] [place] [address] Physician Associ D/B/A: [facility] CE[facility] [place] PCP - General 01/18/24
== END 2024-10-01 10:27 | disposition home or self-care (01) ==
PROVIDERS: PCP Internal Medicine; Visit Provider Nurse Practitioner Adult Health
DX: E10.42 Type 1 diabetes mellitus with diabetic polyneuropathy (principal)
CPT/HCPCS: 99214

== ENCOUNTER → 2024-10-01 09:47 | Outpatient (BNVA) | payer BC, SELFPAY | PROVIDERS: PCP Internal Medicine; Visit Provider Nurse Practitioner Adult Health | DX: E10.42 Type 1 diabetes mellitus with diabetic polyneuropathy (principal); E10.319 Type 1 diabetes mellitus with unspecified diabetic retinopathy without macular edema; Z96.41 Presence of insulin pump (external) (internal) | CPT/HCPCS: 82947 ==

== ENCOUNTER 2024-10-24 16:15 | Outpatient (AMB) | payer BC, SELFPAY ==
--- NOTE | 2024-10-24 16:21 | A.OFFPC_ITS ---
Vital Signs 10/24/24 16:24 Height 5 ft 10 in Weight 260 lb BMI 37.3 BP 120/68 Blood Pressure Location Lt brachial Position Sitting Intake Visit Reasons: Dm Intake Note: Patient here for a follow up DM Material Lister Required: No Accompanied by: Self / Same As Patient Allergies No Known Allergies [No Known Allergies*] Allergy (Verified 10/24/24 16:30) Medication List - Last Reconciled 10/24/24 by Elly Anne MD acetone (urine) test (Ketone Urine Test strips) As directed atorvastatin 40 mg PO DAILY blood-glucose sensor (Dexcom G7 Sensor device) As directed change every 10 days magnesium oxide 400 mg PO DAILY Tobacco use date assessed: 08/30/24 Dental Screening Dental Screen Date: 08/30/24 HPI HPI Comments History of Present Illness Details The patient is a 44-year-old male presenting with evaluation of a suspected cerebrovascular event. He experienced transient left-sided weakness, which prompted initial suspicion of either a cerebrovascular accident or demyelinating disease, compounded by a family history of multiple sclerosis. MRI findings raised concerns for a focus that suggested either a possible stroke or multiple sclerosis. Further, there was a discussion regarding transient ischemic attack due to his father experiencing similar symptoms. He awaits a neurology evaluation for further clarity. Concurrently, the patient has diabetes mellitus, managed with an A1c of 6.9%, suggesting reasonable glycemic control through his current medication regimen. Tobacco use is ongoing, and despite recognizing the risks, cessation has not yet commenced. He also handles depressive symptoms which have improved with appropriate management over recent months. Other minor issues like nasal congestion or throat congestion were mentioned though specifics were not clear. 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 Paternal Grandmother Diabetes Paternal Uncle Diabetes Family/Other Mental health disorder Social History (Updated 08/30/24 @ 08:22 by MARIA ALEJANDRA Stiles) Household Members: Spouse Housing: House Do you presently have visiting nurse or other home services: No Alcohol intake: current Alcohol intake frequency: holidays/special occasions only Alcohol type: beer Patient Tobacco Use Status: Current everyday Tobacco user Tobacco use type: Cigarette Cigarette Packs Per Day: 0.5 Cigarettes Per Day: 10 e-Cigarette/Vaping Use: Never Used Second Hand Smoke Exposure: Yes Substance Use Type: Marijuana service: No Current occupational status: employed Current occupational exposures/hazards: No Cognitive needs: No Hearing needs: No Vision needs: No Questionnaire Thrive Questionnaire Date Thrive assessed: 08/27/24 TEODORO-7 AMB Questionnaire TEODORO-7 Date TEODORO - 7 assessed: 08/30/24 Source: Developed by Drs. Jace Padilla, Earlene Perez, Bogdan Luong and colleagues, with an educational lydia from [employer]. Review of Systems Const All systems reviewed & are unremarkable except as noted in HPI and below Card Denies chest pain at rest, Denies chest pain with activity, Denies edema, Denies irregular heart rhythm, Denies claudication, Denies dyspnea, Denies dyspnea on exertion, Denies orthopnea, Denies paroxysmal nocturnal dyspnea and Denies slow heart rate Resp Denies cough, Denies dyspnea and Denies dyspnea on exertion GI Denies abdominal pain, Denies change in bowel habits, Denies excessive flatus, Denies nausea and Denies vomiting Neuro Denies lack of coordination Physical exam (Primary Care) Vital Signs: Last Vital Signs BP 120/68 10/24/24 16:24 BMI result Body Mass Index 37.3 Tobacco/Smoking Status: Tobacco use Status Tobacco use date assessed 08/30/24 10/24/24 16:21 Patient Tobacco Use Status Current everyday Tobacco 10/24/24 16:21 Tobacco use type Cigarette 10/24/24 16:21 e-Cigarette/Vaping Use Never Used 10/24/24 16:21 Thrive Assessment: Date of Thrive Assessment Date Thrive assessed 08/27/24 10/24/24 16:21 Neck Neck: Yes normal visual inspection and Yes supple Resp Effort & Inspection: normal respiratory effort Auscultation: clear to auscultation bilaterally Cardio Jugular venous distension: no JVD Rate: regular rate Rhythm: regular rhythm Heart sounds: S1 normal heart sound present and S2 normal heart sound present Extrem General: Yes full ROM Results AMB Hemoglobin A1c AMB Hemoglobin A1c 6.9 % Last Edit by MARIA ALEJANDRA Gil on 10/24/24 16:2 9 Results Reviewed Results Reviewed: Laboratory Last Values Hgb A1c (Clinic) 6.9 % (4.0-6.0) H 10/24/24 16:17 Coding Level of Care Code Est Pt Level 4 (88047) Complex EM visit Add On G2211 Diagnoses Controlled type 1 diabetes mellitus with diabetic polyneuropathy E10.42 Diabetes mellitus complication status: with neurologic complications Diabetes mellitus complication detail: with polyneuropathy Diabetic polyneuropathy associated with type 1 diabetes mellitus E10.42 Diabetic retinopathy associated with type 1 diabetes mellitus E10.319 Dyslipidemia E78.5 Abnormal brain MRI R90.89 Time Spent (min) 23 Assessment & Plan Assessment & Plan (1) Diabetes type 1, controlled: Code(s): E10.9 - Type 1 diabetes mellitus without complications Category: Medical Qualifiers: Diabetes mellitus complication status: with neurologic complications Diabetes mellitus complication detail: with polyneuropathy Qualified Code(s): E10.42 - Type 1 diabetes mellitus with diabetic polyneuropathy (2) Diabetic polyneuropathy associated with type 1 diabetes mellitus: Code(s): E10.42 - Type 1 diabetes mellitus with diabetic polyneuropathy Category: Medical (3) Diabetic retinopathy associated with type 1 diabetes mellitus: Code(s): E10.319 - Type 1 diabetes mellitus with unspecified diabetic retinopathy without macular edema Category: Medical (4) Dyslipidemia: Comment: Code(s): E78.5 - Hyperlipidemia, unspecified Category: Medical (5) Abnormal brain MRI: Code(s): R90.89 - Other abnormal findings on diagnostic imaging of central nervous system Category: Medical Plan We will maintain the current diabetes medication regimen to sustain improved glycemic control, with an emphasis on the importance of monitoring A1c levels. Follow-up with the neurologist is essential to further explore the findings from the MRI, which highlight concerns regarding a potential cerebrovascular or demyelinating disease, taking into consideration the patient's family history. It is crucial that the patient quit smoking to reduce vascular risks; resources such as [facility] should be explored for assistance. Aspirin therapy should be revisited and continued for cardiovascular protection, acknowledging the risks of bleeding. The patient's depression appears well-managed; hence, ongoing care with current therapies is recommended. Nasal or throat symptomatology should be explored further if persistent. Patient was informed and verbally consented to the use of an ambient scribe for clinic note documentation during this visit. During the discussion, I explained to the patient the importance of the neurology follow-up given the potential implications of the MRI findings on his future health and the need to differentiate between a stroke, TIA, or multiple sclerosis, especially considering family history. I also strongly emphasized smoking cessation due to its risks to vascular health, outlining available [facility] resources. Depression management was reviewed, confirming improvement. Insight on continuing aspirin therapy was provided, including explanation of benefits versus bleeding risks, and the patient was advised on symptom monitoring strategies. Future check-ups for surveillance of blood glucose and potential ENT referral depending on symptom persistence were also highlighted. Orders: Orders Vitamin D 25-OH Total 4 Months E55.9 - Vitamin D deficiency, unspecified AMB Hemoglobin A1c Today E10.42 - Type 1 diabetes mellitus with diabetic polyneuropathy Lipid Panel 4 Months E78.5 - Hyperlipidemia, unspecified Microalbumin, Random (w Creat) 4 Months R80.9 - Proteinuria, unspecified Comprehensive [place]. Panel Fast 4 Months E10.42 - Type 1 diabetes mellitus with diabetic polyneuropathy Medications: New aspirin (Adult Aspirin Regimen) 81 mg PO DAILY 90 tabs 3RF 90 days aspirin (Adult Aspirin Regimen) 81 mg PO DAILY 90 days 90 tabs 3RF Patient Instructions: - Continue current diabetes medication as prescribed. - Maintain the follow-up appointment with the neurologist. - Consider utilizing [facility] to aid in smoking cessation. - Restart aspirin as previously indicated, monitoring for any bleeding. - Monitor blood glucose levels regularly. - Return for evaluation should nasal or throat symptoms persist. - Continue depression management strategies as currently planned.
[2024-10-24 16:24] VITALS: BP 120/68; BMI 37.3
--- OUTSIDE RECORDS SUMMARY | 2024-10-24 18:04 | XMS_ITS | Data Portability ---
Author Organization [facility], [facility] Address [address] [place] [address] Care Team Providers Care Afric[employer] Studies Professor Name Role Phone CHARLIE MULLER Primary Care Provider CHARLIE MULLER Referring Provider [phone] Assessment No assessment recorded. Plan of Treatment Reminders Order Date Submit Date Provider Last Modified By Organization Details Last Modified Time Details Appointments None recorde d. Lab None recorde d. Referral None recorde d. Procedures None recorde d. Surgeries None recorde d. Imaging XR, foot, 3 or more view 017 08/25/19 17 [email or web address] In-House Test, For Internal Use Only, Do Not Delete/merge, [id number] 7 14:18:17 x-ray, foot, 3 views 016 09/09/19 16 [email or web address] In-House Test, For Internal Use Only, Do Not Delete/merge, [id number] 6 17:05:21 Medication Orders None recorde d. [...] no obvious signs of osteomylitis but considering group home ulceration if concern for bone infection and [...] surgery in the future. Patient comes from [place] and was recommended to return to previous [...] surgery. [email or web address] Not available 08/25/2016 12:47:18 12/13/2018 [id number] Comprehensive Diabetic Foot Examination (CDFE) done today [...] care. dpelto Not available 12/13/2018 09:46:12 03/08/2019 [id number] Shoe assessment was performed today to make [...] Address Organization Details Recorded Time Foot callus 102163313 Active Jeffry Mcdaniels DPM [address], [address], [facility] 6 17:05:21 Diabetes mellitus 80067158 Active Jeffry Mcdaniels DPM [address], [address], [facility] 6 17:05:21 Diabetic foot ulcer 058285922 Active Jeffry Mcdaniels DPM [address], [address], [facility] 6 17:05:21 Metatarsalgia 47195789 Active Jeffry Mcdaniels DPM [address], [address], [facility] 6 17:05:21 Problem Notes None recorded. Procedures Surgical History Date Name Laterality Status Provider Name and Address Organization Details Recorded Time 03/08/20 19 Nail Debridement (1-5 nails) completed Jeffry Mcdaniels DPM [address], [address], [facility] 03/08/2019 08:31:44 03/08/20 19 Trimming of Nondystrophic Nails completed Jeffry Mcdaniels DPM [address], [address], [facility] 03/08/2019 08:31:47 03/08/20 19 Keratoma (5+ lesions) completed Jeffry Mcdaniels DPM 299 [facility] [address], [place], [address], [facility] 03/08/2019 08:31:58 12/14/19 19 Nail Debridement (1-5 nails) completed Jeffry Mcdaniels DPM 299 [facility] [address], [place], [address], [facility] 12/13/2018 09:43:56 12/14/19 19 Trimming of Nondystrophic Nails completed Jeffry Mcdaniels DPM 299 [facility] [address], [place], [address], [facility] 12/13/2018 09:44:01 12/14/19 19 Keratoma (2 to 4 lesions) completed Jeffry Mcdaniels DPM [address] [address], [place], [address], [facility] 12/13/2018 09:43:42 12/14/19 19 Debridement Skin/Tissue (20sq cm or less) completed Jeffry Mcdaniels DPM [address] [address], [place], [address], [facility] 12/13/2018 09:43:35 08/25/19 17 Keratoma (1 lesion) completed Jeffry Mcdaniels DPM [address] [address], [place], [address], [facility] 08/25/2016 10:24:54 08/25/19 17 Debridement Skin/Tissue (20sq cm or less) completed Jeffry Mcdaniels DPM [address] [address], [place], [address], [facility] 08/25/2016 10:24:39 04/12/20 16 Foot Surgery completed Elzbieta Garcia [facility] 10/26/2016 14:18:17 09/09/19 16 Keratoma (1 lesion) completed Jeffry Mcdaniels, JUSTINO [address] [facility] [address], [place], [address], [facility] 09/09/2015 16:07:04 09/09/19 16 Debridement Skin/Tissue (20sq cm or less) completed Jeffry cMdaniels DPM 299 [facility] [address], [place], [address], [facility] 09/09/2015 16:07:04 04/07/20 15 Foot Surgery completed Elzbieta Garcia [facility] 10/26/2016 14:18:17 Imaging Results None recorded. Procedure Notes None recorded. Medical Equipment None Reported. Allergies No known drug allergies Medications Name Sig Start Date Stop Date Status Note LastModified by Organization Details LastModified Time oxcarbazepine 300 mg tabs 12/13 completed Not Available Not Available Not Available sertraline hcl 25 mg tabs 12/13 completed Not Available Not Available Not Available vitamin d 88298 unit caps 12/13 completed Not Available Not [...] Updated DateTime 12/13/2018 177.8 cm 40.9 kg/m2 541640.83 g 0 [facility] 12/13/2018 08:57:23 Date Recorded Body height Body mass index (BMI) Body weight Pain severity - 0-10 verbal numeric rating [Score] - Reported Provider Name and Address Organization Details Last Updated DateTime 03/08/2019 177.8 cm 40.9 kg/m2 812841.83 g 0 [facility] 03/08/2019 08:07:58 Date Recorded Systolic blood pressure Diastolic blood pressure Provider Name and Address Organization Details Last Updated DateTime 03/08/2019 122 mm[Hg] 82 mm[Hg] Elba Lemus [facility] 03/08/2019 08:13:00 Date Recorded Body mass index (BMI) Body weight Body height Provider Name and Address Organization Details Last Updated DateTime 09/09/2015 40.4 kg/m2 475813.1892 g 180.34 cm Tg Pardo [facility] 09/09/2015 15:20:29 Date Recorded Body height Body weight Body mass index (BMI) Provider Name and Address Organization Details Last Updated DateTime 08/25/2016 177.8 cm 385231.83 g 40.9 kg/m2 Elzbieta SarinaRafiaJaun [facility] 10/26/2016 14:18:17 Social History Question Answer Notes LastModified by Organizat ion Details LastModified Time Tobacco Smoking Status Current Some Day Smoker Tg Pardo [facility] 09/09/2015 15:18:26 What Is Your Level Of Alcohol Consumption? Occasional Information not available 09/09/2015 Which Illicit Or Recreational Drugs Have You Used? Maynard Information not available 09/09/2015 What Is Your [...] MRSA N Emphysema N Respiratory Disease N Circulatory Problems N Congenital Heart Lesions N Thyroid Problems N Psychiatric Care N Pacemaker N Anemia N Multiple Sclerosis N Bleeding Tendency N Deep Vein Thrombosis N Varicose Veins N Diabetes Y Rheumatic Fever N Arthritis N Seizures/Epilepsy N Blood Disease N Heart Murmur N Tuberculosis N AIDS/HIV N Cancer N Chemical Dependency N Stroke N Low Blood Pressure N Asthma N Epilepsy N Peripheral Vascular Disease N Shortness of Breath N High Cholesterol Y Mitral Valve Prolapse N Liver Disease N Heart Disease N Rheumatoid Arthritis N Fibromyalgia N Foot Deformity N Hepatitis A, B, or C N Ulcer N Kidney Disease N Past Encounters Encounter ID Performer Location Encounter Start Date Encounter Closed Date Diagnosis/Indication Diagnosis SNOMED-CT Code Diagnosis ICD10 Code Diagnosis Note [id number] Jeffry Mcdaniels DPM [facility] [address] [address] 09/09/2015 15:02:46 09/09/2015 16:19:08 Foot callus 651287305 L84 Diabetes mellitus 113272 09 E11.49 Diabetic foot ulcer 3710 43944 L97.509 Metatarsalgia 78077856 M 77.41 [id number] Elzbieta Garcia [facility] [address] [address] 08/25/2016 09:46:28 08/25/2016 10:30:32 Keratoma 814632491 L84 Plantarfle xion deformity of foot 373761860 M21.6X2 Diabetic foot ulcer 3710 60768 E11.40 Ulcer of foot 97091254 L 97.521 [id number] Jeffry Mcdaniels DPM [facility] [address] [address] 12/13/2018 08:49:23 12/13/2018 09:49:40 Diabetes mellitus 73767458 E11.49 Type 2 daniel betes mellitus 57615044 E11.9 Foot callus 099188683 L8 4 Ulcer of foot 00066294 L 97.521 Ingrowing nail 141900474 L60.0 Foot pain 04221408 M79.6 71 M79.672 Onychomyco sis due to dermatophyte 121363035 B35.1 [id number] Jeffry Mcdaniels DPM [facility] [address] [address] 03/08/2019 07:55:18 03/08/2019 08:35:17 Diabetes mellitus 40885073 E11.49 Type 2 daniel betes mellitus 27381681 E11.9 Foot callus 211837616 L8 4 Ingrowing nail 589109776 L60.0 Foot pain 26091836 M79.6 71 M79.672 Onychomyco sis due to dermatophyte 085508191 B35.1 Health Concerns Section Related Observation LastModified by Organization Detai ls LastModified Time None Recorded Concern Status LastModified by Organization Details LastModified Time None Recorded Advance Directives Directive None Recorded Payers Encounter Date Sequence Insurance Name Policy Number Policy Mata Covered Member ID Mata Member ID Guarantor Name 09/09/2015 1 [facility] [id number] Tasia Kumari [id number] Larry Payne 08/25/2016 1 [facility] [id number] Larry Payne [id number] Larry Payne 12/13/2018 1 [facility] [id number] Tasia Costaiza [id number] Larry Payne 03/08/2019 1 [facility] [id number] Tasia Costaiza [id number] Larry Payne Notes Date Note Type Note [...] the ulcers daily. Jeffry Mcdaniels DPM [address] [address], [place], [address], [facility] 09/09/2015 17:05:41 08/25/2016 text/html General [...] met head region. Jeffry Mcdaniels DPM [address], [address], [facility] 08/25/2016 12:48:51 12/13/2018 text/html Routine Foot CareReported bypatient.Location:bi lateral Severity:mild Timing:cannot identify Context:cannot identifyNotes:Patient is here for a diabetic foot exam as well as a routine visit. Jeffry Mcdaniels DPM [address], [address], [facility] 12/13/2018 09:46:48 03/08/2019 text/html Routine Foot CareReported bypatient.Location:bi lateral Severity:no pain Timing:cannot identify Context:cannot identify Aggravating Factors:cannot identify Associated Symptoms:no redness; no warmth; no ecchymosis; no drainage; no swelling; no fever; no chills; no pain with direct compressionNotes:poncho ent presents to the office for routine foot care. Jeffry Mcdaniels DPM [address], [address], [facility] 03/08/2019 08:32:56
--- OUTSIDE RECORDS SUMMARY | 2024-10-24 18:04 | XMS_ITS | Clinical Summary ---
Author Organization [employer] [facility] Address [address] [place] [address] Care Team Providers Care Crawler Dragline Operator Name Role Phone Elly Anne MD Primary Care Provider [phone] Social History Tobacco Use Types Packs/Day Years [...] age to complete this topic Care Teams Crawler Dragline Operator Relationship Specialty Start Date End Date Elly Anne MD [address] [place] [address] , [address] [place] [address] Physician Associ D/B/A: [facility] PCP - General 01/18/24
== END 2024-10-24 16:46 | disposition home or self-care (01) ==
LOC: HO.HMCH 16:15
PROVIDERS: PCP Internal Medicine; Visit Provider Internal Medicine
DX: E10.42 Type 1 diabetes mellitus with diabetic polyneuropathy (principal); E10.319 Type 1 diabetes mellitus with unspecified diabetic retinopathy without macular edema; E78.5 Hyperlipidemia, unspecified; R90.89 Other abnormal findings on diagnostic imaging of central nervous system

== ENCOUNTER → 2024-10-24 16:15 | Outpatient (BNVA) | payer BC, SELFPAY | PROVIDERS: PCP Internal Medicine; Visit Provider Internal Medicine | DX: E10.42 Type 1 diabetes mellitus with diabetic polyneuropathy (principal); E10.319 Type 1 diabetes mellitus with unspecified diabetic retinopathy without macular edema; E78.5 Hyperlipidemia, unspecified; R90.89 Other abnormal findings on diagnostic imaging of central nervous system | CPT/HCPCS: 83036 ==

== ENCOUNTER 2024-12-11 09:16 | Outpatient (AMB) | payer BC, SELFPAY ==
--- NOTE | 2024-12-11 09:18 | MHC.OFFVIS ---
Vital Signs 12/11/24 09:19 Height 5 ft 10 in Weight 267 lb BMI 38.3 BP 128/82 Blood Pressure Location Rt brachial Position Sitting Pulse 64 Pulse Source Pulse Oximeter Pulse Oximetry (%) 98 Oxygen Delivery Method Room Air Intake Visit Reasons: INP-Cerebral infarction-LVM Intake Note: Patient referred inhouse Dr. Rowe for CVA due to stenosis of posterior cerebral artery unspecified blood vessel laterality Hospital Intern Required: Yes Hospital Intern Services: Hospital Intern Present Hospital Intern Name: catrachita coley Information Interpreted: non-clinical & clinical Allergies No Known Allergies [No Known Allergies*] Allergy (Verified 12/11/24 09:20) Medication List - Last Reconciled 12/11/24 by Essence Granados MD acetone (urine) test (Ketone Urine Test strips) As directed aspirin (Adult Aspirin Regimen) 81 mg PO DAILY 90 days atorvastatin 40 mg PO DAILY blood-glucose sensor (Dexcom G7 Sensor device) As directed change every 10 days magnesium oxide 400 mg PO DAILY HPI Comments Details: 44-year-old male comes for neurological evaluation . He was in the hospital 4 mths ago for left sided weakness. He was found to have a Right yousif 1.3 cm restricted diffusion c/w acute stroke . multiple white matter lesions were seen supratentorially. he was seen by Dr. Alexandra - started on aspirin 81mg qd and atorvostatin 80 mg qd. he denies diplopia, dysarthria, dizziness. He occaisonally has headaches he reports disrupted sleep with excessive daytime sleepiness.His last Hg A1C is 6.5 Notes from his hospital admission-a past medical history of depression, anxiety, obesity, hyperlipidemia, multinodular goiter, type 2 diabetes on insulin, and diabetic neuropathy, presented to the ED due to upper respiratory symptoms including chills, sore throat, rhinorrhea and cough with associated left-sided numbness in the upper and lower extremities within past 4-5 days. At the start of his weakness symptoms he had left-sided neck pain which has resolved. The patient reports that he recently come back from [place]. He does not have any history of any blood clots or stroke. His father a stroke in his 60s and he denies any family history of MS. He reports he recently lost ?100 lb in the past month due to significant dietary changes and has not needed to use his insulin. Reports his last insulin use was 3 days ago, he has been checking his blood sugars and has not needed it. 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 Paternal Grandmother Diabetes Paternal Uncle Diabetes Family/Other Mental health disorder Social History Household Members: Spouse Housing: House Do you presently have visiting nurse or other home services: No Alcohol intake: current Alcohol intake frequency: holidays/special occasions only Alcohol type: beer Patient Tobacco Use Status: Current everyday Tobacco user Tobacco use type: Cigarette Cigarette Packs Per Day: 0.5 Cigarettes Per Day: 10 e-Cigarette/Vaping Use: Never Used Second Hand Smoke Exposure: Yes Substance Use Type: Marijuana service: No Current occupational status: employed Current occupational exposures/hazards: No Cognitive needs: No Hearing needs: No Vision needs: No Physical Exam Vital Signs: Last Vital Signs Pulse 64 12/11/24 09:19 BP 128/82 12/11/24 09:19 Pulse Ox 98 12/11/24 09:19 Oxygen Delivery Method Room Air 12/11/24 09:19 BMI result Body Mass Index 38.3 Const General: cooperative, healthy appearing and comfortable Nutritional Appearance: obese Orientation/consciousness: patient oriented x3 Eyes Pupils: Equal, round and reactive pupils present Neuro Other: Mallampatti grade 4 General: patient oriented x3, gait normal, tone normal, moves all extremities and no focal motor deficits Cranial nerves: Yes Equal, round and reactive pupils present, Yes Bilaterally intact EOM present, Yes Nystagmus not present, Yes Normal facial strength present, Yes Midline tongue present, Yes Symmetric palate elevation present and Yes Ability to bilaterally elevate shoulders present Cognition (Neuro): normal cognition Gait exam (Neuro): Normal gait present Motor exam (neuro): 5/5 motor strength present throughout and Normal motor muscle tone present throughout Deep tendon reflexes (DTR's): Right triceps reflex intensity grade: 1+, Left triceps reflex intensity grade: 1+, Rt Biceps (C5, C6): 1+, Left biceps reflex intensity grade: 1+, Right brachioradialis reflex intensity grade: 1+, Left brachioradialis reflex intensity grade: 1+, Right patellar reflex intensity grade: 1+ and Left patellar reflex intensity grade: 2+ Coordination: ixagcy-dw-aewc test normal Results Reviewed Results Reviewed: Carotid doppler 08/27/24 RIGHT: Minimal, non-hemodynamically significant stenosis of the proximal right internal carotid artery corresponding to a 0-49% stenosis by velocity criteria. 2. LEFT: Minimal, non-hemodynamically significant stenosis of the proximal left internal carotid artery corresponding to a 0-49% stenosis by velocity criteria. MRI Brain non contrast 08/27 24 1.3 cm focus of restricted diffusion within the yousif may represent an acute infarct or focus of active demyelination. 2. Numerous T2 hyperintensities within the white matter with an appearance raising the possibility of a demyelinating process such as multiple sclerosis. 3. Inflammatory changes of the mastoid air cells. Assessment & Plan Assessment & Plan (1) Right pontine CVA: Comment: multiple risk factors - diabetes, hyperlipdiemia , obesity fh/o stroke Code(s): I63.50 - Cerebral infarction due to unspecified occlusion or stenosis of unspecified cerebral artery Category: Medical Plan Reviewed MRI - shows multiple white matter changes with ? differential of demyelination vs small vessel disease I will evaluate him with MRI with amos ,VEP to r/o MS.Continue aspirin 81mg qd atrovostatin 80mg qd. Home sleep test to r/o sleep apnea Orders: Orders RT home sleep study Today G47.10 - Hypersomnia, unspecified, R06.83 - Snoring Visual evoked potential Today I63.50 - Cerebral infarction due to unspecified occlusion or stenosis of unspecified cerebral artery MR head/brain wo/w con Today I63.50 - Cerebral infarction due to unspecified occlusion or stenosis of unspecified cerebral artery, R90.89 - Other abnormal findings on diagnostic imaging of central nervous system Coding Level of Care Code New Pt Level 4 (49250) Complex EM visit Add On G2211 Diagnoses Right pontine CVA I63.50
[2024-12-11 09:19] VITALS: BP 128/82; PULSE 64; O2SAT 98; BMI 38.3
--- OUTSIDE RECORDS SUMMARY | 2024-12-11 09:52 | XMS_ITS | Data Portability ---
Author Organization [facility], [facility] Address [address] [place] [address] Care Team Providers Care Lpn Cma Name Role Phone CHARLIE MULLER Primary Care Provider [phone] CHARLIE MULLER Referring Provider Assessment No assessment [...] For Internal Use Only, Do Not Delete/merge, 36107 7 14:18:17 x-ray, foot, 3 views 016 09/09/19 16 dpelto In-House Test, For Internal Use Only, Do Not Delete/merge, 27801 6 17:05:21 Medication Orders None recorde d. [...] no obvious signs of osteomylitis but considering intermediate project manager ulceration if concern for bone infection and [...] surgery in the future. [place] and was recommended to return to previous [...] surgery. [email or web address] Not available 08/25/2016 12:47:18 12/13/2018 [id number] Comprehensive Diabetic Foot Examination (CDFE) done today [...] care. dpelto Not available 12/13/2018 09:46:12 03/08/2019 [id number] Shoe assessment was performed today to make [...] Address Organization Details Recorded Time Foot callus 080802248 Active Jeffry Mcdaniels DPM [address], [address], [facility] 6 17:05:21 Diabetes mellitus 78868072 Active Jeffry Mcdaniels DPM [address], [address], [facility] 6 17:05:21 Diabetic foot ulcer 177860427 Active Jeffry Mcdaniels DPM [address], [address], [facility] 6 17:05:21 Metatarsalgia 95250707 Active Jeffry Mcdaniels DPM [address], [address], [facility] 6 17:05:21 Problem Notes None recorded. Procedures Surgical History Date Name Laterality Status Provider Name and Address Organization Details Recorded Time 03/08/20 19 Nail Debridement (1-5 nails) completed Jeffry Mcdaniels DPM [address], [address], [facility] 03/08/2019 08:31:44 03/08/20 19 Trimming of Nondystrophic Nails completed Jeffry Mcdaniels DPM [address], [address], [facility] 03/08/2019 08:31:47 03/08/20 19 Keratoma (5+ lesions) completed Jeffry Mcdaniels DPM [address] [facility] [address], [place], [address], [facility] 03/08/2019 08:31:58 12/14/19 19 Nail Debridement (1-5 nails) completed Jeffry Mcdaniels DPM [address] [facility] [address], [place], [address], [facility] 12/13/2018 09:43:56 12/14/19 19 Trimming of Nondystrophic Nails completed Jeffry Mcdaniels DPM [address] [facility] [address], [place], [address], [facility] 12/13/2018 09:44:01 12/14/19 19 Keratoma (2 to 4 lesions) completed Jeffry Mcdaniels DPM [address] [address], [place], [address], [facility] 12/13/2018 09:43:42 12/14/19 19 Debridement Skin/Tissue (20sq cm or less) completed Jeffry Mcdaniels DPM [address] [address], [place], [address], [facility] 12/13/2018 09:43:35 08/25/19 17 Keratoma (1 lesion) completed Jeffry Mcdaniels DPM [address] [address], [place], [address], [facility] 08/25/2016 10:24:54 08/25/19 17 Debridement Skin/Tissue (20sq cm or less) completed Jeffry Mcdaniels DPM [address] [address], [place], [address], [facility] 08/25/2016 10:24:39 04/12/20 16 Foot Surgery completed Elzbieta Garcia [facility] 10/26/2016 14:18:17 09/09/19 16 Keratoma (1 lesion) completed Jeffry Mcdaniels, JUSTINO [address] [facility] [address], [place], [address], [facility] 09/09/2015 16:07:04 09/09/19 16 Debridement Skin/Tissue (20sq cm or less) completed Jeffry Mcdaniels DPM [address] [facility] [address], [place], [address], [facility] 09/09/2015 16:07:04 04/07/20 15 Foot Surgery completed Elzbieta Garcia [facility] 10/26/2016 14:18:17 Imaging Results [...] Available Not Available Not Available vitamin d 12350 unit caps 12/13 completed Not Available Not [...] Updated DateTime 12/13/2018 177.8 cm 40.9 kg/m2 256653.83 g 0 [facility] 12/13/2018 08:57:23 Date Recorded Body height Body mass index (BMI) Body weight Pain severity - 0-10 verbal numeric rating [Score] - Reported Provider Name and Address Organization Details Last Updated DateTime 03/08/2019 177.8 cm 40.9 kg/m2 423177.83 g 0 [facility] 03/08/2019 08:07:58 Date Recorded Systolic blood pressure Diastolic blood pressure Provider Name and Address Organization Details Last Updated DateTime 03/08/2019 122 mm[Hg] 82 mm[Hg] Elba Lemus [facility] 03/08/2019 08:13:00 Date Recorded Body mass index (BMI) Body weight Body height Provider Name and Address Organization Details Last Updated DateTime 09/09/2015 40.4 kg/m2 742018.4017 g 180.34 cm Tg Pardo [facility] 09/09/2015 15:20:29 Date Recorded Body height Body weight Body mass index (BMI) Provider Name and Address Organization Details Last Updated DateTime 08/25/2016 177.8 cm 813639.83 g 40.9 kg/m2 Elzbieta SarinaRafiaJaun [facility] 10/26/2016 14:18:17 Social History Question Answer Notes LastModified by Organizat ion Details LastModified Time Tobacco Smoking Status Current Some Day Smoker Tg Pardo [facility] 09/09/2015 15:18:26 What Is Your Level Of Alcohol Consumption? Occasional Information not available 09/09/2015 Which Illicit Or Recreational Drugs Have You Used? [place] Information not available 09/09/2015 What Is Your [...] N Respiratory Disease N Circulatory Problems N Thyroid Problems N Psychiatric Care N Congenital Heart Lesions N Pacemaker N Anemia N Multiple Sclerosis N Bleeding Tendency N Deep Vein Thrombosis N Diabetes Y Varicose Veins N Rheumatic Fever N Arthritis N Seizures/Epilepsy N Heart Murmur N Blood Disease N Tuberculosis N AIDS/HIV N Cancer N Chemical Dependency N Stroke N Low Blood Pressure N Asthma N Epilepsy N Peripheral Vascular Disease N Shortness of Breath N High Cholesterol Y Mitral Valve Prolapse N Liver Disease N Heart Disease N Rheumatoid Arthritis N Foot Deformity N Fibromyalgia N Hepatitis A, B, or C N Ulcer N Kidney Disease N Past Encounters Encounter ID Performer Location Encounter Start Date Encounter Closed Date Diagnosis/Indication Diagnosis SNOMED-CT Code Diagnosis ICD10 Code Diagnosis Note [id number] Jeffry Mcdaniels DPM [facility] [address] [address] 09/09/2015 15:02:46 09/09/2015 16:19:08 Foot callus 555796275 L84 Diabetes mellitus 511395 09 E11.49 Diabetic foot ulcer 3710 34250 L97.509 Metatarsalgia 75647471 M 77.41 [id number] Jeffry Mcdaniels DPM [facility] [address] [address] 08/25/2016 09:46:28 08/25/2016 10:30:32 Keratoma 567463182 L84 Plantarfle xion deformity of foot 671184811 M21.6X2 Diabetic foot ulcer 3710 12146 E11.40 Ulcer of foot 43098469 L 97.521 [id number] Jeffry Mcdaniels DPM [facility] [address] [address] 12/13/2018 08:49:23 12/13/2018 09:49:40 Diabetes mellitus 36216749 E11.49 Type 2 daniel betes mellitus 63804847 E11.9 Foot callus 362416370 L8 4 Ulcer of foot 27124246 L 97.521 Ingrowing nail 714027985 L60.0 Foot pain 69605421 M79.6 71 M79.672 Onychomyco sis due to dermatophyte 079860991 B35.1 [id number] Jeffry Mcdaniels DPM [facility] [address] [address] 03/08/2019 07:55:18 03/08/2019 08:35:17 Diabetes mellitus 59605898 E11.49 Type 2 daniel betes mellitus 45635102 E11.9 Foot callus 278409103 L8 4 Ingrowing nail 935781949 L60.0 Foot pain 49583198 M79.6 71 M79.672 Onychomyco sis due to dermatophyte 659563321 B35.1 Health Concerns Section Related Observation LastModified by Organization Detai ls LastModified Time None Recorded Concern Status LastModified by Organization Details LastModified Time None Recorded Advance Directives Directive None Recorded Payers Encounter Date Sequence Insurance Name Policy Number Policy Mata Covered Member ID Mata Member ID Guarantor Name 09/09/2015 1 [facility] [id number] Tasia Kumari [id number] Larry Payne 08/25/2016 1 [facility] [id number] Larry Payne [id number] Larry Payne 12/13/2018 1 [facility] [id number] Tasia Costaiza [id number] Larry Payne 03/08/2019 1 [facility] ([facility]) [id number] Tasia Talamantespower [id number] Larry Payne Notes Date Note Type Note [...] the ulcers daily. Jeffry Mcdaniels DPM [address] [address], [place], [address], [facility] 09/09/2015 17:05:41 08/25/2016 text/html General [...] met head region. Jeffry Mcdaniels DPM [address], [address], [facility] 08/25/2016 12:48:51 12/13/2018 text/html Routine Foot CareReported bypatient.Location:bi lateral Severity:mild Timing:cannot identify Context:cannot identifyNotes:Patient is here for a diabetic foot exam as well as a routine visit. Jeffry Mcdaniels DPM [address], [address], [facility] 12/13/2018 09:46:48 03/08/2019 text/html Routine Foot CareReported bypatient.Location:bi lateral Severity:no pain Timing:cannot identify Context:cannot identify Aggravating Factors:cannot identify Associated Symptoms:no redness; no warmth; no ecchymosis; no drainage; no swelling; no fever; no chills; no pain with direct compressionNotes:poncho ent presents to the office for routine foot care. Jeffry Mcdaniels DPM [address], [address], [facility] 03/08/2019 08:32:56
--- OUTSIDE RECORDS SUMMARY | 2024-12-11 09:52 | XMS_ITS | Clinical Summary ---
Author Organization [employer] [facility] Address [address] [place] [address] Care Team Providers Care Bench Scientist Name Role Phone Elly Anne MD Primary Care Provider [phone] Social History Tobacco Use Types Packs/Day Years [...] - 19+ 3-dose series) 01/20/1999 COVID-19 Vaccine (2023-2 5 season) 2024 Cholesterol Screening (Lipid Panel) 05/16/2024 Depression Screening 05/16/2024 HIV Screening 05/16/2024 Hepatitis C Screening 05/16/2024 Social Influencers of Health Screening 05/16/2024 Influenza Vaccine (Season Ended) 2025 HIB Vaccines Aged Out No longer eligi [...] age to complete this topic Meningococcal B Vaccine Aged Out No l onger eligible based on patient's age to complete [...] age to complete this topic Care Teams Bench Scientist Relationship Specialty Start Date End Date Elly Anne MD [address] [place] [address] , [address] [place] [address] Physician Associ D/B/A: [facility] [place] PCP - General 01/18/24
== END 2024-12-11 10:01 | disposition home or self-care (01) ==
LOC: HO.HSMS 09:16
PROVIDERS: PCP Internal Medicine; Visit Provider Psychiatry & Neurology Neurology
DX: I63.50 Cerebral infarction due to unspecified occlusion or stenosis of unspecified cerebral artery (principal)
CPT/HCPCS: 99204

== ENCOUNTER → 2024-12-11 09:16 | Outpatient (BNVA) | payer BC, SELFPAY | PROVIDERS: PCP Internal Medicine; Visit Provider Psychiatry & Neurology Neurology ==

== ENCOUNTER → 2024-12-23 09:15 | Outpatient (BNV) | payer BC, SELFPAY | PROVIDERS: PCP Internal Medicine; Visit Provider Radiology Diagnostic Radiology | DX: R90.82 White matter disease, unspecified (principal) | CPT/HCPCS: 70553 ==

== ENCOUNTER 2024-12-23 09:22 | Outpatient (REF) | payer BC, SELFPAY ==
--- NOTE | ~2024-12-23 | MR_ITS ---
EXAMINATION: MR BRAIN WITHOUT AND WITH CONTRAST CLINICAL INFORMATION: Other abnormal findings on diagnostic imaging of the central nervous system. COMPARISON: August 26, 2024. TECHNIQUE: Multiplanar, multisequence MRI of the brain was obtained before and after the intravenous administration of 10 mL gadolinium based (Gadavist) without reported immediate complications.. FINDINGS: Bilateral, multifocal, patchy and punctate, perpendicularly oriented to the corpus callosum deep periventricular subcortical white matter hyperintense T2 FLAIR signal involving centrum semiovale and rhodes radiata. There is a 9 mm lobulated isointense FLAIR T1 and hyperintense T2 no restricted diffusion or enhancing signal abnormality centered in the right midline yousif There is a focal nonenhancing no restricted diffusion hyperintense T2 FLAIR signal, right and to a lesser extent left cerebellar middle peduncles/brachii pontis. There is a nonenhancing no restricted diffusion hyperintense T2 FLAIR signal at the cisternal segments and entry zones of the trigeminal nerves right lateral. No gross abnormal enhancing lesion and or mass in the intra-axial or the extra-axial compartment of the cranium. No acute intracranial hemorrhage, mass effect, midline shift, hydrocephalus or herniation. Flow-void signal within the main cerebral vessels is normal. No restricted diffusion. Hyperintense T2 FLAIR signal within the mastoid air cells the pneumatized petrous apices is. Sellar/suprasellar region demonstrated no signal abnormality or enhancing lesion. Craniocervical junction demonstrates normal position of the cerebellar tonsils. MR/MR head/brain wo/w con IMPRESSION: Findings concerning for demyelinating process such as multiple sclerosis with the probable tumefactive signal/lesion right mid yousif/midbrain junction. New signal abnormalities centered the trigeminal nerves and brachii pontis. No acute stroke/nonhemorrhagic ischemia. Correlated with the CSF analysis and clinical scenario. Electronically signed by: Chaparro Soni MD 12/23/2024 12:01 PM EDT
--- OUTSIDE RECORDS SUMMARY | 2024-12-23 09:39 | XMS_ITS | Data Portability ---
Author Organization [facility], [facility] Address [address] [place] [phone] Care Team Providers Care Panel Installer Name Role Phone CHARLIE MULLER Primary Care [...] For Internal Use Only, Do Not Delete/merge, [id number] 7 14:18:17 x-ray, foot, 3 views 016 09/09/19 16 [email or web address] In-House Test, For Internal Use Only, Do Not Delete/merge, [id number] 6 17:05:21 Medication Orders None recorde d. [...] no obvious signs of osteomylitis but considering terminal superintendent ulceration if concern for bone infection and [...] surgery in the future. Patient comes from [place] and was recommended to return to previous [...] surgery. [email or web address] Not available 08/25/2016 12:47:18 12/13/2018 [id number] Comprehensive Diabetic Foot Examination (CDFE) done today [...] care. [email or web address] Not available 12/13/2018 09:46:12 03/08/2019 [id number] Shoe assessment was performed today to make [...] Address Organization Details Recorded Time Foot callus 297273852 Active Jeffry Mcdaniels DPM [address], [address], [facility] 6 17:05:21 Diabetes mellitus 80963110 Active Jeffry Mcdaniels DPM [address], [phone], [facility] 6 17:05:21 Diabetic foot ulcer 027954375 Active Jeffry Mcdaniels DPM [address], [address], [facility] 6 17:05:21 Metatarsalgia 35449100 Active Jeffry Mcdaniels DPM [address], [address], [facility] 6 17:05:21 Problem Notes None recorded. Procedures Surgical History Date Name Laterality Status Provider Name and Address Organization Details Recorded Time 03/08/20 19 Nail Debridement (1-5 nails) completed Jeffry Mcdaniels DPM [address], [address], [facility] 03/08/2019 08:31:44 03/08/20 19 Trimming of Nondystrophic Nails completed Jeffry Mcdaniels DPM [address], [address], [facility] 03/08/2019 08:31:47 03/08/20 19 Keratoma (5+ lesions) completed Jeffry Mcdaniels DPM 299 [facility] [address], [place], [address], [facility] 03/08/2019 08:31:58 12/14/19 19 Nail Debridement (1-5 nails) completed Jeffry Mcdaniels DPM 299 [facility] [address], [place], [address], [facility] 12/13/2018 09:43:56 12/14/19 19 Trimming of Nondystrophic Nails completed Jeffry Mcdaniels DPM 299 [facility] [address], [place], [address], [facility] 12/13/2018 09:44:01 12/14/19 19 Keratoma (2 to 4 lesions) completed Jeffry Mcdaniels DPM [address] [address], [place], [address], [facility] 12/13/2018 09:43:42 12/14/19 19 Debridement Skin/Tissue (20sq cm or less) completed Jeffry Mcdaniels DPM 299 [address] [address], [place], [address], [facility] 12/13/2018 09:43:35 08/25/19 17 Keratoma (1 lesion) completed Jeffry Mcdaniels DPM [address] [address], [place], [address], [facility] 08/25/2016 10:24:54 08/25/19 17 Debridement Skin/Tissue (20sq cm or less) completed Jeffry Mcdaniels DPM [address] [address], [place], [address], [facility] 08/25/2016 10:24:39 04/12/20 16 Foot Surgery completed Elzbieta Garcia [facility] 10/26/2016 14:18:17 09/09/19 16 Keratoma (1 lesion) completed Jeffry Mcdaniels, JUSTINO 299 [facility] [address], [place], [address], [facility] 09/09/2015 16:07:04 09/09/19 16 Debridement Skin/Tissue (20sq cm or less) completed Jeffry Mcdaniels DPM 299 [facility] [address], [place], [address], [facility] 09/09/2015 16:07:04 04/07/20 15 Foot Surgery completed Elzbieta Garcia [facility] 10/26/2016 14:18:17 Imaging Results [...] Available Not Available Not Available vitamin d 30981 unit caps 12/13 completed Not Available Not [...] height Body mass index (BMI) Body weight Provider Name and Address Organization Details Last Updated DateTime 12/13/2018 177.8 cm 40.9 kg/m2 892438.83 g Daniel Buckner [facility] 12/13/2018 08:57:20 Date Recorded Body height Body mass index (BMI) Body weight Provider Name and Address Organization Details Last Updated DateTime 03/08/2019 177.8 cm 40.9 kg/m2 879207.83 g Daniel Buckner [facility] 03/08/2019 08:07:55 Date Recorded Systolic blood pressure Diastolic blood pressure Provider Name and Address Organization Details Last Updated DateTime 03/08/2019 122 mm[Hg] 82 mm[Hg] Elba Lemus [facility] 03/08/2019 08:13:00 Date Recorded Body mass index (BMI) Body weight Body height Provider Name and Address Organization Details Last Updated DateTime 09/09/2015 40.4 kg/m2 584424.5953 g 180.34 cm Tg Pardo [facility] 09/09/2015 15:20:29 Date Recorded Body height Body weight Body mass index (BMI) Provider Name and Address Organization Details Last Updated DateTime 08/25/2016 177.8 cm 171389.83 g 40.9 kg/m2 Elzbieta Garcia [facility] 10/26/2016 14:18:17 Social History Question Answer Notes LastModified by [employer] Details LastModified Time Tobacco Smoking Status Current Some Day Smoker Tgsilva Pardo [facility] 09/09/2015 15:18:26 Which Illicit Or Recreational Drugs Have You Used? [place] [email or web address] Information not available 09/09/2015 What Is Your Shoe Size & Width? 14 Information not available 09/09/2015 Marital Status Informatio n not available 10/26/2016 What Was The Date Of Your Most Recent Tobacco Screening? 12/13/2018 Information not available 02/28/2019 How Much Tobacco Do You Smoke? 1 PPW Information not available 09/09/2015 How Many Years Have You Smoked Tobacco? 0 Information not available 10/26/2016 Sex: Unknown Functional Status Question Answer Note LastModified by [employer] Details LastModified Time What is your level of alcohol consumption? Occasional Information not available 09/09/2015 What is your occupation? Unknown Information not available 10/26/2016 Mental Status None recorded. Family History Relationship [...] [id number] Jeffry Mcdaniels DPM [facility] [address] [address] 09/09/2015 15:02:46 09/09/2015 16:19:08 Foot callus 663871889 L84 Diabetes mellitus 223152 09 E11.49 Diabetic foot ulcer 3710 60538 L97.509 Metatarsalgia 73770106 M 77.41 [id number] Jeffry Mcdaniels DPM [facility] [address] [address] 08/25/2016 09:46:28 08/25/2016 10:30:32 Keratoma 382966354 L84 Plantarfle xion deformity of foot 155478222 M21.6X2 Diabetic foot ulcer 3710 48672 E11.40 Ulcer of foot 31697067 L 97.521 95515 Jeffry Mcdaniels DPM [facility] [address] [address] 12/13/2018 08:49:23 12/13/2018 09:49:40 Diabetes mellitus 68652834 E11.49 Type 2 daniel betes mellitus 53493698 E11.9 Foot callus 041797983 L8 4 Ulcer of foot 60000887 L 97.521 Ingrowing nail 798031064 L60.0 Foot pain 18219283 M79.6 71 M79.672 Onychomyco sis due to dermatophyte 998205743 B35.1 [id number] Jeffry Mcdaniels DPM [facility] [address] [address] 03/08/2019 07:55:18 03/08/2019 08:35:17 Diabetes mellitus 60826432 E11.49 Type 2 daniel betes mellitus 29206791 E11.9 Foot callus 592340604 L8 4 Ingrowing nail 124196768 L60.0 Foot pain 21473386 M79.6 71 M79.672 Onychomyco sis due to dermatophyte 104686714 B35.1 Health Concerns Section Related Observation LastModified by Organization Detai ls LastModified Time None Recorded Concern Status LastModified by Organization Details LastModified Time None Recorded Advance Directives Directive None Recorded Payers Encounter Date Sequence Insurance Name Policy Number Policy Mata Covered Member ID Mata Member ID Guarantor Name 09/09/2015 1 [facility] [id number] Tasia Kumari [id number] Larry Payne 08/25/2016 1 [facility] [id number] Larry Payne [id number] aLrry Payne 12/13/2018 1 [facility] [place] [id number] Tasia Igoriza [id number] Larry Payne 03/08/2019 1 [employer] [facility] [place] [id number] Tasia Igorecepower [id number] Larry Payne Notes Date Note Type Note Provider Name and Address Organization Details Recorded Time 09/09/2015 text/html Foot [facility] d [facility]Patient has chronic ulcer to the right plantar [...] on the ulcers daily. Jeffry Mcdaniels DPM [address] [place] [address], [phone], [facility] 09/09/2015 17:05:41 08/25/2016 text/html General [...] met head region. Jeffry Mcdaniels DPM 299 [address] [address], [place], [address], [facility] 08/25/2016 12:48:51 12/13/2018 text/html Routine Foot CareReported bypatient.Location:bi lateral Severity:mild Timing:cannot identify Context:cannot identifyNotes:Patient is here for a diabetic foot exam as well as a routine visit. Jeffry Mcdaniels DPM [address] [address], [place], [address], [facility] 12/13/2018 09:46:48 03/08/2019 text/html Routine Foot CareReported bypatient.Location:bi lateral Severity:no pain Timing:cannot identify Context:cannot identify Aggravating Factors:cannot identify Associated Symptoms:no redness; no warmth; no ecchymosis; no drainage; no swelling; no fever; no chills; no pain with direct compressionNotes:poncho ent presents to the office for routine foot care. Jeffry Mcdaniels DPM 299 [address] [address], [place], [address], [facility] 03/08/2019 08:32:56
--- OUTSIDE RECORDS SUMMARY | 2024-12-23 09:39 | XMS_ITS | Clinical Summary ---
Author Organization [facility] Address [address] [place] [phone] Care Team Providers Care Marine Equipment Test Engineer Name Role Phone Elly Anne MD Primary Care Provider [phone] Social History Tobacco Use Types Packs/Day Years [...] age to complete this topic Care Teams Marine Equipment Test Engineer Relationship Specialty Start Date End Date Elly Anne MD [address] [place] [address] , [address] [place] [address] Physician Associ D/B/A: [facility] CELESTE Ogden PCP - General 01/18/24
[2024-12-23] MEDS: gadobutroL 10 ML VIAL IVPUSH (11:00)
== END 2024-12-23 09:23 | disposition home or self-care (01) ==
LOC: HO.MRI 09:22
PROVIDERS: PCP Internal Medicine; Visit Provider Psychiatry & Neurology Neurology
DX: R90.89 Other abnormal findings on diagnostic imaging of central nervous system (principal); I63.50 Cerebral infarction due to unspecified occlusion or stenosis of unspecified cerebral artery
CPT/HCPCS: 70553; A9585

== ENCOUNTER 2025-01-09 12:17 | Outpatient (AMB) | payer BC, SELFPAY ==
--- NOTE | 2025-01-09 08:04 | MHC.OFFVIS ---
Vital Signs 01/09/25 12:22 Height 5 ft 10 in Weight 269 lb 10.005 oz BMI 38.7 BP 110/70 Blood Pressure Location Rt brachial Position Sitting Pulse 71 Pulse Source Pulse Oximeter Pulse Oximetry (%) 97 Oxygen Delivery Method Room Air Intake Visit Reasons: DM Intake Note: Patient presents today for a follow-up on Type 2 Diabetes Mellitus: Last Diabetic eye exam was on: DUE, last visit 10/28 Last Podiatry exam was on: 12/2024 Most recent HbA1c: 6.9%, 10/24/2024 Random Glucose- _125__ mg/dL, Today Knotter Hand Name: fifi Márquez Information Interpreted: non-clinical & clinical Accompanied by: Self / Same As Patient Allergies No Known Allergies [No Known Allergies*] Allergy (Verified 01/09/25 12:20) HPI Comments Details: 44 yo male today for followup for DM 1 He was last seen in endocrine clinic 08/26/24. Hemoglobin A1c 10/24/24 6.9% He has been on a pump since approx 2017. Diagnosed in 1999 in DKA. He is feeling well. Backup pump plan Lantus 28 units Humalog 4-5 units t.i.d. with meals Dexcom average glucose: 126 14 day continuous glucose monitor report reviewed Glucose Managment indicator 6.3 % Days with CGM data [ ] % TIme in ranges: 0 % very high (above 250) 6 % high ?(181-250) 93e% in range ?(70-180] mild lows <1% Less than 1 % low (69-55) Interpretation: In excellent range without substantial lows For some reason his glucose entries/sensor data is not being imported to the printed report Total daily dose of insulin 45 units Basal 65% 29 units Bolus 35% 16 units Average carb entry 144 with 3 meal boluses daily Basal rate(s) (units/hour) : 12 AM? to 2 AM 1.35 units / hr 2 AM? to 11 AM 1.35 units / hr 11 AM to 4 PM 1.1 units / hr 4 PM to 12 AM 1.13 units / hr Bolus setting 12 AM? to 2 AM 1: 10 2 AM? to 12 AM 1:9 Correction Factor / Sensitivity Factor 12 AM? to 2 AM 1:40 2 AM? to 4 PM 1:35 4 PM to 12 AM 1:40 Control IQ Active Insulin Time:? 5 hours Control IQ Target(s): 12 AM? to 12 AM 110 mg/dL Patient is on basal IQ tandem with the dexcom G6. He has DM type 1 diagnosed at age 23. He has Other PMH of hyperlipidemia, hypertension. 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 sees pod every 2 months Has retinopathy(hypertensive) but no known nephropathy or macrovascular disease. Rare hypoglycemia Last opth: 08/30 Hypertensive retinopathy he will schedule Podiatry every 2 months, checks feet daily does not walk barefoot ultrsound 05/25 Right Thyroid Lobe: 5.9 x 3.0 x 2.5 cm, volume 23.1 mL. Parenchyma: The gland echotexture is homogeneous. Thyroid vascularity is normal. Left Thyroid Lobe: 4.7 x 2.3 x 2.3 cm, volume 13.0 mL. Parenchyma: The gland echotexture is homogeneous. Thyroid vascularity is normal. Isthmus: 1.2 cm in maximum AP dimension. RIGHT THYROID LOBE: There is 1 nodule seen. 1. Location: Low/lateral. Size: 0.4 x 0.2 x 0.3 cm. Nodule characteristics: Hypoechoic and complex cystic, smooth margins, small calcification and no intranodular flow. Ultrasound appearance is suggestive of a colloid cyst. ISTHMUS: There is 1 nodule seen. 1. Location: Isthmus. Size: 0.6 x 0.3 x 0.6 cm. Nodule characteristics: Heterogeneous, smooth margins, no calcification and minimal peripheral flow. Question lobulated contour of the isthmus versus isoechoic nodule. This measures 1.1 x 1.4 cm in AP and transverse dimension. This is isoechoic, no calcification and demonstrates minimal flow. This is not well visualized sagittally for measurement. LEFT THYROID LOBE: There is 1 nodule seen. 1. Location: Mid. Size: 0.4 x 0.3 x 0.4 cm. Nodule characteristics: Hypoechoic and cystic, smooth margins, no calcification and no intranodular flow. NODES: No lymphadenopathy is seen in the tissue surrounding the thyroid gland. 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 Paternal Grandmother Diabetes Paternal Uncle Diabetes Family/Other Mental health disorder Social History Household Members: Spouse Housing: House Do you presently have visiting nurse or other home services: No Alcohol intake: current Alcohol intake frequency: holidays/special occasions only Alcohol type: beer Patient Tobacco Use Status: Current everyday Tobacco user Tobacco use type: Cigarette Cigarette Packs Per Day: 0.5 Cigarettes Per Day: 10 e-Cigarette/Vaping Use: Never Used Second Hand Smoke Exposure: Yes Substance Use Type: Marijuana service: No Current occupational status: employed Current occupational exposures/hazards: No Cognitive needs: No Hearing needs: No Vision needs: No Physical Exam Vital Signs: Last Vital Signs Pulse 71 01/09/25 12:22 BP 110/70 01/09/25 12:22 Pulse Ox 97 01/09/25 12:22 Oxygen Delivery Method Room Air 01/09/25 12:22 BMI result Body Mass Index 38.7 Const Other: Absence of Cushingoid features. Absence of acromegalic features. Neck exam reveals nl size thyroid about 15 gms. No thyroid nodules palpable. Heart S1 S2, Reg R/R. No M/R G. Skin exam reveals absence of vitiligo or acanthosis nigricans. Visual exam of foot performed. No ulcerations or open lesions. No inter digit maceration or fissuring. No onychomycosis, no callouses. Sensation intact to monofilament exam. Vibratory sensation is normal with 128 Hz tuning fork. No open areas or ulcers. Left foot 3rd and 4th toes have been amputated, right foot 5th toe and half of 2nd toe. Assessment & Plan Assessment & Plan (1) Diabetes type 1, controlled: Code(s): E10.9 - Type 1 diabetes mellitus without complications Category: Medical Qualifiers: Diabetes mellitus complication status: with neurologic complications Diabetes mellitus complication detail: with polyneuropathy Qualified Code(s): E10.42 - Type 1 diabetes mellitus with diabetic polyneuropathy Plan: 44-year-old type 1 diabetic with nephropathy, hypertensive retinopathy and neuropathy with prior history of toe amputations with a recent A1c of 6.9%. We spent a good part of today's visit going up backup insulin pump failure plan and reviewing diabetic ketoacidosis. One month written handout in [place] given for DKA. He will follow up with Katie streeter as his pump download does not include actual glucose readings and I needed to get these directly from his phone clarity cb. He will see a provider in 3 months Medications: New insulin lispro (Humalog U-100 Insulin) up to 80 units daily via pump subcutaneously every 4 hours; administer with tube feeding 30 days 30 mL 6RF MDD 80 units pen needle, diabetic As directed daily 50 ea 6RF Lantus Solostar U-100 Insulin (insulin glargine) 30 units (0.3 mL) subcut DAILY 30 days PRN 6 mL 2RF pump failure MDD 30 units NS Changed From acetone (urine) test (Ketone Urine Test strips) As directed 25 ea 1RF Glucose 250, illness, nausea and vomiting E10.42 - Type 1 diabetes mellitus with diabetic polyneuropathy To acetone (urine) test (Ketone Urine Test strips) tid prn glucose over 250, nausea or vomiting 25 ea 1RF Glucose 250, illness, nausea and vomiting E10.42 - Type 1 diabetes mellitus with diabetic polyneuropathy Refilled blood-glucose sensor (Dexcom G7 Sensor device) As directed change every 10 days 3 ea 11RF Patient Instructions: Symptoms of DKA (diabetic ketoacidosis): early: frequent urination, dry mouth, fatigue, feeling ill, severe symptoms: ketones in the urine, abdominal pain, nausea, vomiting and weakness. It is important to hydrate with sugar free liquids every 15-30 minutes and bring the sugars down to normal levels. If you are moderate or severe with ketones or unable to bring glucose to less than 200, go to the emergency room. Troubleshooting after starting new pod or inserting new insulin set: Occlusion, adhesive tape sensitivity, redness Check BG 2 hours after site change Safety information: Importance of a backup plan, for manual injections, proper prescriptions and emergency supplies ketone strips, and rules for testing for ketones Coding Level of Care Code Est Pt Level 4 (49842) Complex EM visit Add On G2211 Diagnoses Controlled type 1 diabetes mellitus with diabetic polyneuropathy E10.42 Diabetes mellitus complication status: with neurologic complications Diabetes mellitus complication detail: with polyneuropathy Time Spent (min) 30 Comment Time spent reviewing labs/provider notes, face to face, chart doc
[2025-01-09 12:22] VITALS: BP 110/70; PULSE 71; O2SAT 97; BMI 38.7
[2025-01-09 12:35] LABS: Glucose, Whole Blood 125 mg/dL (60-115)
--- OUTSIDE RECORDS SUMMARY | 2025-01-09 14:22 | XMS_ITS | Patient Health Record ---
[facility] Address [address] [place] [address] Care Team Providers Care Mixer Slagman Name Role Phone Bruna REINA, Elly Primary Care Provider Unavail able Danyajames Nichelle Unavailable [phone] Reason For Referral No Information Medications Medication SIG (Take, Route, Frequency, Duration) Notes Start Date End Date Status Keflex 500 MG 1 capsule Orally cary ry 12 hrs for 10 day(s) 02/03/2016 Not-Taking Adair Contour Next Test In Vitro for 56 Active Alpha Lipoic Acid 200 MG Orally Active Extra Depth Orthopedic Shoes (1 Pair) with Customized Heat Molded Multidensity Innersoles (3 Pair) as directed Dx: IDDM/Polyneuropathy (E10.42), Hammertoe Foot Deformity (M20.41,M20.42), Preulcerative Skin Lesion(s) (L85.1) 06/20/2016 Active Zolpidem Tartrate 10 MG 1 tablet at bedt kelsey as needed Orally Once a day Active OXcarbazepine 300 MG Orally Active HumaLOG 100 UNIT/ML Subcutaneous for 30 Active Atorvastatin Calcium 20 MG Oral for 30 Active Immunizations Vaccine Route Administration Date Status Comme nts Influenza Unknown 05/21/2015 Administered Influenza Unknown 04/18/2016 Administered Pneumococcal Unknown 05/21/2015 Administered Social History Tobacco use other than smoking: Question Answer Notes Are you an other tobacco user? No Section Notes: A1C 6.9 08/2015 Flu Shot 04/2015 Pneumonia Shot 04/2015 Eye Exam 05/2015 A1C 6.9 08/2015 Flu Shot 04/2015 Pneumonia Shot 04/2015 Eye Exam 05/2015 Problems Problem Type SNOMED Code ICD Code Onset Dates Problem Status W/U Status Risk Notes Problem Polyneuropathy due to diabetes mellitus type I (838260506) Type 1 diabetes mellitus with diabetic polyneuropathy (E10.42) Active confirmed Problem Acquired hallux valgus (27567379) Hallux valgus (acquired), right foot (M20.11) Active confirmed Problem Metatarsalgia of right foot (296323383850300) Metatarsalgia, right foot (M77.41) Active confirmed Problem Metatarsalgia of left foot (136720750725788) Metatarsalgia, left foot (M77.42) Active confirmed Problem Non-pressure ulcer of left lower extremity, limited to breakdown of skin (L97.921) Active confirmed Plan Of Treatment Pending Test Test Name Order Date [id number] NAIL, 6 OR MORE 09/23/2015 63627-BMKDAIM NAIL, 6 OR MORE 07/20/2015 54048-XCNLBQN NAIL, 6 OR MORE 01/13/2016 74401-QEZRWIB NAIL, 6 OR MORE 06/20/2016 87111-JJUQNUS NAIL, 6 OR MORE 09/05/2016 87428-RAXMQBX NAIL, 6 OR MORE 11/07/2016 75503-TVWGTSQ NAIL, 6 OR MORE 01/30/2017 05529-QSWFXBP NAIL, 6 OR MORE 04/12/2017 23696-Brfy Destruction, 1-06/10/2015 40763-Wynj Destruction, 1-14 06/29/2015 49291- Debride <25 sq cm 06/29/2015 58972- Debride <25 sq cm 06/10/2015 08694- Debride <25 sq cm 09/23/2015 20300- Debride <25 sq cm 01/13/2016 48767- Debride <25 sq cm 04/12/2017 86120- Debride <25 sq cm 11/24/2016 86649-FRMMCAD SKIN/TISSUE 11/17/2016 76532-PTACTNT SKIN/TISSUE 02/03/2016 84242-VRBS SKIN LESIONS, OVER 4 06/20/20 16 57520-URQJ SKIN LESIONS, OVER 4 07/20/20 15 15618-USJK SKIN LESIONS, OVER 4 05/11/20 15 73239-QMKD SKIN LESIONS, OVER 4 01/31/20 17 06838-FOHP SKIN LESIONS, OVER 4 04/12/20 17 12240-ODDU SKIN LESIONS, OVER 4 11/08/19 17 61335-LYIK SKIN LESIONS, OVER 4 09/05/19 17 35074-UKXD SKIN LESIONS, 2 TO 4 09/23/19 16 42870-XSVV SKIN LESIONS, 2 TO 4 10/14/19 16 74137-MUYN SKIN LESIONS, 2 TO 4 11/30/19 16 31048-PIAP SKIN LESIONS, 2 TO 4 01/13/20 16 47390-KCOZ SKIN LESIONS, 2 TO 4 02/03/20 16 Insurance Providers Payer Name Payer Address Payer Phone Subscriber Number Group Number Insured Name Patient Relationship to Insured Coverage Start Date Coverage End Date [facility] [address] [place] [address] [id number] Tasia Kumari Spouse - patient is the spouse of the insured Medical (General) History Medical History History ICD Code Diabetes mellitus Cholesterol Surgical History Surgery Date(Month/Year) amputation, toe - infection 04/12/15 Hospitalization History Reason Date(Month/Year) Right toe amputation 04/2015
== END 2025-01-09 13:02 | disposition home or self-care (01) ==
LOC: HO.ENCR 12:18
PROVIDERS: PCP Internal Medicine; Visit Provider Nurse Practitioner Adult Health
DX: E10.42 Type 1 diabetes mellitus with diabetic polyneuropathy (principal)
CPT/HCPCS: 99214

== ENCOUNTER → 2025-01-09 12:17 | Outpatient (BNVA) | payer BC, SELFPAY | PROVIDERS: PCP Internal Medicine; Visit Provider Nurse Practitioner Adult Health | DX: E10.42 Type 1 diabetes mellitus with diabetic polyneuropathy (principal); E10.319 Type 1 diabetes mellitus with unspecified diabetic retinopathy without macular edema; E78.5 Hyperlipidemia, unspecified; I10 Essential (primary) hypertension; Z89.422 Acquired absence of other left toe(s); Z89.421 Acquired absence of other right toe(s); Z96.41 Presence of insulin pump (external) (internal); Z79.4 Long term (current) use of insulin | CPT/HCPCS: 82947 ==

== ENCOUNTER → 2025-02-13 13:57 | Outpatient (REF) | payer BC, SELFPAY ==
--- OUTSIDE RECORDS SUMMARY | 2025-02-13 14:04 | XMS_ITS | Patient Health Record ---
[facility] Address [address] [place] [address] Care Team Providers Care Clothing Sales Assistant Name Role Phone Bruna REINA, Elly Primary Care Provider Unavail able Danyajames Nichelle Unavailable [phone] Reason For Referral No Information Medications Medication SIG (Take, Route, Frequency, Duration) Notes Start Date End Date Status Keflex 500 MG 1 capsule Orally cary ry 12 hrs; Duration: 10 day(s) 02/03/2016 Not-Taking Adair Contour Next Test In Vitro; Duration: 56 Active Alpha Lipoic Acid 200 MG Orally Active Extra Depth Orthopedic Shoes (1 Pair) with Customized Heat Molded Multidensity Innersoles (3 Pair) as directed Dx: IDDM/Polyneuropathy (E10.42), Hammertoe Foot Deformity (M20.41,M20.42), Preulcerative Skin Lesion(s) (L85.1) 06/20/2016 Active Zolpidem Tartrate 10 MG 1 tablet at bedt kelsey as needed Orally Once a day Active OXcarbazepine 300 MG Orally Active HumaLOG 100 UNIT/ML Subcutaneous; Durati on: 30 Active Atorvastatin Calcium 20 MG Oral; Duration: 30 Active Immunizations Vaccine Route Administration Date [...] Polyneuropathy due to diabetes mellitus type I (015350619) Type 1 diabetes mellitus with diabetic polyneuropathy (E10.42) Active confirmed Problem Acquired hallux valgus (99490668) Hallux valgus (acquired), right foot (M20.11) Active confirmed Problem Metatarsalgia of right foot (915141008087020) Metatarsalgia, right foot (M77.41) Active confirmed Problem Metatarsalgia of left foot (308431533991389) Metatarsalgia, left foot (M77.42) Active confirmed Problem Non-pressure ulcer of left lower extremity, limited to breakdown of skin (L97.921) Active confirmed Plan Of Treatment Pending Test Test Name Order Date [id number]-SNYUEFY NAIL, 6 OR MORE 09/23/2015 09894-IGYRYFZ NAIL, 6 OR MORE 07/20/2015 45650-WXOGXAS NAIL, 6 OR MORE 01/13/2016 66036-ASHVBYZ NAIL, 6 OR MORE 06/20/2016 47111-CFMLVXH NAIL, 6 OR MORE 09/05/2016 46521-ZYRGKVC NAIL, 6 OR MORE 11/07/2016 46900-PNVLNSG NAIL, 6 OR MORE 01/30/2017 52214-DBRXTYU NAIL, 6 OR MORE 04/12/2017 19834-Sqrp Destruction, 1-06/10/2015 85950-Amkd Destruction, 1-14 06/29/2015 47835- Debride <25 sq cm 06/29/2015 05394- Debride <25 sq cm 06/10/2015 71005- Debride <25 sq cm 09/23/2015 89455- Debride <25 sq cm 01/13/2016 79524- Debride <25 sq cm 04/12/2017 20206- Debride <25 sq cm 11/24/2016 99045-KUNKPDX SKIN/TISSUE 11/17/2016 91759-JBBEIIC SKIN/TISSUE 02/03/2016 99219-NJDL SKIN LESIONS, OVER 4 06/20/20 16 14563-TCPQ SKIN LESIONS, OVER 4 07/20/20 15 17631-FWJT SKIN LESIONS, OVER 4 05/11/20 15 13761-IDDM SKIN LESIONS, OVER 4 01/31/20 17 84763-OZCU SKIN LESIONS, OVER 4 04/12/20 17 89617-GWTH SKIN LESIONS, OVER 4 11/08/19 17 08468-OFFU SKIN LESIONS, OVER 4 09/05/19 17 86873-YPGF SKIN LESIONS, 2 TO 4 09/23/19 16 63403-CPYC SKIN LESIONS, 2 TO 4 10/14/19 16 67211-KJCF SKIN LESIONS, 2 TO 4 11/30/19 16 82175-OHIQ SKIN LESIONS, 2 TO 4 01/13/20 16 57848-NJLF SKIN LESIONS, 2 TO 4 02/03/20 16 Insurance Providers Payer Name Payer Address Payer Phone Subscriber Number Group Number Insured Name Patient Relationship to Insured Coverage Start Date Coverage End Date [facility] [address] [place] [address] [id number] Tasia Kumari Spouse - patient is the spouse of the insured Medical (General) History Medical History History ICD Code Diabetes mellitus Cholesterol Surgical History Surgery Date(Month/Year) amputation, toe - infection 04/12/15 Hospitalization History Reason Date(Month/Year) Right toe amputation 04/2015
--- OUTSIDE RECORDS SUMMARY | 2025-02-13 14:04 | XMS_ITS | Clinical Summary ---
Author Organization [facility] Address [address] [place] [address] Phone Care Team Providers Care French Binder Name Role Phone Elly Anne MD Primary Care Provider [phone] Allergies No known active allergies Medications insulin lispro 100 unit/mL injection Inject under the skin 1 (one) time each day. 5 Active Dexcom G7 Sensor device USE DIRECTED TO CHECK BLOOD SUGAR CHANGE EVERY 10 DAYS 5 Active Lantus Solostar U-100 Insulin 100 unit/mL (3 mL) injection pen INJECT 30 UNITS SUBCUTANEOUS EVERY DAY NEEDED FOR PUMP FAILURE 5 Active ergocalciferol (VITAMIN D-2) 1,250 mcg (50,000 unit) capsule Take 1 capsule (50,000 Units total) by mouth 1 (one) time per week. 4 each 5 01/15/20 Active Encounters Date Type Department Care Team Description 01/30/2025 3:17 PM EDT - 01/30/2025 11:59 PM EDT Hospital Encounter [facility] [address] [place] [id number] Multiple sclerosis (CMS/HCC V24, CMS/HCC V28) Discharge Disposition: Home or Self Care 01/30/2025 3:16 PM EDT - 01/30/2025 11:59 PM EDT Hospital Encounter [facility] MRI [address] [place] [phone] Multiple sclerosis (CMS/HCC V24, CMS/HCC V28) Discharge Disposition: Home or Self Care 01/13/2025 2:00 PM EDT Consult [facility] [address] [facility] [address] [place] [phone] Rohit Platt MD 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); Multiple sclerosis (CMS/HCC V24, CMS/HCC V28) from Last 3 Months Social History Tobacco Use Types Packs/Day Years Used Date Smoking Tobacco: Never Assessed Sex and Gender Information Value Date Recorded Sex Assigned at Not on file Legal Sex Male 3:43 PM EDT Gender Identity Not on file Sexual Orientation Not on file Last Filed Vital Signs Vital Sign Reading Time Taken Comments Blood Pressure 136/81 01/13/2025 2:07 PM EDT Pulse 91 01/13/2025 2:07 PM EDT Temperature - - Respiratory Rate - - Oxygen Saturation 96% 01/13/2025 2:07 PM EDT Inhaled Oxygen Concentration - - Weight 121 kg (267 lb) 01/13/2025 2:07 PM EDT Height 177.8 cm (5' 10 ) 01/13/2025 2:07 PM EDT Body Mass Index 38.31 01/13/2025 2:07 PM EDT Plan of Treatment Upcoming Encounters Date Type Department Care Team (Late st Contact Info) Description 04/15/2025 4:00 PM EDT Office Visit [facility] [address] [facility] [address] [place] [phone] Rohit Platt MD 175 [facility] [address] [place] [phone] Health Maintenance Due Date Last Done Comments Diabetes: Annual Foot Exam 01/20/1990 Diabetes: Annual Retina Eye Exam 01/20/1990 DTaP,Tdap,and Td Vaccines (1 - Tdap) 01/20/1999 Hepatitis B Vaccines (1 of - 19+ 3-dose series) 01/20/1999 COVID-19 Vaccine (2023-2 5 season) 2024 04/23/2021, 04/02/2021 Cholesterol Screening (Lipid Panel) 05/16/2024 Colorectal Cancer Screening: Colonoscopy 05/16/2024 Depression Screening 05/16/2024 HIV Screening 05/16/2024 Hepatitis C Screening 05/16/2024 Social Influencers of Health Screening 05/16/2024 Diabetes: Annual Urine Albumin-Creatinine Ratio (uACR) 01/14/2025 Diabetes: Blood Sugar Contro l Test (HGBA1C) 01/14/2025 Influenza Vaccine (#1) 2025 07/06/2016 Diabetes: Annual GFR (Glomerular Filtration Rate) 01/13/2026 01/13/2025 HIB Vaccines Aged Out No longer eligi [...] age to complete this topic Pneumococcal Vaccine: Pediatrics (0 to 5 Years) and At-Risk Patients (6 to 49 Years) Aged Out No longer eligible b ased on patient's age to complete this topic RSV Immunization Patients Under 20 months Aged Out No longer eligible b ased on patient's age to complete this topic Varicella Vaccines Aged Out No longer eligible based on patient's age to complete this topic Procedures Procedure Name Priority Date/Time Associated Diagnosis Comments MR CERVICAL SPINE WO AND W CONTRAST Routine 01/30/2025 6:11 PM EDT Multiple sclerosis ([facility] V24, [facility] V28) MR THORACIC SPINE WO AND W CONTRAST Routine 01/30/2025 6:10 PM EDT Multiple sclerosis (CMS/HCC V24, CMS/HCC V28) CBC WITH AUTO DIFFERENTIAL Routine 01/13/2025 3:30 PM EDT Multiple sclerosis ([facility] V24, CMS/[facility] V28) VITAMIN B12 Routine 01/13/2025 3:30 PM EDT Multiple sclerosis ([facility] V24, CMS/[facility] V28) VITAMIN D 25 HYDROXY Routine 01/13/2025 3:30 PM EDT Multiple sclerosis (CMS/HCC V24, CMS/HCC V28) CREATININE, SERUM Routine 01/13/2025 3:3 0 PM EDT Multiple sclerosis (CMS/HCC V24, CMS/HCC V28) BUN Routine 01/13/2025 3:30 PM EDT Multiple sclerosis (CMS/HCC V24, CMS/HCC V28) CBC AND DIFFERENTIAL Routine 01/13/2025 3:30 PM EDT Multiple sclerosis (CMS/HCC V24, CMS/HCC V28) BORRELIA BURGDORFERI ANTIBODY Routine 01/13/2025 3:30 PM EDT Multiple sclerosis (CMS/HCC V24, CMS/HCC V28) JCV POLYOMA VIRUS ANTIBODY WITH REFLEX TO INHIBITION ASSAY Routine 01/13/2025 3:30 PM EDT Multiple sclerosis (CMS/HCC V24, CMS/HCC V28) MYELIN OLIGODENDROCYTE GLYCOPROTEIN ANTIBODY WITH REFLEX TO TITER Routine 01/13/2025 3:30 PM EDT Multiple sclerosis (CMS/HCC V24, CMS/HCC V28) NEUROMYELITIS OPTICA, [id number] Routine 01/13/2025 3:30 PM EDT Multiple sclerosis (CMS/HCC V24, CMS/HCC V28) ELLY IFA WITH TITER AND PATTERN Routine 01/13/2025 3:30 PM EDT Multiple sclerosis (CMS/HCC V24, CMS/HCC V28) RHEUMATOID FACTOR Routine 01/13/2025 3:3 0 PM EDT Multiple sclerosis (CMS/HCC V24, CMS/HCC V28) SJOGRENS ANTIBODIES, SSA AND SSB Routine 01/13/2025 3:30 PM EDT Multiple sclerosis (CMS/HCC V24, CMS/HCC V28) HEPATIC FUNCTION PANEL Routine 3:30 PM EDT Multiple sclerosis (CMS/HCC V24, CMS/HCC V28) from Last 3 Months Results * MR Cervical Spine wo and w Contrast (01/30/2025 6:11 PM EDT) Anatomical Region Laterality Modality C-spine, Spine Magnetic Resonan ce 02/10/2025 2:53 PM EDT Impressions 02/10/2025 3:17 PM EDT Normal appearance of the cervical cord. -------- FINAL REPORT -------- Dictated By: Cordell Thompson Dictated Date: 02/10/2025 14:53 ET Assigned Physician: Cordell Thompson Reviewed and Electronically Signed By: Cordell Thompson Signed Date: 02/10/2025 15:17 ET Workstation ID: [id number] Transcribed By: Self Edit Transcribed Date: 02/10/2025 14:58 ET Narrative 02/10/2025 3:17 PM EDT PROCEDURE: MRI of the cervical spine with intravenous contrast. HISTORY: white matter lesion ? cva vs demyelination. COMPARISON: None. TECHNIQUE: Sagittal and axial multisequence MRI of the cervical spine with and without intravenous contrast. IV contrast dose: 20 mL intravenous Dotarem from a 20 mL vial with 0 mL discarded. FINDINGS: There is T2 signal abnormality in the right superior cerebellum with a small cystic-appearing area which is suspected to represent sequela of a remote small vessel infarct, but is incompletely evaluated on this study. Moderate fluid in mastoid air cells bilaterally. Ectasia of the left V4 segment indents the left anterior medulla. Paraspinous soft tissues are normal. Postcontrast images are limited by motion. There is no appreciable abnormal cord enhancement. The cervical cord appears normal in caliber and signal. There is a hemangioma in the C6 vertebral body. No suspicious marrow infiltrative lesion. Alignment is normal. Cervical disc levels: C2-3: No significant disc or facet abnormality. No spinal or foraminal stenosis. C3-4: Minimal right-sided uncovertebral spurring. No spinal or foraminal stenosis. C4-5: Minimal endplate irregularity. No spinal or foraminal stenosis. C5-6: Minimal endplate irregularity. Minimal anterior endplate osteophytes. No spinal or foraminal stenosis. C6-7: Minimal bilateral uncovertebral spurring. Minimal anterior endplate osteophytes. No spinal or foraminal stenosis. C7-T1: Moderate endplate irregularity. No spinal or foraminal stenosis. Procedure Note Cordell Thompson MD - 02/10/2025 PROCEDURE: MRI of the cervical spine with intravenous contrast. HISTORY: white matter lesion ? cva vs demyelination. COMPARISON: None. TECHNIQUE: Sagittal and axial multisequence MRI of the cervical spine withand without intravenous contrast. IV contrast dose: 20 mL intravenous Dotarem from a 20 mL vial with 0 mLdiscarded. FINDINGS: There is T2 signal abnormality in the right superior cerebellum with asmall cystic-appearing area which is suspected to represent sequela of aremote small vessel infarct, but is incompletely evaluated on this study.Moderate fluid in mastoid air cells bilaterally. Ectasia of the left [id number] indents the left anterior medulla. Paraspinous soft tissues are normal. Postcontrast images are limited by motion. There is no appreciableabnormal cord enhancement. The cervical cord appears normal in caliberand signal. There is a hemangioma in the C6 vertebral body. No suspicious marrowinfiltrative lesion. Alignment is normal. Cervical disc levels: C2-3: No significant disc or facet abnormality. No spinal or foraminalstenosis. C3-4: Minimal right-sided uncovertebral spurring. No spinal or foraminalstenosis. C4-5: Minimal endplate irregularity. No spinal or foraminal stenosis. C5-6: Minimal endplate irregularity. Minimal anterior endplateosteophytes. No spinal or foraminal stenosis. C6-7: Minimal bilateral uncovertebral spurring. Minimal anterior endplateosteophytes. No spinal or foraminal stenosis. C7-T1: Moderate endplate irregularity. No spinal or foraminal stenosis. IMPRESSION: Normal appearance of the cervical cord. -------- FINAL REPORT -------- Dictated By: Cordell Thompson Dictated Date: 02/10/2025 14:53 ET Assigned Physician: Cordell Thompson Reviewed and Electronically Signed By: Cordell Thompson Signed Date: 02/10/2025 15:17 ET Workstation ID: [id number] Transcribed By: Self Edit Transcribed Date: 02/10/2025 14:58 ET us Rohit Platt MD IMG MRI PROCEDURES Final Result * MR Thoracic Spine wo and w Contrast (01/30/2025 6:10 PM EDT) Anatomical Region Laterality Modality T-spine, Spine Magnetic Resonan ce 02/10/2025 2:58 PM EDT Impressions 02/10/2025 3:06 PM EDT Normal MRI appearance of the thoracic cord. -------- FINAL REPORT -------- Dictated By: Cordell Thompson Dictated Date: 02/10/2025 14:58 ET Assigned Physician: Cordell Thompson Reviewed and Electronically Signed By: Cordell Thompson Signed Date: 02/10/2025 15:06 ET Workstation ID: [id number] Transcribed By: Self Edit Transcribed Date: 02/10/2025 14:58 ET Narrative 02/10/2025 3:06 PM EDT PROCEDURE: MRI of the thoracic spine with intravenous contrast. HISTORY: white matter lesion , neuropathy. COMPARISON: None. TECHNIQUE: Sagittal and axial multisequence MRI of the thoracic spine with and without intravenous contrast. IV contrast dose: 20 mL intravenous Dotarem from a 20 mL vial with 0 mL discarded. FINDINGS: The paraspinous soft tissues are normal. Normal alignment. No compression deformity. No concerning marrow infiltrative lesion. There are minimal degenerative changes of the thoracic vertebral endplates and facet joints. No disc herniation. No spinal or foraminal stenosis. The thoracic cord is normal in caliber, contour, and signal. There is no abnormal cord enhancement. Procedure Note Cordell Thompson MD - 02/10/2025 PROCEDURE: MRI of the thoracic spine with intravenous contrast. HISTORY: white matter lesion , neuropathy. COMPARISON: None. TECHNIQUE: Sagittal and axial multisequence MRI of the thoracic spine withand without intravenous contrast. IV contrast dose: 20 mL intravenous Dotarem from a 20 mL vial with 0 mLdiscarded. FINDINGS: The paraspinous soft tissues are normal. Normal alignment. No compression deformity. No concerning marrowinfiltrative lesion. There are minimal degenerative changes of thethoracic vertebral endplates and facet joints. No disc herniation. Nospinal or foraminal stenosis. The thoracic cord is normal in caliber, contour, and signal. There is noabnormal cord enhancement. IMPRESSION: Normal MRI appearance of the thoracic cord. -------- FINAL REPORT -------- Dictated By: Cordell Thompson Dictated Date: 02/10/2025 14:58 ET Assigned Physician: Cordell Thompson Reviewed and Electronically Signed By: Cordell Thompson Signed Date: 02/10/2025 15:06 ET Workstation ID: [id number] Transcribed By: Self Edit Transcribed Date: 02/10/2025 14:58 ET Rohit Platt MD IMG MRI PROCEDURES Final Result * Myelin oligodendrocyte glycoprotein antibody with reflex to titer (01/13/2025 3:30 PM EDT) [facility] MOG Antibody, Cell-based IFA Negative Negative 01/17/2025 6:05 AM EDT [facility] Blood Venous blood specimen / Unknown Venipuncture / Unknown 01/13/2025 3:30 PM EDT 01/13/2025 3:30 PM EDT Narrative [facility] - 01/17/2025 6:05 AM EDT Test(s) [id number] Antibody, Cell-based IFA was developed and its performance characteristics determined by [facility]. It has not been cleared or approved by the Food and Drug Administration. Performed at: 01 - [address] [id number] Engineering Test Mechanic: Porter Young MD, Phone: [phone] us Rhoit Platt MD LAB BLOOD ORDERABLES Fin al Result [facility] * JCV polyoma virus antibody with reflex to inhibition assay (01/13/2025 3:30 PM EDT) Index Value 0.16 2025 11:05 AM EDT [facility] JCV Antibody Negative 2025 11:05 AM EDT [facility] Comment: Index interpretive criteria: <0.20 negative 0.20-0.40 indeterminate >0.40 positive Interpretation Note 2025 11:05 AM EDT [facility] Comment: INTERPRETATION Negative: Antibodies to JCV not detected. Indeterminate: Low level reactivity detected, see Inhibition Assay result below for the final antibody result. Positive: Antibodies to MISA virus (JCV) detected indicating the patient has been exposed to JCV at an undetermined time. The STRATIFY JCV(R) DxSelect(TM) Antibody Test is an enzyme-linked immunosorbent assay (CARRIE) designed to detect JCV antibodies to help identify individuals who have been exposed to the virus. Samples with low level reactivity in the detection assay are retested in a confirmation (inhibition) assay to confirm presence or absense of JCV-specific antibodies. Retrospective analyses of post marketing data from various sources, including observational studies and spontaneous reports obtained worldwide, suggest that the risk of developing PML may be associated with relative levels of serum anti-JCV antibody as measured by anti-JCV antibody index. (1) (1) TYSABRI(natalizumab)US Prescribing Information Interpretation Note 2025 11:05 AM EDT [facility] Comment: Positive: Antibodies to MISA virus (JCV) detected indicating the patient has been exposed to JCV at an undetermined time Negative: Antibodies to JCV not detected Blood Venous blood specimen / Unknown Venipuncture / Unknown 01/13/2025 3:30 PM EDT 01/13/2025 3:30 PM EDT Narrative [facility] - 2025 11:05 AM EDT Performed at: 01 - [facility] [address] [place] [id number] Engineering Test Mechanic: Vanessa Noel MD, Phone: [phone] Rohit Platt MD LAB BLOOD ORDERABLES Fin al Result [facility] * Sjogrens antibodies, SSA and SSB (01/13/2025 3:30 PM EDT) Sjogren's SS-A (Ro) Ab Quant 1 <20 units LAB CHEMISTRY METHOD 01/19/2025 10:36 AM EDT [facility] Sjogren's SS-A (Ro) Ab Negative Negative LAB CHEMISTRY METHOD 01/19/2025 10:36 AM EDT [facility] Sjogren's SS-B (La) Ab Quant 1 <20 units LAB CHEMISTRY METHOD 01/19/2025 10:36 AM EDT [facility] Sjogren's SS-B (La) Ab Negative Negative LAB CHEMISTRY METHOD 01/19/2025 10:36 AM EDT [facility] Blood Venous blood specimen / Unknown Venipuncture / Unknown 01/13/2025 3:30 PM EDT 01/13/2025 3:30 PM EDT Rohit Platt MD LAB BLOOD ORDERABLES Fin al Result [facility] [address] [place] [address], * Neuromyelitis optica, [id number] (01/13/2025 3:30 PM EDT) Pathologist [facility] NMO IgG Autoantibodies <1.5 0.0 - 3.0 U/mL 01/17/2025 4:05 PM EDT [facility] Comment: Negative: 0.0 - 3.0 Positive: >3.0 Blood Venous blood specimen / Unknown Venipuncture / Unknown 01/13/2025 3:30 PM EDT 01/13/2025 3:30 PM EDT Narrative [facility] - 01/17/2025 4:05 PM EDT Performed at: - [address] [id number] Engineering Test Mechanic: Porter Young MD, Phone: [phone] Rohit Platt MD LAB BLOOD ORDERABLES Fin al Result [facility] * ELLY IFA with titer and pattern (01/13/2025 3:30 PM EDT) Pathologist [facility] ELLY Negative Negative 01/14/2025 3:08 PM EDT [facility] Blood Venous blood specimen / Unknown Venipuncture / Unknown 01/13/2025 3:30 PM EDT 01/13/2025 3:30 PM EDT Rohit Platt MD LAB BLOOD ORDERABLES Fin al Result Performing Organization Address City/[facility]/ZIP Co de Phone Number [facility] [address] [place] [address], * (ABNORMAL) CBC auto differential (01/13/2025 3:30 PM EDT) [facility] WBC 7.9 4.8 - 10.8 K/mcL LAB HEMETOLOGY METHOD 01/13/2025 6:21 PM EDT [facility] RBC 5.40 4.50 - 5.50 M/mcL LAB HEMETOLOGY METHOD 01/13/2025 6:21 PM EDT [facility] Hemoglobin 15.0 13.5 - 17.5 g/dL LAB HEMETOLOGY METHOD 01/13/2025 6:21 PM EDT [facility] Hematocrit 47.1 42.0 - 54.0 % LAB HEMETOLOGY METHOD 01/13/2025 6:21 PM EDT [facility] MCV 86.7 79.0 - 98.0 FL LAB HEMETOLOGY METHOD 01/13/2025 6:21 PM EDT [facility] MCH 27.6 27.0 - 32.0 pcg LAB [facility] M[facility]C 31.8(L) 32.0 - 37.0 g/dL LAB HEMETOLOGY METHOD 01/13/2025 6:21 PM [facility] RDW 13.5 11.0 - 15.0 % LAB HEMETOLOGY METHOD 01/13/2025 6:21 PM [facility] Platelets 294 130 - 400 K/mcL LAB HEMETOLOGY METHOD 01/13/2025 6:21 PM [facility] MPV 9.9 7.0 - 11.0 FL LAB HEMETOLOGY METHOD 01/13/2025 6:21 PM [facility] NRBC 0.0 <1.0 % LAB HEMETOLOGY METHOD 01/13/2025 6:21 PM [facility] NRBC Absolute 0.00 <0.10 K/mcL LAB HEMETOLOGY METHOD 01/13/2025 6:21 PM [facility] Neutrophils Relative 64.0 % LAB HEMETOLOGY METHOD 01/13/2025 6:21 PM [facility] Lymphocytes Relative 28.7 % LAB HEMETOLOGY METHOD 01/13/2025 6:21 PM [facility] Monocytes Relative 5.5 % LAB HEMETOLOGY METHOD 01/13/2025 6:21 PM [facility] Eosinophils Relative 0.6 % LAB HEMETOLOGY METHOD 01/13/2025 6:21 PM [facility] Basophils Relative 0.8 % LAB HEMETOLOGY METHOD 01/13/2025 6:21 PM [facility] Immature Granulocytes Relative 0.4 % LAB HEMETOLOGY METHOD 01/13/2025 6:21 PM [facility] Neutrophils Absolute 5.03 1.50 - 7.00 K/mcL LAB HEMETOLOGY METHOD 01/13/2025 6:21 PM EDT [facility] Lymphocytes Absolute 2.25 1.00 - 5.00 K/mcL LAB HEMETOLOGY METHOD 01/13/2025 6:21 PM EDT [facility] Monocytes Absolute 0.43 0.20 - 1.00 K/mcL LAB HEMETOLOGY METHOD 01/13/2025 6:21 PM EDT [facility] Eosinophils Absolute 0.05 0.00 - 0.50 K/mcL LAB HEMETOLOGY METHOD 01/13/2025 6:21 PM EDT [facility] Basophils Absolute 0.06 0.00 - 0.20 K/mcL LAB HEMETOLOGY METHOD 01/13/2025 6:21 PM EDT [facility] Immature Granulocytes Absolute 0.03 0.00 - 0.03 K/mcL LAB HEMETOLOGY METHOD 01/13/2025 6:21 PM EDT [facility] Blood Venous blood specimen / Unknown Venipuncture / Unknown 01/13/2025 3:30 PM EDT 01/13/2025 3:30 PM EDT Rohit Platt MD LAB BLOOD ORDERABLES Fin al Result [facility] [address] [place] [address], * Borrelia burgdorferi antibody (01/13/2025 3:30 PM EDT) [facility] Lyme Ab Negative Negative LAB CHEMISTRY METHOD 01/14/2025 8:45 AM EDT [facility] Comment: No laboratory evidence of infection with B. burgdorferi (Lyme disease). Negative results may occur in patients recently infected (<=14 days) with B. burgdorferi. If recent infection is suspected, repeat testing on a new sample collected in 7- 14 days is recommended. Blood Venous blood specimen / Unknown Venipuncture / Unknown 01/13/2025 3:30 PM EDT 01/13/2025 3:30 PM EDT us Rohit Platt MD LAB BLOOD ORDERABLES Fin al Result Performing Organization Address [facility] Co de Phone Number [facility] [address] [place] [address], [place] [phone] * Creatinine (01/13/2025 3:30 PM EDT) Creatinine 0.84 0.70 - 1.30 mg/dL LAB CHEMISTRY METHOD 01/13/2025 7:56 PM EDT [facility] eGFR 110 >=60 mL/min/1. 73m2 LAB CHEMISTRY METHOD 01/13/2025 7:56 PM EDT [facility] Comment:Calculation based on the Chronic Kidney Disease Epidemiology Collaboration (CKD-EPI) equation refit without adjustment for race. Blood Venous blood specimen / Unknown Venipuncture / Unknown 01/13/2025 3:30 PM EDT 01/13/2025 3:30 PM EDT us Rohit Platt MD LAB BLOOD ORDERABLES Fin al Result Performing Organization Address [facility] Co de Phone Number [facility] [address] [place] [address], * (ABNORMAL) Vitamin D 25 hydroxy (01/13/2025 3:30 PM EDT) Vit D, 25-Hydroxy 11.6(L) 30.0 - 80.0 ng/mL LAB CHEMISTRY METHOD 01/13/2025 8:45 PM EDT [facility] Blood Venous blood specimen / Unknown Venipuncture / Unknown 01/13/2025 3:30 PM EDT 01/13/2025 3:30 PM EDT us Rohit Platt MD LAB BLOOD ORDERABLES Fin al Result Performing Organization Address [facility]/ZIP Co de Phone Number [facility] [address] [place] [address], * Rheumatoid factor (01/13/2025 3:30 PM EDT) [facility] Rheumatoid Factor <10.0 <15.0 I Unit/mL LAB CHEMISTRY METHOD 01/13/2025 8:24 PM EDT [facility] Blood Venous blood specimen / Unknown Venipuncture / Unknown 01/13/2025 3:30 PM EDT 01/13/2025 3:30 PM EDT Rohit Platt MD LAB BLOOD ORDERABLES Fin al Result Performing Organization Address [facility] Co de Phone Number [facility] [address] [place] [address], * BUN (01/13/2025 3:30 PM EDT) [facility] BUN 17 5 - 25 mg/dL LAB CHEMISTRY METHOD 01/13/2025 7:56 PM EDT [facility] Blood Venous blood specimen / Unknown Venipuncture / Unknown 01/13/2025 3:30 PM EDT 01/13/2025 3:30 PM EDT Rohit Platt MD LAB BLOOD ORDERABLES Fin al Result Performing Organization Address City/[facility]/ZIP Co de Phone Number [facility] [address] [place] [address], * Vitamin B12 (01/13/2025 3:30 PM EDT) [facility] Vitamin B-12 668 250 - 900 pcg/mL LAB CHEMISTRY METHOD 01/13/2025 8:24 PM EDT [facility] Blood Venous blood specimen / Unknown Venipuncture / Unknown 01/13/2025 3:30 PM EDT 01/13/2025 3:30 PM EDT Rohit Platt MD LAB BLOOD ORDERABLES Fin al Result [facility] [address] [place] [address], [place] [phone] * Hepatic function panel (01/13/2025 3:30 PM EDT) Total Protein 6.9 6.0 - 8.0 g/dL LAB CHEMISTRY METHOD 01/13/2025 8:24 PM EDT [facility] Albumin 4.0 3.2 - 5.0 g/dL LAB CHEMISTRY METHOD 01/13/2025 8:24 PM EDT [facility] Total Bilirubin 0.4 0.0 - 1.4 mg/dL LAB CHEMISTRY METHOD 01/13/2025 8:24 PM EDT [facility] Bilirubin, Direct <0.1 0.0 - 0.3 mg/dL LAB CHEMISTRY METHOD 01/13/2025 8:24 PM EDT [facility] Bilirubin, Indirect LAB CHEMISTRY METHOD 01/13/2025 8:24 PM EDT [facility] Comment:Unable to calculate Indirect Bilirubin. ALT (SGPT) 32 10 - 60 unit/L LAB CHEMISTRY METHOD 01/13/2025 8:24 PM EDT [facility] AST (SGOT) 24 10 - 42 unit/L LAB CHEMISTRY METHOD 01/13/2025 8:24 PM EDT [facility] Alkaline Phosphatase 76 42 - 121 unit/L LAB CHEMISTRY METHOD 01/13/2025 8:24 PM EDT [facility] Blood Venous blood specimen / Unknown Venipuncture / Unknown 01/13/2025 3:30 PM EDT 01/13/2025 3:30 PM EDT Rohit Platt MD LAB BLOOD ORDERABLES Fin al Result [facility] [facility] [address] [place] [address], [place] [phone] from Last 3 Months Insurance Care Teams French Binder Relationship Specialty Start Date End Date Elly Anne MD 2 [facility] , [address] Physician Associ D/B/A: [facility] [place], [place] PCP - General 01/18/24
== END ==
LOC: HO.SL 13:57
PROVIDERS: PCP Internal Medicine; Visit Provider Psychiatry & Neurology Neurology
DX: G47.30 Sleep apnea, unspecified (principal); G47.10 Hypersomnia, unspecified; R06.83 Snoring
CPT/HCPCS: 95806

== ENCOUNTER → 2025-02-13 14:10 | Outpatient (BNV) | payer BC, SELFPAY | PROVIDERS: PCP Internal Medicine; Visit Provider Psychiatry & Neurology Neurology | DX: G47.33 Obstructive sleep apnea (adult) (pediatric) (principal) | CPT/HCPCS: 95806 ==

== ENCOUNTER 2025-02-26 16:17 | Outpatient (AMB) | payer BC, SELFPAY ==
--- OUTSIDE RECORDS SUMMARY | 2025-02-26 16:20 | XMS_ITS | Patient Health Record ---
[facility] Organization [facility] Address [address] [place] [address] Care Team Providers Care Customer Success Intern Name Role Phone Bruna REINA, Elly Primary Care Provider Unavail able Danyajames Nichelle Unavailable [phone] Reason For Referral No Information Medications Medication [...] Polyneuropathy due to diabetes mellitus type I (229738258) Type 1 diabetes mellitus with diabetic polyneuropathy (E10.42) Active confirmed Problem Acquired hallux valgus (76764311) Hallux valgus (acquired), right foot (M20.11) Active confirmed Problem Metatarsalgia of right foot (195524129582111) Metatarsalgia, right foot (M77.41) Active confirmed Problem Metatarsalgia of left foot (402523706114313) Metatarsalgia, left foot (M77.42) Active confirmed Problem Non-pressure ulcer of left lower extremity, limited to breakdown of skin (L97.921) Active confirmed Plan Of Treatment Pending Test Test Name Order Date 57630-TYLHQXP NAIL, 6 OR MORE 09/23/2015 89021-NOPCCWX NAIL, 6 OR MORE 07/20/2015 39662-GVTWIUB NAIL, 6 OR MORE 01/13/2016 72496-OAUOKWZ NAIL, 6 OR MORE 06/20/2016 40514-KVCKWXK NAIL, 6 OR MORE 09/05/2016 30836-RLPMEMG NAIL, 6 OR MORE 11/07/2016 63889-GZZSXIJ NAIL, 6 OR MORE 01/30/2017 51421-VMFGCIM NAIL, 6 OR MORE 04/12/2017 25227-Fjjw Destruction, 1-06/10/2015 72803-Acde Destruction, 1-14 06/29/2015 82091- Debride <25 sq cm 06/29/2015 13394- Debride <25 sq cm 06/10/2015 39449- Debride <25 sq cm 09/23/2015 54334- Debride <25 sq cm 01/13/2016 21797- Debride <25 sq cm 04/12/2017 22506- Debride <25 sq cm 11/24/2016 42158-ZYNXTDS SKIN/TISSUE 11/17/2016 11435-QXJERIX SKIN/TISSUE 02/03/2016 11627-UMMA SKIN LESIONS, OVER 4 06/20/20 16 44072-PLJP SKIN LESIONS, OVER 4 07/20/20 15 00555-NPXL SKIN LESIONS, OVER 4 05/11/20 15 16732-THHW SKIN LESIONS, OVER 4 01/31/20 17 19335-RBDY SKIN LESIONS, OVER 4 04/12/20 17 00430-LRFO SKIN LESIONS, OVER 4 11/08/19 17 80807-HFGO SKIN LESIONS, OVER 4 09/05/19 17 42148-QUUV SKIN LESIONS, 2 TO 4 09/23/19 16 98609-FQTD SKIN LESIONS, 2 TO 4 10/14/19 16 36854-HDFS SKIN LESIONS, 2 TO 4 11/30/19 16 87088-QPXE SKIN LESIONS, 2 TO 4 01/13/20 16 43741-KEFJ SKIN LESIONS, 2 TO 4 02/03/20 16 Insurance Providers Payer Name Payer Address Payer Phone Subscriber Number Group Number Insured Name Patient Relationship to Insured Coverage Start Date Coverage End Date [facility] [address] [place] [address] [phone] [id number] Tasia Kumari Spouse - patient is the spouse of the insured Medical (General) History Medical History History ICD Code Diabetes mellitus Cholesterol Surgical History Surgery Date(Month/Year) amputation, toe - infection 04/12/15 Hospitalization History Reason Date(Month/Year) Right toe amputation 04/2015
--- OUTSIDE RECORDS SUMMARY | 2025-02-26 16:20 | XMS_ITS | Clinical Summary ---
Author Organization [facility] Address [address] [place] [address] Phone Care Team Providers Care Cylinder Batcher Name Role Phone Elly Anne MD Primary Care Provider [phone] Allergies No known active allergies Medications insulin [...] - 01/30/2025 11:59 PM EDT Hospital Encounter [facility] [address] [place] [phone] Multiple sclerosis (CMS/HCC V24, CMS/HCC V28) Discharge Disposition: Home or Self Care 01/30/2025 3:16 PM EDT - 01/30/2025 11:59 PM EDT Hospital Encounter [facility] [address] [place] [phone] Multiple sclerosis (CMS/HCC V24, CMS/HCC V28) Discharge Disposition: Home or Self Care 01/13/2025 2:00 PM EDT Consult [facility] [address] [facility] [address] [place] [phone] Rohit Platt MD White matter lesion of [...] Description 04/15/2025 4:00 PM EDT Office Visit [facility] [address] [facility] [address] [place] [phone] Rohit Platt MD 175 [facility] [address] [place] [phone] Health Maintenance Due Date Last Done Comments Diabetes: Annual Foot Exam 01/20/1990 Diabetes: Annual Retina Eye Exam 01/20/1990 DTaP,Tdap,and Td Vaccines (1 - Tdap) 01/20/1999 Hepatitis B Vaccines (1 of - 19+ 3-dose series) 01/20/1999 COVID-19 Vaccine (2023-2 5 season) 2024 04/23/2021, 04/02/2021 Cholesterol Screening (Lipid Panel) 05/16/2024 Colorectal Cancer Screening: Colonoscopy 05/16/2024 HIV Screening 05/16/2024 Hepatitis C Screening 05/16/2024 Social Influencers of Health Screening 05/16/2024 Depression Screening 08/07/2024 Diabetes: Annual Urine Albumin-Creatinine Ratio (uACR) 01/14/2025 [...] 6:11 PM EDT Multiple sclerosis ([facility] V24, [facility] V28) MR THORACIC SPINE WO AND W CONTRAST Routine 01/30/2025 6:10 PM EDT Multiple sclerosis ([facility] V24, [facility] V28) CBC WITH AUTO DIFFERENTIAL Routine 01/13/2025 3:30 PM EDT Multiple sclerosis ([facility] V24, [facility] V28) VITAMIN B12 Routine 01/13/2025 3:30 PM EDT Multiple sclerosis ([facility] V24, [facility] V28) VITAMIN D 25 HYDROXY Routine 01/13/2025 [...] sclerosis (CMS/HCC V24, CMS/HCC V28) NEUROMYELITIS OPTICA, [id number] Routine 01/13/2025 3:30 PM EDT Multiple sclerosis [...] Signed Date: 02/10/2025 15:17 ET Workstation ID: [id number] Transcribed By: Self Edit Transcribed Date: 02/10/2025 [...] air cells bilaterally. Ectasia of the left [id number] indents the left anterior medulla. Paraspinous soft [...] Signed Date: 02/10/2025 15:17 ET Workstation ID: [id number] Transcribed By: Self Edit Transcribed Date: 02/10/2025 [...] Signed Date: 02/10/2025 15:06 ET Workstation ID: [id number] Transcribed By: Self Edit Transcribed Date: 02/10/2025 [...] Signed Date: 02/10/2025 15:06 ET Workstation ID: [id number] Transcribed By: Self Edit Transcribed Date: 02/10/2025 14:58 ET Rohit Platt MD IMG MRI PROCEDURES Final Result * Myelin oligodendrocyte glycoprotein antibody with reflex to titer (01/13/2025 3:30 PM EDT) [facility] MOG Antibody, Cell-based IFA Negative Negative 01/17/2025 6:05 AM EDT [facility] Blood Venous blood specimen / Unknown Venipuncture / Unknown 01/13/2025 3:30 PM EDT 01/13/2025 3:30 PM EDT Narrative [facility] - 01/17/2025 6:05 AM EDT Test(s) [id number] Antibody, Cell-based IFA was developed and its performance characteristics determined by [facility]. It has not been cleared or approved by the Food and Drug Administration. Performed at: 01 - [address] [id number] Network/Telecom Engineer: Porter Young MD, Phone: [phone] us Rohit Platt MD LAB BLOOD ORDERABLES [...] 11:05 AM EDT Performed at: 01 - [employer] [facility] [address] [place] [id number] Network/Telecom Engineer: Vanessa Noel MD, Phone: [phone] Rohit Platt MD LAB BLOOD ORDERABLES Fin al Result [facility] * Sjogrens antibodies, SSA and SSB (01/13/2025 3:30 PM EDT) Sjogren's SS-A (Ro) Ab Quant 1 <20 units LAB CHEMISTRY METHOD 01/19/2025 10:36 AM EDT [facility] Sjogren's SS-A (Ro) Ab Negative Negative LAB CHEMISTRY METHOD 01/19/2025 10:36 AM EDT [facility] Sjogren's SS-B (La) Ab Quant 1 <20 units LAB CHEMISTRY METHOD 01/19/2025 10:36 AM EDT [facility] Sjogren's SS-B (La) Ab Negative Negative LAB CHEMISTRY METHOD 01/19/2025 10:36 AM EDT [facility] Blood Venous blood specimen / Unknown Venipuncture / Unknown 01/13/2025 3:30 PM EDT 01/13/2025 3:30 PM EDT Rohit Platt MD LAB BLOOD ORDERABLES Fin al Result [facility] [address] [place] [address], * Neuromyelitis optica, [id number] (01/13/2025 3:30 PM EDT) Pathologist [facility] NMO IgG Autoantibodies <1.5 0.0 - 3.0 U/mL 01/17/2025 4:05 PM EDT [facility] Comment: Negative: 0.0 - 3.0 Positive: >3.0 Blood Venous blood specimen / Unknown Venipuncture / Unknown 01/13/2025 3:30 PM EDT 01/13/2025 3:30 PM EDT Narrative [facility] - 01/17/2025 4:05 PM EDT Performed at: - [address] [id number] Network/Telecom Engineer: Poretr Young MD, Phone: [phone] Rohit Platt MD LAB BLOOD ORDERABLES Fin al Result [facility] * ELLY IFA with titer and pattern (01/13/2025 3:30 PM EDT) Pathologist [facility] ELLY Negative Negative 01/14/2025 3:08 PM EDT [facility] Blood Venous blood specimen / Unknown Venipuncture / Unknown 01/13/2025 3:30 PM EDT 01/13/2025 3:30 PM EDT Rohit Platt MD LAB BLOOD ORDERABLES Fin al Result Performing Organization Address City/[facility]/ZIP Co de Phone Number [facility] [address] [place] [address], * (ABNORMAL) CBC auto differential (01/13/2025 3:30 PM EDT) [facility] WBC 7.9 4.8 - 10.8 K/mcL LAB HEMETOLOGY METHOD 01/13/2025 6:21 PM EDT [facility] RBC 5.40 4.50 - 5.50 M/mcL LAB HEMETOLOGY METHOD 01/13/2025 6:21 PM EDT [facility] Hemoglobin 15.0 13.5 - 17.5 g/dL LAB HEMETOLOGY METHOD 01/13/2025 6:21 PM EDT [facility] Hematocrit 47.1 42.0 - 54.0 % LAB HEMETOLOGY METHOD 01/13/2025 6:21 PM EDT [facility] MCV 86.7 79.0 - 98.0 FL LAB HEMETOLOGY METHOD 01/13/2025 6:21 PM EDT [facility] MCH 27.6 27.0 - 32.0 pcg LAB HEMETOLOGY METHOD 01/13/2025 [facility] MCHC 31.8(L) 32.0 - 37.0 g/dL LAB HEMETOLOGY METHOD 01/13/2025 6:21 PM [facility] RDW 13.5 11.0 - 15.0 % LAB HEMETOLOGY METHOD 01/13/2025 6:21 PM [facility] Platelets 294 130 - 400 K/mcL LAB HEMETOLOGY METHOD 01/13/2025 6:21 PM [facility] MPV 9.9 7.0 - 11.0 FL LAB HEMETOLOGY METHOD 01/13/2025 6:21 PM [facility] NRBC 0.0 <1.0 % LAB HEMETOLOGY METHOD 01/13/2025 6:21 PM [facility] NRBC Absolute 0.00 <0.10 K/mcL LAB HEMETOLOGY METHOD 01/13/2025 6:21 PM [facility] Neutrophils Relative 64.0 % LAB HEMETOLOGY METHOD 01/13/2025 6:21 PM [facility] Lymphocytes Relative 28.7 % LAB HEMETOLOGY METHOD 01/13/2025 6:21 PM [facility] Monocytes Relative 5.5 % LAB HEMETOLOGY METHOD 01/13/2025 6:21 PM [facility] Eosinophils Relative 0.6 % LAB HEMETOLOGY METHOD 01/13/2025 6:21 PM [facility] Basophils Relative 0.8 % LAB HEMETOLOGY METHOD 01/13/2025 6:21 PM [facility] Immature Granulocytes Relative 0.4 % LAB HEMETOLOGY METHOD 01/13/2025 6:21 PM [facility] Neutrophils Absolute 5.03 1.50 - 7.00 K/mcL LAB HEMETOLOGY METHOD 01/13/2025 6:21 PM EDT [facility] Lymphocytes Absolute 2.25 1.00 - 5.00 K/mcL LAB HEMETOLOGY METHOD 01/13/2025 6:21 PM EDT [facility] Monocytes Absolute 0.43 0.20 - 1.00 K/mcL LAB HEMETOLOGY METHOD 01/13/2025 6:21 PM EDT [facility] Eosinophils Absolute 0.05 0.00 - 0.50 K/mcL LAB HEMETOLOGY METHOD 01/13/2025 6:21 PM EDT [facility] Basophils Absolute 0.06 0.00 - 0.20 K/mcL LAB HEMETOLOGY METHOD 01/13/2025 6:21 PM EDT [facility] Immature Granulocytes Absolute 0.03 0.00 - 0.03 K/mcL LAB HEMETOLOGY METHOD 01/13/2025 6:21 PM EDT [facility] Blood Venous blood specimen / Unknown Venipuncture / Unknown 01/13/2025 3:30 PM EDT 01/13/2025 3:30 PM EDT Rohit Platt MD LAB BLOOD ORDERABLES Fin al Result [facility] [address] [place] [address], * Borrelia burgdorferi antibody (01/13/2025 3:30 PM EDT) [facility] Lyme Ab Negative Negative LAB CHEMISTRY METHOD 01/14/2025 8:45 AM EDT [facility] Comment: No laboratory evidence of [...] ORDERABLES Fin al Result Performing Organization Address [facility] Co de Phone Number [facility] [address] [place] [address], [place] [phone] * Creatinine (01/13/2025 3:30 PM EDT) Creatinine 0.84 0.70 - 1.30 mg/dL LAB CHEMISTRY METHOD 01/13/2025 7:56 PM EDT [facility] eGFR 110 >=60 mL/min/1. 73m2 LAB CHEMISTRY METHOD 01/13/2025 7:56 PM EDT [facility] Comment:Calculation based on the Chronic Kidney Disease Epidemiology Collaboration (CKD-EPI) equation refit without adjustment for race. Blood Venous blood specimen / Unknown Venipuncture / Unknown 01/13/2025 3:30 PM EDT 01/13/2025 3:30 PM EDT us Rohit Platt MD LAB BLOOD ORDERABLES Fin al Result Performing Organization Address [facility] Co de Phone Number [facility] [address] [place] [address], * (ABNORMAL) Vitamin D 25 hydroxy (01/13/2025 3:30 PM EDT) Vit D, 25-Hydroxy 11.6(L) 30.0 - 80.0 ng/mL LAB CHEMISTRY METHOD 01/13/2025 8:45 PM EDT [facility] Blood Venous blood specimen / Unknown Venipuncture / Unknown 01/13/2025 3:30 PM EDT 01/13/2025 3:30 PM EDT us Rohit Platt MD LAB BLOOD ORDERABLES Fin al Result Performing Organization Address [facility]/ZIP Co de Phone Number [facility] [address] [place] [address], * Rheumatoid factor (01/13/2025 3:30 PM EDT) [facility] Rheumatoid Factor <10.0 <15.0 I Unit/mL LAB CHEMISTRY METHOD 01/13/2025 8:24 PM EDT [facility] Blood Venous blood specimen / Unknown Venipuncture / Unknown 01/13/2025 3:30 PM EDT 01/13/2025 3:30 PM EDT Rohit Platt MD LAB BLOOD ORDERABLES Fin al Result Performing Organization Address [facility] Co de Phone Number [facility] [address] [place] [address], * BUN (01/13/2025 3:30 PM EDT) [facility] BUN 17 5 - 25 mg/dL LAB CHEMISTRY METHOD 01/13/2025 7:56 PM EDT [facility] Blood Venous blood specimen / Unknown Venipuncture / Unknown 01/13/2025 3:30 PM EDT 01/13/2025 3:30 PM EDT Rohit Platt MD LAB BLOOD ORDERABLES Fin al Result Performing Organization Address City/[facility]/ZIP Co de Phone Number [facility] [address] [place] [address], * Vitamin B12 (01/13/2025 3:30 PM EDT) [facility] Vitamin B-12 668 250 - 900 pcg/mL LAB CHEMISTRY METHOD 01/13/2025 8:24 PM EDT [facility] Blood Venous blood specimen / Unknown Venipuncture / Unknown 01/13/2025 3:30 PM EDT 01/13/2025 3:30 PM EDT Rohit Platt MD LAB BLOOD ORDERABLES Fin al Result [facility] [address] [place] [address], [place] [phone] * Hepatic function panel (01/13/2025 3:30 PM EDT) Total Protein 6.9 6.0 - 8.0 g/dL LAB CHEMISTRY METHOD 01/13/2025 8:24 PM EDT [facility] Albumin 4.0 3.2 - 5.0 g/dL LAB CHEMISTRY METHOD 01/13/2025 8:24 PM EDT [facility] Total Bilirubin 0.4 0.0 - 1.4 mg/dL LAB CHEMISTRY METHOD 01/13/2025 8:24 PM EDT [facility] Bilirubin, Direct <0.1 0.0 - 0.3 mg/dL LAB CHEMISTRY METHOD 01/13/2025 8:24 PM EDT [facility] Bilirubin, Indirect LAB CHEMISTRY METHOD 01/13/2025 8:24 PM EDT [facility] Comment:Unable to calculate Indirect Bilirubin. ALT (SGPT) 32 10 - 60 unit/L LAB CHEMISTRY METHOD 01/13/2025 8:24 PM EDT [facility] AST (SGOT) 24 10 - 42 unit/L LAB CHEMISTRY METHOD 01/13/2025 8:24 PM EDT [facility] Alkaline Phosphatase 76 42 - 121 unit/L LAB CHEMISTRY METHOD 01/13/2025 8:24 PM EDT [facility] Blood Venous blood specimen / Unknown Venipuncture / Unknown 01/13/2025 3:30 PM EDT 01/13/2025 3:30 PM EDT Rohit Platt MD LAB BLOOD ORDERABLES Fin al Result [facility]) [facility] [address] [place] [address], [place] [phone] from Last 3 Months Insurance Care Teams Cylinder Batcher Relationship Specialty Start Date End Date Elly Anne MD 2 [facility] , [address] Physician Associ D/B/A: [facility] [place], [place] PCP - General 01/18/24
--- OUTSIDE RECORDS SUMMARY | 2025-02-26 16:20 | XMS_ITS | Data Portability ---
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 Patient TargetsNo targets recorded. Patient Instructions Encounter Date Encounter Id Patient Instructions Last Modified By Organization Details Last Modified Time 09/09/2015 [id number] Today spent abou t 30 minutes discussing with patient regarding his foot condition. He has had the right foot ulcers open and treated for over 3 years with no obvious infections noted but they are not healing and patient is here for a second opinion. Patient is being seen at the wound care center and is considering either surgery or hyperbaric oxygen therapy. Discussed with patient that regarding his x-rays he obviously has a short 5th metatarsal that is causing increased pressure on that side of the foot and the ulceration. He also has decreased fat pad on the plantar 5th met head region and is basically walking on the skin just covering the bone. As well he has another ulcer under the 1st met head and on the left foot has a large callus on the 5th met head region. Really the best treatment is to keep the pressure off that area and he has tried that with a diabetic shoe with off-loading cork. Another identical piece was added today to reduce more pressure. However, the shoe is not offering enough offloading. He could possibly benefit from a TCC to the foot to help heal the ulcer but will have a large chance of recurrence. If surgical off-loading was to be considered a few options to consider would be either a 5th met head resection but that would disrupt the parabola and increase pressure under the 4th met head and possible transfer ulceration. Therefore another option would be for a 5th metatarsal elevational osteotomy to reduce the pressure on the bone in that area and to keep the metatarsal parabola this hopefully would reduce chance of transfer lesion to the 4th met head but not a guarantee. As well due to the equinus of his foot would recommend a MYRON as well to reduce the forefoot pressure. The ulcer to the 1st met head is probably more due to the equinus and the medial loading of the foot to keep off the ulcer on the 5th. Concerns for this patient after surgery would certainly be would healing considering he is a smoker and would need to be strictly NWB or on a knee walker to reduce the pressure to the foot. On x-ray no obvious signs of osteomylitis but considering senior care ulceration if concern for bone infection and increased radiolucency on the x-ray an MRI on foot prior to r/o any deeper bone infection may be a good idea. [email or web address] Not available 09/09/2015 17:05:21 08/25/2016 [id number] Patient is being seen for left foot [...] surgery in the future. Patient comes from [place] and was recommended to return to previous [...] surgery. [email or web address] Not available 08/25/2016 12:47:18 12/13/2018 [id number] Comprehensive Diabetic Foot Examination (CDFE) done today including vascular, neurologic, dermatologic and components. Explanation of systemic risks of diabetes and importance of proper glucose control. Explanation of dangers of neuropathy and loss of gift of pain . Counseling on risk stratification and exam [...] care. [email or web address] Not available 12/13/2018 09:46:12 03/08/2019 [id number] Shoe assessment was performed today to make [...] is a high risk of opening up. [email or web address] Not available 03/08/2019 08:32:29 Reason for Referral None Reported. Results Created Date Observation Date Name Description Value Unit Range Abnormal Flag Note LastModifiedBy Organization Detail LastModifiedTime Result Notes None recorded. Problems Name Problem SNOMED Code Status Onset Date Resolution Date Notes Provider Name and Address Organization Details Recorded Time Foot callus 146258579 Active Jeffry Mcdaniels DPM [address], [phone], [facility] 6 17:05:21 Diabetes mellitus 26181885 Active Jeffry Mcdaniels DPM [address], [address], [facility] 6 17:05:21 Diabetic foot ulcer 358175733 Active Jeffry Mcdaniels DPM [address], [address], [facility] 6 17:05:21 Metatarsalgia 60739354 Active Jeffry Mcdaniels DPM [address], [address], [facility] 6 17:05:21 Problem Notes None recorded. Procedures Surgical History Date Name Laterality Status Provider Name and Address Organization Details Recorded Time 03/08/20 19 Nail Debridement (1-5 nails) completed Jeffry Mcdaniels DPM [address], [address], [facility] 03/08/2019 08:31:44 03/08/20 19 Trimming of Nondystrophic Nails completed Jeffry Mcdaniels DPM [address], [address], [facility] 03/08/2019 08:31:47 03/08/20 19 Keratoma (5+ lesions) completed Jeffry Mcdaniels DPM [address], [address], [facility] 03/08/2019 08:31:58 12/14/19 19 Nail Debridement (1-5 nails) completed Jeffry Mcdaniels DPM [address] [address], [place], [address], [facility] 12/13/2018 09:43:56 12/14/19 19 Trimming of Nondystrophic Nails completed Jeffry Mcdaniels DPM [address] [address], [place], [address], [facility] 12/13/2018 09:44:01 12/14/19 19 Keratoma (2 to 4 lesions) completed Jeffry Mcdaniels DPM [address], [address], [facility] 12/13/2018 09:43:42 12/14/19 19 Debridement Skin/Tissue (20sq cm or less) completed Jeffry Mcdaniels DPM [address], [address], [facility] 12/13/2018 09:43:35 08/25/19 17 Keratoma (1 lesion) completed Jeffry Mcdaniels DPM [address] [address], [place], [address], [facility] 08/25/2016 10:24:54 08/25/19 17 Debridement Skin/Tissue (20sq cm or less) completed Jeffry Mcdaniels DPM [address], [address], [facility] 08/25/2016 10:24:39 04/12/20 16 Foot Surgery completed Elzbieta Garcia [facility] 10/26/2016 14:18:17 09/09/19 16 Keratoma (1 lesion) completed Jeffry Mcdaniels DPM [address], [address], [facility] 09/09/2015 16:07:04 09/09/19 16 Debridement Skin/Tissue (20sq cm or less) completed Jeffry Mcdaniels DPM [address] [place] [address], [address], [facility] 09/09/2015 16:07:04 04/07/20 15 Foot Surgery completed Elzbieta Garcia [facility] 10/26/2016 14:18:17 Imaging Results None recorded. Procedure Notes None recorded. Medical Equipment None Reported. Allergies No known drug allergies Medications Name Sig Start Date Stop Date Status Note LastModified by Organization Details LastModified Time oxcarbazepine 300 mg tabs 12/13 completed Not Available Not Available Not Available sertraline hcl 25 mg tabs 12/13 completed Not Available Not Available Not Available vitamin d 85692 unit caps 12/13 completed Not Available Not [...] Available Vitals Date Recorded Body height Body weight Body mass index (BMI) Provider Name and Address Organization Details Last Updated DateTime 08/25/2016 177.8 cm 824526.83 g 40.9 kg/m2 Elzbieta Garcia [facility] 10/26/2016 14:18:17 Date Recorded Body mass index (BMI) Body weight Body height Provider Name and Address Organization Details Last Updated DateTime 09/09/2015 40.4 kg/m2 315306.2270 g 180.34 cm Tg Pardo [facility] 09/09/2015 15:20:29 Date Recorded Body height Body mass index (BMI) Body weight Pain severity - 0-10 verbal numeric rating [Score] - Reported Provider Name and Address Organization Details Last Updated DateTime 12/13/2018 177.8 cm 40.9 kg/m2 245450.83 g 0 Daniel Dudley [facility] 12/13/2018 08:57:23 Date Recorded Systolic And Diastolic Provider Name and Address Organization Details Last Updated DateTime 03/08/2019 122/82 mm[Hg] Elba Lemus [facility] 03/08/2019 08:13:00 Date Recorded Body height Body mass index (BMI) Body weight Pain severity - 0-10 verbal numeric rating [Score] - Reported Provider Name and Address Organization Details Last Updated DateTime 03/08/2019 177.8 cm 40.9 kg/m2 797874.83 g 0 Daniel Buckner [facility] 03/08/2019 08:07:58 Social History Question Answer Notes LastModified by Year Up Details LastModified Time Tobacco Smoking Status Current Some Day Smoker Tg Pardo colleen [facility] 09/09/2015 15:18:26 Which Illicit Or Recreational Drugs Have You Used? Malcom Information not available 09/09/2015 What Is Your [...] Functional Status Question Answer Note LastModified by Year Up Details LastModified Time What is your level [...] Veins N Diabetes Y Rheumatic Fever N Seizures/Epilepsy N Arthritis N Heart Murmur N Blood Disease N [...] [id number] Jeffry Mcdaniels DPM [facility] [address] [address] 09/09/2015 15:02:46 09/09/2015 16:19:08 Foot callus 279616709 L84 Diabetes mellitus 025937 09 E11.49 Diabetic foot ulcer 3710 78563 L97.509 Metatarsalgia 34092074 M 77.41 [id number] Jeffry Mcdaniels DPM [facility] [address] [address] 08/25/2016 09:46:28 08/25/2016 10:30:32 Keratoma 910124806 L84 Plantarfle xion deformity of foot 652877618 M21.6X2 Diabetic foot ulcer 3710 76862 E11.40 Ulcer of foot 85238302 L 97.521 [id number] Jeffry Mcdaniels DPM [facility] [address] [address] 12/13/2018 08:49:23 12/13/2018 09:49:40 Diabetes mellitus 07235672 E11.49 Type 2 daniel betes mellitus 91646818 E11.9 Foot callus 610662379 L8 4 Ulcer of foot 38961663 L 97.521 Ingrowing nail 742068138 L60.0 Foot pain 92906030 M79.6 71 M79.672 Onychomyco sis due to dermatophyte 012581334 B35.1 [id number] Jeffry Mcdaniels DPM [facility] [address] [address] 03/08/2019 07:55:18 03/08/2019 08:35:17 Diabetes mellitus 05704720 E11.49 Type 2 daniel betes mellitus 22680151 E11.9 Foot callus 555123250 L8 4 Ingrowing nail 727107789 L60.0 Foot pain 66157189 M79.6 71 M79.672 Onychomyco sis due to dermatophyte 731141165 B35.1 Health Concerns Section Related Observation LastModified by Organization Detai ls LastModified Time None Recorded Concern Status LastModified by Organization Details LastModified Time None Recorded Advance Directives Directive None Recorded Payers Insurance Date Sequence Insurance Name Policy Number Policy Mata Covered Member ID Mata Member ID Guarantor Name 12/06/2018 1 [facility] [id number] Tasia [employer] [id number] Larry Payne 10/26/2016 1 [facility] [id number] JustoLucy Payne [id number] Larry Payne 05/21/2019 1 [facility] [place] [id number] Tasia [employer]am[employer] [id number] Larry Payne Notes Date Note Type Note Provider Name and Address Organization Details Recorded Time 09/09/2015 text/html Foot PainReporte d bypatient.Location:vt ghtNotes:Patient has chronic ulcer to the right [...] the ulcers daily. Jeffry Mcdaniels DPM [address] [address], [place], [address], [facility] 09/09/2015 17:05:41 08/25/2016 text/html [...] met head region. Jeffry Mcdaniels DPM [address] [address], [place], [address], [facility] 08/25/2016 12:48:51 12/13/2018 text/html Routine Foot CareReported bypatient.Location:bi lateral Severity:mild Timing:cannot identify Context:cannot identifyNotes:Patient is here for a diabetic foot exam as well as a routine visit. Jeffry Mcdaniels DPM [address] [address], [place], [address], [facility] 12/13/2018 09:46:48 03/08/2019 text/html Routine Foot CareReported bypatient.Location:bi lateral Severity:no pain Timing:cannot identify Context:cannot identify Aggravating Factors:cannot identify Associated Symptoms:no redness; no warmth; no ecchymosis; no drainage; no swelling; no fever; no chills; no pain with direct compressionNotes:poncho ent presents to the office for routine foot care. Jeffry Mcdaniels DPM [address] [address], [place], [address], [facility] 03/08/2019 08:32:56
[2025-02-26 16:25] VITALS: BP 130/72; BMI 38.3
--- NOTE | 2025-02-26 16:25 | MHC.PC.OV ---
Vital Signs 02/26/25 16:25 Height 5 ft 10 in Weight 267 lb BMI 38.3 BP 130/72 Blood Pressure Location Lt brachial Position Sitting Intake Visit Reasons: dm Intake Note: Patient here for a follow up DM Manager Intern Required: No Accompanied by: Self / Same As Patient Allergies No Known Allergies (No Known Allergies*) Allergy (Verified 02/26/25 16:39) Medication List - Last Reconciled 02/26/25 by Elly Anne MD acetone (urine) test (Ketone Urine Test strips) tid prn glucose over 250, nausea or vomiting aspirin (Adult Aspirin Regimen) 81 mg PO DAILY 90 days atorvastatin 40 mg PO DAILY blood-glucose sensor ([facility] PharmStat G7 Sensor device) As directed change every 10 days insulin lispro (Humalog U-100 Insulin) up to 80 units daily via pump subcutaneously every 4 hours; administer with tube feeding 30 days MDD 80 units Lantus Solostar U-100 Insulin (insulin glargine) 30 units (0.3 mL) subcut DAILY PRN 30 days MDD 30 units NS magnesium oxide 400 mg PO DAILY pen needle, diabetic As directed daily Tobacco use date assessed: 08/30/24 Dental Screening Dental Screen Date: 08/30/24 HPI HPI Comments History of Present Illness Details The patient is a 45-year-old male presenting with management of Type 1 Diabetes Mellitus and evaluation for possible Multiple Sclerosis. The patient has a history of Type 1 Diabetes Mellitus, managed with insulin therapy including Lispro and Lantus. He uses a continuous glucose monitor and reports no medication allergies. Current medications also include aspirin, atorvastatin, and magnesium. He also has neuropathy that is aggravated by work due to standing for 8 hours. He will benefit from that standing 8 hours every day. The patient is under evaluation by a neurologist for possible Multiple Sclerosis. An MRI showed changes in the brain suggestive of Multiple Sclerosis, although no treatment has been initiated yet. The patient reports experiencing depression and anxiety but prefers not to take medication for these conditions. He finds that non-pharmacological measures are currently helpful. Preventative care measures discussed include the need for a pneumonia vaccination, which the patient received at age 35. 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 Paternal Grandmother Diabetes Paternal Uncle Diabetes Family/Other Mental health disorder Social History Household Members: Spouse Housing: House Do you presently have visiting nurse or other home services: No Alcohol intake: current Alcohol intake frequency: holidays/special occasions only Alcohol type: beer Patient Tobacco Use Status: Current everyday Tobacco user Tobacco use type: Cigarette Cigarette Packs Per Day: 0.5 Cigarettes Per Day: 10 e-Cigarette/Vaping Use: Never Used Second Hand Smoke Exposure: Yes Substance Use Type: Marijuana service: No Current occupational status: employed Current occupational exposures/hazards: No Cognitive needs: No Hearing needs: No Vision needs: No Questionnaire PHQ-9 Over the last 2 weeks, how often have you been bothered by any of the following problems? 1. Little interest or pleasure in doing things: several days 2. Feeling down, depressed, or hopeless: more than half the days 3. Trouble falling or staying asleep, or sleeping too much: nearly every day 4. Feeling tired or having little energy: nearly every day 5. Poor appetite or overeating: more than half the days 6. Feeling bad about yourself - or that you are a failure or have let yourself or your family down: several days 7. Trouble concentrating on things, such as reading the newspaper or watching television: more than half the days 8. Moving or speaking so slowly that other people could have noticed. Or the opposite - being so fidgety or restless that you have been moving around a lot more than usual: nearly every day 9. Thoughts that you would be better off or of hurting yourself in some way: not at all Total score: 17 Depression Screening Interpretation: Positive Depression Screening Follow-up: Existing condition, Follow-up Visit Requested and Declines treatment Depression Screening Done: Yes 94400 - PHQ-9 Billing: Yes Source: Developed by Drs. Jace Padilla, Earlene Perez, Bogdan Luong and colleagues, with an educational lydia from [employer]. Thrive Questionnaire Date Thrive assessed: 08/27/24 I am a: Patient What is your living situation today?: I have a steady place to live Within the past 12 months, did the food you bought not last and you didn't have the money to get more?: I choose not to answer this question Within the past 12 months, did you worry whether your food would run out before you got money to buy more?: Sometimes True Do you have trouble paying for medicines?: No Do you have trouble getting transportation to medical appointments?: No Do you have trouble paying your heating and electricity bill?: No Do you have trouble taking care of your child, family member or friend?: No Do you have trouble with day-to-day activities such as bathing, preparing meals, shopping, managing finances, etc.?: No Are you currently unemployed and looking for a job?: No Are you interested in more education?: No Please select the resources that you would like help with: None Currently or been in a relationship where the following occur: No concerns reported THRIVE Score: 1 AUDIT C Alcohol Use Questionnaire (AUDIT-C) 1. How often do you have a drink containing alcohol?: Monthly or less 2. How many drinks containing alcohol do you have on a typical day when you are drinking?: 5 or 6 3. How often do you have six or more drinks on one occasion?: Less than monthly Total Score: 4 TEODORO-7 AMB Questionnaire TEODORO-7 Date TEODORO - 7 assessed: 08/30/24 Feeling nervous, anxious, or on edge: 2 = More than half the days Not being able to stop or control worryin = More than half the days Worrying too much about different things: 2 = More than half the days Trouble relaxin = More than half the days Being so restless that it is hard to sit still: 3 = Nearly every day Becoming easily annoyed or irritable: 2 = More than half the days Feeling afraid as if something awful might happen: 2 = More than half the days Total TEODORO-7 score (0-4 normal; 5-9 mild; 10-14 moderate; 15-21 severe): 15 Source: Developed by Drs. Jace Padilla, Earlene Perez, Bogdan Luong and colleagues, with an educational lydia from [employer]. TEODORO-7 Assessment Billing TEODORO-7 Assessment Tool: TEODORO-7 Assessment 40862 Review of Systems Const All systems reviewed & are unremarkable except as noted in HPI and below Card Denies chest pain at rest, Denies chest pain with activity, Denies edema, Denies irregular heart rhythm, Denies claudication, Denies dyspnea, Denies dyspnea on exertion, Denies orthopnea, Denies paroxysmal nocturnal dyspnea and Denies slow heart rate Resp Denies cough, Denies dyspnea and Denies dyspnea on exertion GI Denies abdominal pain, Denies change in bowel habits, Denies excessive flatus, Denies nausea and Denies vomiting Denies urinary hesitancy, Denies urinary incontinence and Denies urinary urgency Musc Denies atrophy, Denies deformity and Denies limited range of motion Skin/Breast Denies bleeding lesions, Denies changing lesions and Denies rash Physical exam (Primary Care) Vital Signs: Last Vital Signs BP 130/72 02/26/25 16:25 BMI result Body Mass Index 38.3 BMI Assessment/Plan discussion: High BMI High, discussed plan: lifestyle, weight reduction, dietary and physical activity Tobacco/Smoking Status: Tobacco use Status Tobacco use date assessed 08/30/24 02/26/25 16:31 Patient Tobacco Use Status Current everyday Tobacco 02/26/25 16:31 Tobacco use type Cigarette 02/26/25 16:31 e-Cigarette/Vaping Use Never Used 02/26/25 16:31 PHQ-9: PHQ-9 Score PHQ-9: Total score 17 02/26/25 16:41 Depression Screening Interpretation: Positive Depression Screening Follow-up: Existing condition, Follow-up Visit Requested and Declines treatment Thrive Assessment: Date of Thrive Assessment Date Thrive assessed 08/27/24 02/26/25 16:31 Currently or been in a relationship where the following occur: No concerns reported Resp Effort & Inspection: normal respiratory effort Auscultation: clear to auscultation bilaterally Cardio Jugular venous distension: no JVD Rate: regular rate Rhythm: regular rhythm Heart sounds: S1 normal heart sound present and S2 normal heart sound present Extrem General: Yes full ROM Results AMB Hemoglobin A1c AMB Hemoglobin A1c 6.7 % Last Edit by MARIA ALEJANDRA Gil on 02/26/25 16:41 Results Reviewed Results Reviewed: Laboratory Last Values Hgb A1c (Clinic) 6.7 % (4.0-6.0) H 02/26/25 16:31 Coding Level of Care Code Est Pt Level 4 (52778) Complex EM visit Add On G2211 Diagnoses Diabetic polyneuropathy associated with type 1 diabetes mellitus E10.42 Diabetes type 1, controlled E10.9 Moderate recurrent major depression F33.1 TEODORO (generalized anxiety disorder) F41.1 Multiple sclerosis G35 Dyslipidemia E78.5 Additional Codes TEODORO-7 Assessment Billing - TEODORO-7 Assessment Tool: TEODORO-7 Assessment 63373 ([id number]) PHQ-9 - 71642 - PHQ-9 Billing: Yes ([id number]) Time Spent (min) 21 Assessment & Plan Assessment & Plan (1) Diabetic polyneuropathy associated with type 1 diabetes mellitus: Code(s): E10.42 - Type 1 diabetes mellitus with diabetic polyneuropathy Category: Medical (2) Diabetes type 1, controlled: Code(s): E10.9 - Type 1 diabetes mellitus without complications Category: Medical (3) Moderate recurrent major depression: Code(s): F33.1 - Major depressive disorder, recurrent, moderate Category: Medical (4) TEODORO (generalized anxiety disorder): Code(s): F41.1 - Generalized anxiety disorder Category: Medical (5) Multiple sclerosis: Code(s): G35 - Multiple sclerosis Category: Medical (6) Dyslipidemia: Comment: Code(s): E78.5 - Hyperlipidemia, unspecified Category: Medical Plan The plan includes continued management of Type 1 Diabetes Mellitus with current insulin therapy and monitoring through a continuous glucose monitor. The patient will continue to be evaluated by a neurologist for possible Multiple Sclerosis, with no current medication planned until further assessment. Preventative care includes ensuring up-to-date vaccinations, specifically the pneumonia vaccine, which was previously administered at age 35. The patient is advised to continue non-pharmacological management for depression and anxiety, as he finds these measures beneficial. Patient was informed and verbally consented to the use of an ambient scribe for clinic note documentation during this visit. I discussed with the patient the ongoing management of his Type 1 Diabetes Mellitus, emphasizing the importance of insulin therapy and regular monitoring with a continuous glucose monitor. We reviewed the findings from the MRI, which suggest possible Multiple Sclerosis, and the need for further evaluation by a neurologist. I advised the patient on the importance of keeping vaccinations up to date, including the pneumonia vaccine. We also discussed his preference for non-pharmacological management of depression and anxiety, which he finds effective. Orders: Orders AMB Hemoglobin A1c 02/26/25 E10.42 - Type 1 diabetes mellitus with diabetic polyneuropathy Lipid Panel 02/26/25 E78.5 - Hyperlipidemia, unspecified Comprehensive [place]. Panel Fast 02/26/25 E10.42 - Type 1 diabetes mellitus with diabetic polyneuropathy Patient Instructions: - Continue using insulin as prescribed and monitor blood glucose levels regularly. - Follow up with the neurologist for further evaluation of possible Multiple Sclerosis. - Ensure vaccinations are up to date, including the pneumonia vaccine. - Continue non-pharmacological methods for managing depression and anxiety.
== END 2025-02-26 16:52 | disposition home or self-care (01) ==
LOC: HO.HMCH 16:18
PROVIDERS: PCP Internal Medicine; Visit Provider Internal Medicine
DX: E10.42 Type 1 diabetes mellitus with diabetic polyneuropathy (principal)

== ENCOUNTER → 2025-02-26 16:17 | Outpatient (BNVA) | payer BC, SELFPAY | PROVIDERS: PCP Internal Medicine; Visit Provider Internal Medicine | DX: E10.42 Type 1 diabetes mellitus with diabetic polyneuropathy (principal); F33.1 Major depressive disorder, recurrent, moderate; F41.1 Generalized anxiety disorder; G35 Multiple sclerosis; E78.5 Hyperlipidemia, unspecified; Z79.4 Long term (current) use of insulin | CPT/HCPCS: 83036; 96127 ==

== ENCOUNTER 2025-03-04 08:21 | Outpatient (REF) | payer BC, SELFPAY ==
--- OUTSIDE RECORDS SUMMARY | 2025-03-04 08:30 | XMS_ITS | Clinical Summary ---
Author Organization [facility] Address [address] [place] [address] Phone Care Team Providers Care Footwear Stitcher Name Role Phone Elly Anne MD Primary Care Provider [phone] Allergies No known active allergies Medications insulin [...] - 01/30/2025 11:59 PM EDT Hospital Encounter [facility] [address] [place] [phone] Multiple sclerosis (CMS/HCC V24, CMS/HCC V28) Discharge Disposition: Home or Self Care 01/30/2025 3:16 PM EDT - 01/30/2025 11:59 PM EDT Hospital Encounter [facility] MRI [address] [place] [phone] Multiple sclerosis (CMS/HCC V24, CMS/HCC V28) Discharge Disposition: Home or Self Care 01/13/2025 2:00 PM EDT Consult [facility] [address] [facility] [address] [place] [phone] Rohit Platt MD White matter lesion of [...] Description 04/15/2025 4:00 PM EDT Office Visit [facility] [address] [facility] [address] [place] [phone] Rohit Platt MD 175 [facility] [address] [place] [phone] Health Maintenance Due Date Last Done Comments [...] Routine 01/30/2025 6:11 PM EDT Multiple sclerosis ([facility] V24, [facility] V28) MR THORACIC SPINE WO AND W CONTRAST Routine 01/30/2025 6:10 PM EDT Multiple sclerosis ([facility] V24, CMS/[facility] V28) CBC WITH AUTO DIFFERENTIAL Routine 01/13/2025 3:30 PM EDT Multiple sclerosis ([facility] V24, CMS/[facility] V28) VITAMIN B12 Routine 01/13/2025 3:30 PM EDT Multiple sclerosis ([facility] V24, [facility] V28) VITAMIN D 25 HYDROXY Routine 01/13/2025 [...] sclerosis (CMS/HCC V24, CMS/HCC V28) NEUROMYELITIS OPTICA, [id number] Routine 01/13/2025 3:30 PM EDT Multiple sclerosis [...] Signed Date: 02/10/2025 15:17 ET Workstation ID: [id number] Transcribed By: Self Edit Transcribed Date: 02/10/2025 [...] air cells bilaterally. Ectasia of the left [id number] indents the left anterior medulla. Paraspinous soft [...] Signed Date: 02/10/2025 15:17 ET Workstation ID: [id number] Transcribed By: Self Edit Transcribed Date: 02/10/2025 [...] Signed Date: 02/10/2025 15:06 ET Workstation ID: [id number] Transcribed By: Self Edit Transcribed Date: 02/10/2025 [...] Signed Date: 02/10/2025 15:06 ET Workstation ID: [id number] Transcribed By: Self Edit Transcribed Date: 02/10/2025 14:58 ET Rohit Platt MD IMG MRI PROCEDURES Final Result * Myelin oligodendrocyte glycoprotein antibody with reflex to titer (01/13/2025 3:30 PM EDT) [facility] MOG Antibody, Cell-based IFA Negative Negative 01/17/2025 6:05 AM EDT [facility] Blood Venous blood specimen / Unknown Venipuncture / Unknown 01/13/2025 3:30 PM EDT 01/13/2025 3:30 PM EDT Narrative [facility] - 01/17/2025 6:05 AM EDT Test(s) 812034-MDD Antibody, Cell-based IFA was developed and its performance characteristics determined by [facility]. It has not been cleared or approved by the Food and Drug Administration. Performed at: 01 - [address] [id number] Telegraphic Typewriter Installer: Porter Young MD, Phone: [phone] us Rohit Platt MD LAB BLOOD ORDERABLES [...] 11:05 AM EDT Performed at: 01 - [employer] [facility] [address] [place] [id number] Telegraph[employer] Typewriter Installer: Vanessa Noel MD, Phone: [phone] Rohit Platt MD LAB BLOOD ORDERABLES Fin al Result [facility] * Sjogrens antibodies, SSA and SSB (01/13/2025 3:30 PM EDT) Sjogren's SS-A (Ro) Ab Quant 1 <20 units LAB CHEMISTRY METHOD 01/19/2025 10:36 AM EDT [facility] Sjogren's SS-A (Ro) Ab Negative Negative LAB CHEMISTRY METHOD 01/19/2025 10:36 AM EDT [facility] Sjogren's SS-B (La) Ab Quant 1 <20 units LAB CHEMISTRY METHOD 01/19/2025 10:36 AM EDT [facility] Sjogren's SS-B (La) Ab Negative Negative LAB CHEMISTRY METHOD 01/19/2025 10:36 AM EDT [facility] Blood Venous blood specimen / Unknown Venipuncture / Unknown 01/13/2025 3:30 PM EDT 01/13/2025 3:30 PM EDT Rohit Platt MD LAB BLOOD ORDERABLES Fin al Result [facility] [address] [place] [address], * Neuromyelitis optica, [id number] (01/13/2025 3:30 PM EDT) Pathologist [facility] NMO IgG Autoantibodies <1.5 0.0 - 3.0 U/mL 01/17/2025 4:05 PM EDT [facility] Comment: Negative: 0.0 - 3.0 Positive: >3.0 Blood Venous blood specimen / Unknown Venipuncture / Unknown 01/13/2025 3:30 PM EDT 01/13/2025 3:30 PM EDT Narrative [facility] - 01/17/2025 4:05 PM EDT Performed at: - [address] [id number] Telegraphic Typewriter Installer: Porter Young MD, Phone: [phone] Rohit Platt MD LAB BLOOD ORDERABLES Fin al Result [facility] * ELLY IFA with titer and pattern (01/13/2025 3:30 PM EDT) Pathologist [facility] ELLY Negative Negative 01/14/2025 3:08 PM EDT [facility] Blood Venous blood specimen / Unknown Venipuncture / Unknown 01/13/2025 3:30 PM EDT 01/13/2025 3:30 PM EDT Rohit Platt MD LAB BLOOD ORDERABLES Fin al Result Performing Organization Address City/[facility]/ZIP Co de Phone Number [facility] [address] [place] [address], * (ABNORMAL) CBC auto differential (01/13/2025 3:30 PM EDT) [facility] WBC 7.9 4.8 - 10.8 K/mcL LAB HEMETOLOGY METHOD 01/13/2025 6:21 PM EDT [facility] RBC 5.40 4.50 - 5.50 M/mcL LAB HEMETOLOGY METHOD 01/13/2025 6:21 PM EDT [facility] Hemoglobin 15.0 13.5 - 17.5 g/dL LAB HEMETOLOGY METHOD 01/13/2025 6:21 PM EDT [facility] Hematocrit 47.1 42.0 - 54.0 % LAB HEMETOLOGY METHOD 01/13/2025 6:21 PM EDT [facility] MCV 86.7 79.0 - 98.0 FL LAB HEMETOLOGY METHOD 01/13/2025 6:21 PM EDT [facility] MCH 27.6 27.0 - 32.0 pcg [facility] M[facility]C 31.8(L) 32.0 - 37.0 g/dL LAB HEMETOLOGY METHOD 01/13/2025 6:21 PM [facility] RDW 13.5 11.0 - 15.0 % LAB HEMETOLOGY METHOD 01/13/2025 6:21 PM [facility] Platelets 294 130 - 400 K/mcL LAB HEMETOLOGY METHOD 01/13/2025 6:21 PM [facility] MPV 9.9 7.0 - 11.0 FL LAB HEMETOLOGY METHOD 01/13/2025 6:21 PM [facility] NRBC 0.0 <1.0 % LAB HEMETOLOGY METHOD 01/13/2025 6:21 PM [facility] NRBC Absolute 0.00 <0.10 K/mcL LAB HEMETOLOGY METHOD 01/13/2025 6:21 PM [facility] Neutrophils Relative 64.0 % LAB HEMETOLOGY METHOD 01/13/2025 6:21 PM [facility] Lymphocytes Relative 28.7 % LAB HEMETOLOGY METHOD 01/13/2025 6:21 PM [facility] Monocytes Relative 5.5 % LAB HEMETOLOGY METHOD 01/13/2025 6:21 PM [facility] Eosinophils Relative 0.6 % LAB HEMETOLOGY METHOD 01/13/2025 6:21 PM [facility] Basophils Relative 0.8 % LAB HEMETOLOGY METHOD 01/13/2025 6:21 PM [facility] Immature Granulocytes Relative 0.4 % LAB HEMETOLOGY METHOD 01/13/2025 6:21 PM [facility] Neutrophils Absolute 5.03 1.50 - 7.00 K/mcL LAB HEMETOLOGY METHOD 01/13/2025 6:21 PM EDT [facility] Lymphocytes Absolute 2.25 1.00 - 5.00 K/mcL LAB HEMETOLOGY METHOD 01/13/2025 6:21 PM EDT [facility] Monocytes Absolute 0.43 0.20 - 1.00 K/mcL LAB HEMETOLOGY METHOD 01/13/2025 6:21 PM EDT [facility] Eosinophils Absolute 0.05 0.00 - 0.50 K/mcL LAB HEMETOLOGY METHOD 01/13/2025 6:21 PM EDT [facility] Basophils Absolute 0.06 0.00 - 0.20 K/mcL LAB HEMETOLOGY METHOD 01/13/2025 6:21 PM EDT [facility] Immature Granulocytes Absolute 0.03 0.00 - 0.03 K/mcL LAB HEMETOLOGY METHOD 01/13/2025 6:21 PM EDT [facility] Blood Venous blood specimen / Unknown Venipuncture / Unknown 01/13/2025 3:30 PM EDT 01/13/2025 3:30 PM EDT Rohit Platt MD LAB BLOOD ORDERABLES Fin al Result [facility] [address] [place] [address], * Borrelia burgdorferi antibody (01/13/2025 3:30 PM EDT) [facility] Lyme Ab Negative Negative LAB CHEMISTRY METHOD 01/14/2025 8:45 AM EDT [facility] Comment: No laboratory evidence of [...] ORDERABLES Fin al Result Performing Organization Address [facility] Co de Phone Number [facility] [address] [place] [address], [place] [phone] * Creatinine (01/13/2025 3:30 PM EDT) Creatinine 0.84 0.70 - 1.30 mg/dL LAB CHEMISTRY METHOD 01/13/2025 7:56 PM EDT [facility] eGFR 110 >=60 mL/min/1. 73m2 LAB CHEMISTRY METHOD 01/13/2025 7:56 PM EDT [facility] Comment:Calculation based on the Chronic Kidney Disease Epidemiology Collaboration (CKD-EPI) equation refit without adjustment for race. Blood Venous blood specimen / Unknown Venipuncture / Unknown 01/13/2025 3:30 PM EDT 01/13/2025 3:30 PM EDT us Rohit Platt MD LAB BLOOD ORDERABLES Fin al Result Performing Organization Address [facility] Co de Phone Number [facility] [address] [place] [address], * (ABNORMAL) Vitamin D 25 hydroxy (01/13/2025 3:30 PM EDT) Vit D, 25-Hydroxy 11.6(L) 30.0 - 80.0 ng/mL LAB CHEMISTRY METHOD 01/13/2025 8:45 PM EDT [facility] Blood Venous blood specimen / Unknown Venipuncture / Unknown 01/13/2025 3:30 PM EDT 01/13/2025 3:30 PM EDT us Rohit Platt MD LAB BLOOD ORDERABLES Fin al Result Performing Organization Address [facility]/ZIP Co de Phone Number [facility] [address] [place] [address], * Rheumatoid factor (01/13/2025 3:30 PM EDT) [facility] Rheumatoid Factor <10.0 <15.0 I Unit/mL LAB CHEMISTRY METHOD 01/13/2025 8:24 PM EDT [facility] Blood Venous blood specimen / Unknown Venipuncture / Unknown 01/13/2025 3:30 PM EDT 01/13/2025 3:30 PM EDT Rohit Platt MD LAB BLOOD ORDERABLES Fin al Result Performing Organization Address [facility] Co de Phone Number [facility] [address] [place] [address], * BUN (01/13/2025 3:30 PM EDT) [facility] BUN 17 5 - 25 mg/dL LAB CHEMISTRY METHOD 01/13/2025 7:56 PM EDT [facility] Blood Venous blood specimen / Unknown Venipuncture / Unknown 01/13/2025 3:30 PM EDT 01/13/2025 3:30 PM EDT Rohit Platt MD LAB BLOOD ORDERABLES Fin al Result Performing Organization Address City/[facility]/ZIP Co de Phone Number [facility] [address] [place] [address], * Vitamin B12 (01/13/2025 3:30 PM EDT) [facility] Vitamin B-12 668 250 - 900 pcg/mL LAB CHEMISTRY METHOD 01/13/2025 8:24 PM EDT [facility] Blood Venous blood specimen / Unknown Venipuncture / Unknown 01/13/2025 3:30 PM EDT 01/13/2025 3:30 PM EDT Rohit Platt MD LAB BLOOD ORDERABLES Fin al Result [facility] [address] [place] [address], [place] [phone] * Hepatic function panel (01/13/2025 3:30 PM EDT) Total Protein 6.9 6.0 - 8.0 g/dL LAB CHEMISTRY METHOD 01/13/2025 8:24 PM EDT [facility] Albumin 4.0 3.2 - 5.0 g/dL LAB CHEMISTRY METHOD 01/13/2025 8:24 PM EDT [facility] Total Bilirubin 0.4 0.0 - 1.4 mg/dL LAB CHEMISTRY METHOD 01/13/2025 8:24 PM EDT [facility] Bilirubin, Direct <0.1 0.0 - 0.3 mg/dL LAB CHEMISTRY METHOD 01/13/2025 8:24 PM EDT [facility] Bilirubin, Indirect LAB CHEMISTRY METHOD 01/13/2025 8:24 PM EDT [facility] Comment:Unable to calculate Indirect Bilirubin. ALT (SGPT) 32 10 - 60 unit/L LAB CHEMISTRY METHOD 01/13/2025 8:24 PM EDT [facility] AST (SGOT) 24 10 - 42 unit/L LAB CHEMISTRY METHOD 01/13/2025 8:24 PM EDT [facility] Alkaline Phosphatase 76 42 - 121 unit/L LAB CHEMISTRY METHOD 01/13/2025 8:24 PM EDT [facility] Blood Venous blood specimen / Unknown Venipuncture / Unknown 01/13/2025 3:30 PM EDT 01/13/2025 3:30 PM EDT Rohit Platt MD LAB BLOOD ORDERABLES Fin al Result [facility] ([facility]) [facility] [address] [place] [address], [place] [phone] from Last 3 Months Insurance Care Teams Footwear Stitcher Relationship Specialty Start Date End Date Elly Anne MD 2 [facility] , [address] Physician Associ D/B/A: [facility] [place], [place] PCP - General 01/18/24
--- OUTSIDE RECORDS SUMMARY | 2025-03-04 08:30 | XMS_ITS | Patient Health Record ---
Author Organization [facility] Address [address] [place] [address] Care Team Providers Care Prefitter Name Role Phone Bruna REINA, Elly Primary Care Provider Unavail able Danyajames Nichelle Unavailable [phone] Reason For Referral No Information Medications Medication [...] Polyneuropathy due to diabetes mellitus type I (947955724) Type 1 diabetes mellitus with diabetic polyneuropathy (E10.42) Active confirmed Problem Acquired hallux valgus (84842197) Hallux valgus (acquired), right foot (M20.11) Active confirmed Problem Metatarsalgia of right foot (972612258369584) Metatarsalgia, right foot (M77.41) Active confirmed Problem Metatarsalgia of left foot (806685044453738) Metatarsalgia, left foot (M77.42) Active confirmed Problem Non-pressure ulcer of left lower extremity, limited to breakdown of skin (L97.921) Active confirmed Plan Of Treatment Pending Test Test Name Order Date 14236-JMEPWBH NAIL, 6 OR MORE 09/23/2015 51365-YLDYDTM NAIL, 6 OR MORE 07/20/2015 35476-YKPKIUH NAIL, 6 OR MORE 01/13/2016 34214-BCDBVLI NAIL, 6 OR MORE 06/20/2016 89122-NGUTHIU NAIL, 6 OR MORE 09/05/2016 53242-TQBVUUT NAIL, 6 OR MORE 11/07/2016 62151-TPFIVPF NAIL, 6 OR MORE 01/30/2017 15191-SFRIDEV NAIL, 6 OR MORE 04/12/2017 50154-Xzdv Destruction, 1-06/10/2015 59192-Yikn Destruction, 1-14 06/29/2015 57428- Debride <25 sq cm 06/29/2015 78846- Debride <25 sq cm 06/10/2015 22465- Debride <25 sq cm 09/23/2015 92082- Debride <25 sq cm 01/13/2016 60211- Debride <25 sq cm 04/12/2017 12816- Debride <25 sq cm 11/24/2016 79765-SKGAYVW SKIN/TISSUE 11/17/2016 96868-FUPPQND SKIN/TISSUE 02/03/2016 45382-BLBE SKIN LESIONS, OVER 4 06/20/20 16 70502-MVWB SKIN LESIONS, OVER 4 07/20/20 15 72692-JOHD SKIN LESIONS, OVER 4 05/11/20 15 50371-KMOI SKIN LESIONS, OVER 4 01/31/20 17 73330-ZCPP SKIN LESIONS, OVER 4 04/12/20 17 09243-CKJJ SKIN LESIONS, OVER 4 11/08/19 17 26580-BPGC SKIN LESIONS, OVER 4 09/05/19 17 41984-EMUB SKIN LESIONS, 2 TO 4 09/23/19 16 77731-XWLY SKIN LESIONS, 2 TO 4 10/14/19 16 99689-SPLB SKIN LESIONS, 2 TO 4 11/30/19 16 00058-ZNNT SKIN LESIONS, 2 TO 4 01/13/20 16 97368-YTVX SKIN LESIONS, 2 TO 4 02/03/20 16 Insurance Providers Payer Name Payer Address Payer Phone Subscriber Number Group Number Insured Name Patient Relationship to Insured Coverage Start Date Coverage End Date [employer] [facility] [employer] [facility] [employer] [address] [place] [address] [id number] Tasia Kumari Spouse - patient is the spouse of the insured Medical (General) History Medical History History ICD Code Diabetes mellitus Cholesterol Surgical History Surgery Date(Month/Year) amputation, toe - infection 04/12/15 Hospitalization History Reason Date(Month/Year) Right toe amputation 04/2015
--- OUTSIDE RECORDS SUMMARY | 2025-03-04 08:30 | XMS_ITS | Data Portability ---
Author Organization [facility], [facility] Address [address] [place] [address] Care Team Providers Care Computer Clerk Name Role Phone CHARLIE MULLER Primary Care Provider [phone] CHARLIE MULLER Referring Provider [phone] Assessment No assessment recorded. Plan of Treatment Reminders Order Date Submit Date Provider Last Modified By Organization Details Last Modified Time Details Appointments None recorde d. Lab None recorde d. Referral None recorde d. Procedures None recorde d. Surgeries None recorde d. Imaging XR, foot, 3 or more view 017 08/25/19 17 zdapollo In-House Test, For Internal Use Only, Do Not Delete/merge, 89143 7 14:18:17 x-ray, foot, 3 views 016 09/09/19 16 dpelto In-House Test, For Internal Use Only, Do Not Delete/merge, 64660 6 17:05:21 Medication Orders None recorde d. [...] no obvious signs of osteomylitis but considering nursing home ulceration if concern for bone infection and increased radiolucency on the x-ray an MRI on foot prior to r/o any deeper bone infection may be a good idea. [email or web address] Not available 09/09/2015 17:05:21 08/25/2016 05387 Patient is being seen for left foot [...] surgery in the future. Patient comes from [place] and was recommended to return to previous [...] surgery. dpelto Not available 08/25/2016 12:47:18 12/13/2018 39717 Comprehensive Diabetic Foot Examination (CDFE) done today [...] care. [email or web address] Not available 12/13/2018 09:46:12 03/08/2019 34385 Shoe assessment was performed today to make [...] Address Organization Details Recorded Time Foot callus 300400660 Active Jeffry Mcdaniels DPM [address], [address], [facility] 6 17:05:21 Diabetes mellitus 61029438 Active Jeffry Mcdaniels DPM [address], [phone], [facility] 6 17:05:21 Diabetic foot ulcer 689659897 Active Jeffry Mcdaniels DPM [address], [address], [facility] 6 17:05:21 Metatarsalgia 71803686 Active Jeffry Mcdaniels DPM [address], [address], [facility] 6 17:05:21 Problem Notes None recorded. Procedures Surgical History Date Name Laterality Status Provider Name and Address Organization Details Recorded Time 03/08/20 19 Nail Debridement (1-5 nails) completed Jeffry Mcdaniels DPM [address], [address], [facility] 03/08/2019 08:31:44 03/08/20 19 Trimming of Nondystrophic Nails completed Jeffry Mcdaniels DPM [address], [address], [facility] 03/08/2019 08:31:47 03/08/20 19 Keratoma (5+ lesions) completed Jeffry Mcdaniels DPM [address], [address], [facility] 03/08/2019 08:31:58 12/14/19 19 Nail Debridement (1-5 nails) completed Jeffry Mcdaniels DPM [address] [address], [place], [address], [facility] 12/13/2018 09:43:56 12/14/19 19 Trimming of Nondystrophic Nails completed Jeffry Mcdaniels DPM [address] [address], [place], [address], [facility] 12/13/2018 09:44:01 12/14/19 19 Keratoma (2 to 4 lesions) completed Jeffry Mcdaniels DPM [address], [address], [facility] 12/13/2018 09:43:42 12/14/19 19 Debridement Skin/Tissue (20sq cm or less) completed Jeffry Mcdaniels DPM [address], [address], [facility] 12/13/2018 09:43:35 08/25/19 17 Keratoma (1 lesion) completed Jeffyr Mcdaniels DPM [address] [address], [place], [address], [facility] 08/25/2016 10:24:54 08/25/19 17 Debridement Skin/Tissue (20sq cm or less) completed Jeffry Mcdaniels DPM [address], [address], [facility] 08/25/2016 10:24:39 04/12/20 16 Foot Surgery completed Elzbieta Garcia [facility] 10/26/2016 14:18:17 09/09/19 16 Keratoma (1 lesion) completed Jeffry Mcdaniels DPM [address], [address], [facility] 09/09/2015 16:07:04 09/09/19 16 Debridement Skin/Tissue (20sq cm or less) completed Jeffry Mcdaniels DPM [address] [place] [address], [phone], [facility] 09/09/2015 16:07:04 04/07/20 15 Foot Surgery completed Elzbieta Garcia [facility] 10/26/2016 14:18:17 Imaging Results [...] Available Not Available Not Available vitamin d 50598 unit caps 12/13 completed Not Available Not [...] Details Last Updated DateTime 08/25/2016 177.8 cm 460806.83 g 40.9 kg/m2 Elzbieta Garcia [facility] 10/26/2016 14:18:17 Date Recorded Body mass index (BMI) Body weight Body height Provider Name and Address Organization Details Last Updated DateTime 09/09/2015 40.4 kg/m2 181094.8419 g 180.34 cm Tg Pardo [facility] 09/09/2015 15:20:29 Date Recorded Body height Body mass index (BMI) Body weight Pain severity - 0-10 verbal numeric rating [Score] - Reported Provider Name and Address Organization Details Last Updated DateTime 12/13/2018 177.8 cm 40.9 kg/m2 131600.83 g 0 Daniel Dudley [facility] 12/13/2018 08:57:23 Date Recorded Systolic And Diastolic Provider Name and Address Organization Details Last Updated DateTime 03/08/2019 122/82 mm[Hg] Elba Lemus [facility] 03/08/2019 08:13:00 Date Recorded Body height Body mass index (BMI) Body weight Pain severity - 0-10 verbal numeric rating [Score] - Reported Provider Name and Address Organization Details Last Updated DateTime 03/08/2019 177.8 cm 40.9 kg/m2 658163.83 g 0 Daniel Buckner [facility] 03/08/2019 08:07:58 Social History Question Answer Notes LastModified by Pixia Details LastModified Time Tobacco Smoking Status Current Some Day Smoker Tg Pardo colleen [facility] 09/09/2015 15:18:26 Which Illicit Or Recreational Drugs Have You Used? [place] Information not available 09/09/2015 What Is Your [...] Functional Status Question Answer Note LastModified by Pixia Details LastModified Time What is your level [...] 9500 Jeffry Mcdaniels DPM [facility] [address] [address] 09/09/2015 15:02:46 09/09/2015 16:19:08 Foot callus 753028988 L84 Diabetes mellitus 340387 09 E11.49 Diabetic foot ulcer 3710 03499 L97.509 Metatarsalgia 14535251 M 77.41 [id number] Jeffry Mcdaniels DPM [facility] [address] [address] 08/25/2016 09:46:28 08/25/2016 10:30:32 Keratoma 887698786 L84 Plantarfle xion deformity of foot 798929334 M21.6X2 Diabetic foot ulcer 3710 90719 E11.40 Ulcer of foot 45303175 L 97.521 [id number] Jeffry Mcdaniels DPM [facility] [address] [address] 12/13/2018 08:49:23 12/13/2018 09:49:40 Diabetes mellitus 52789607 E11.49 Type 2 daniel betes mellitus 77650954 E11.9 Foot callus 867957059 L8 4 Ulcer of foot 59317850 L 97.521 Ingrowing nail 416927972 L60.0 Foot pain 67177910 M79.6 71 M79.672 Onychomyco sis due to dermatophyte 187101674 B35.1 [id number] Jeffry Mcdaniels DPM [facility] [address] [address] 03/08/2019 07:55:18 03/08/2019 08:35:17 Diabetes mellitus 16336075 E11.49 Type 2 daniel betes mellitus 01042608 E11.9 Foot callus 401242992 L8 4 Ingrowing nail 770331011 L60.0 Foot pain 46610435 M79.6 71 M79.672 Onychomyco sis due to dermatophyte 899734555 B35.1 Health Concerns Section Related Observation LastModified by Organization Detai ls LastModified Time None Recorded Concern Status LastModified by Organization Details LastModified Time None Recorded Advance Directives Directive None Recorded Payers Insurance Date Sequence Insurance Name Policy Number Policy Mata Covered Member ID Mata Member ID Guarantor Name 12/06/[address] [facility] [id number] Tasia Kumari [id number] Larry Payne 10/26/[address] [place] [address] [id number] Larry Payne [id number] Larry Payne 05/21/2019 1 [facility] [id number] Tasia Kumari [id number] Larry Payne
[2025-03-04 10:55] LABS: Alanine Aminotransferase 24 U/L (0-40); Albumin Level 4.3 g/dL (3.5-5.0); Alkaline Phosphatase 58 U/L (39-117); Anion Gap 11 (12-20); Aspartate Amino Transferase 31 U/L (5-37); Blood Urea Nitrogen 24 mg/dL (9-16); Calcium 8.9 mg/dL (8.4-10.2); Carbon Dioxide 24 mmol/L (22-29); Chloride 112 mmol/L (96-108); Cholesterol 180 mg/dL (<200); Estimated Glomerular Filt Rate > 60; HDL Cholesterol 37 mg/dL (>40); Potassium 4.0 mmol/L (3.3-5.1); Sodium 143 mmol/L (135-145); Total Protein 6.5 g/dL (6.5-8.0); Triglycerides 60 mg/dL (<150)
[2025-03-04 10:56] LABS: Microalbum/Creatinine Ratio Ur 4.9 ug/mg cr (<30)
== END 2025-03-04 08:22 | disposition home or self-care (01) ==
LOC: HO.10HDL 08:21
PROVIDERS: Visit Provider Internal Medicine
DX: E10.42 Type 1 diabetes mellitus with diabetic polyneuropathy (principal); E55.9 Vitamin D deficiency, unspecified; E78.5 Hyperlipidemia, unspecified; R80.9 Proteinuria, unspecified
CPT/HCPCS: 36415; 80053; 80061; 82043; 82306; 82570

== ENCOUNTER 2025-04-17 12:02 | Outpatient (AMB) | payer BC, SELFPAY ==
--- OUTSIDE RECORDS SUMMARY | 2025-04-15 16:00 | XMS_ITS | Encounter Summary ---
Author Organization [facility] Address [id number] [place] [phone] Care Team Providers Care Line Palletizer Name Role Phone Elly Anne MD Primary Care Provider [phone] Reason for Referral * Consultation (Routine) - Pending Review Specialty Diagnoses / Procedures Referred By Vicki romano Referred To Contact Occupational Therapy Diagnoses White matter lesion of central nervous system Left hemiparesis (CMS/HCC V24, CMS/HCC V28) Rohit Platt MD [address] [place] [address] Phone: tel: fax: Referral ID Status Reason Start Date Expiration Date Visits Requested Visits Authorized [id number] Pending Review Specialty Services Required 04/15/2025 04/15/2026 1 1 * Consultation (Routine) - Pending Review Specialty Diagnoses / Procedures Referred By Vicki romano Referred To Contact Physical Therapy Diagnoses White matter lesion of central nervous system Left hemiparesis (CMS/HCC V24, CMS/HCC V28) Rohit Platt MD [address] [place] [address] Phone: tel: fax: Referral ID Status Reason Start Date Expiration Date Visits Requested Visits Authorized [id number] Pending Review Specialty Services Required 04/15/2025 04/15/2026 1 1 Reason for Visit * Neurology (Routine) - Authorized Specialty Diagnoses / Procedures Referred By Vicki t Referred To Contact Neurology Diagnoses Multiple sclerosis (CMS/HCC V24, CMS/HCC V28) Procedures TX VISIT OFFICE OUTPATIENT ESTABLISHED MODERATE LEVEL Elly Anne MD [address] [place] [address] Phone: tel: [facility] [address] [address] Phone: tel: fax: Referral ID Status Reason Start Date Expiration Date V isits Requested Visits Authorized [id number] Authorized 03/17/2025 03/17/2026 12 12 Encounter Details Date Type Department Care Team (Late Contact Info) Description 04/15/2025 4:00 PM EDT Office Visit [address] [address] Rohit Platt MD [address] [place] [phone] 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); Left hemiparesis (CMS/[facility] V24, [facility] V28) Social History Tobacco Use Types Packs/Day Years Used Date Smoking Tobacco: Never Assessed Sex and Gender Information Value Date Recorded Sex Assigned at Not on file Legal Sex Male 3:43 PM EDT Gender Identity Not on file Sexual Orientation Not on file documented as of this encounter Last Filed Vital Signs Vital Sign Reading Time Taken Comments Blood Pressure 126/80 04/15/2025 3:55 PM EDT Pulse 76 04/15/2025 3:55 PM EDT Temperature - - Respiratory Rate - - Oxygen Saturation 98% 04/15/2025 3:55 PM EDT Inhaled Oxygen Concentration - - Weight 121 kg (267 lb) 04/15/2025 3:55 PM EDT Height 177.8 cm (5' 10 ) 04/15/2025 3:55 PM EDT Body Mass Index 38.31 04/15/2025 3:55 PM EDT documented in this encounter Plan of Treatment Upcoming Encounters Date Type Department Care Team (Late st Contact Info) Description 08/04/2025 4:00 PM EST Office Visit [facility] 175 [facility] [address] [place] [id number] Rohit Platt MD [address] [place] [address] Scheduled Referrals Name Type Priority Associated Diagnoses Order Schedule Ambulatory referral to Physical Therapy and Athletic Training Outpatient Referral Routine White matter lesion of central nervous system Left hemiparesis ([facility] V24, [facility] V28) 1 Occurrences starting 04/15/2025 until 04/15/2026 Ambulatory referral to Occupational Therapy Outpatient Referral Routine White matter lesion of central nervous system Left hemiparesis (CMS/[facility] V24, CMS/[facility] V28) 1 Occurrences starting 04/15/2025 until 04/15/2026 documented as of this encounter Visit Diagnoses Diagnosis White matter lesion of central nervous system- Primary Left hemiparesis (CMS/HCC V24, CMS/[facility] V28) Unspecified hemiplegia affecting unspecified side documented in this encounter Historical Medications * This list may reflect changes made after this encounter. gabapentin (NEURONTIN) 300 mg capsule 1 capsule (300 mg total) 3 (three) times a day. atorvastatin (LIPITOR) 20 mg tablet Take 1 tablet (20 mg total) by mouth 1 (one) time each day. added in this encounter Care Teams Line Palletizer Relationship Specialty Start Date End Date Elly Anne MD [address] [place] [address] , [facility] 101 [facility] D/B/A: [facility] [place], [place] PCP - General 01/18/24 documented as of this encounter
[2025-04-17 12:42] VITALS: BP 130/80; BMI 36.0
--- NOTE | 2025-04-17 12:42 | MHC.PC.OV ---
Vital Signs 04/17/25 12:42 Height 5 ft 10 in Weight 251 lb BMI 36.0 BP 130/80 Blood Pressure Location Lt brachial Position Sitting Pulse Source Pulse Oximeter Oxygen Delivery Method Room Air Intake Visit Reasons: annual exam Glass Block Bender Required: No Accompanied by: Self / Same As Patient Allergies No Known Allergies (No Known Allergies*) Allergy (Verified 04/17/25 13:00) Medication List - Last Reconciled 04/17/25 by Elly Anne MD acetone (urine) test (Ketone Urine Test strips) tid prn glucose over 250, nausea or vomiting aspirin (Adult Aspirin Regimen) 81 mg PO DAILY 90 days atorvastatin 40 mg PO DAILY blood-glucose sensor (Dexcom G7 Sensor device) As directed change every 10 days insulin lispro Inject up to 80 units of the insulin pump daily daily; Lantus Solostar U-100 Insulin (insulin glargine) 30 units (0.3 mL) subcut DAILY PRN 30 days MDD 30 units NS magnesium oxide 400 mg PO DAILY pen needle, diabetic As directed daily Tobacco use date assessed: 04/17/25 Dental Screening Dental Screen Date: 04/17/25 Did you have a dental visit in the last 12 months?: No Did you have a dental problem in the last 6 months where you did not have access to dental care?: No Was dental information given to patient?: No HPI HPI Comments History of Present Illness Details The patient is a 45-year-old male presenting for a physical examination and preventative care. The patient has a history of diabetes mellitus, with the most recent hemoglobin A1c recorded at 6.7% on February 26 of this year. He is currently managing his condition, although specific details of his management plan were not discussed. The patient also has multiple sclerosis and is under the care of a neurologist. No further details regarding the management or progression of this condition were provided. He experiences moderate major depressive disorder, with a PHQ-9 score of 18, but denies any suicidal ideation. He has declined psychiatric consultation and is not currently on medication for depression. For preventative care, the patient is willing to undergo a Cologuard test for colon cancer screening. 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 Paternal Grandmother Diabetes Paternal Uncle Diabetes Family/Other Mental health disorder Social History Household Members: Spouse Housing: House Do you presently have visiting nurse or other home services: No Alcohol intake: current Alcohol intake frequency: holidays/special occasions only Alcohol type: beer Patient Tobacco Use Status: Current everyday Tobacco user Tobacco use type: Cigarette Cigarette Packs Per Day: 0.5 Cigarettes Per Day: 10 e-Cigarette/Vaping Use: Never Used Second Hand Smoke Exposure: Yes Substance Use Type: Marijuana service: No Current occupational status: employed Current occupational exposures/hazards: No Cognitive needs: No Hearing needs: No Vision needs: No Questionnaire PHQ-9 Over the last 2 weeks, how often have you been bothered by any of the following problems? 1. Little interest or pleasure in doing things: several days 2. Feeling down, depressed, or hopeless: more than half the days 3. Trouble falling or staying asleep, or sleeping too much: nearly every day 4. Feeling tired or having little energy: nearly every day 5. Poor appetite or overeating: more than half the days 6. Feeling bad about yourself - or that you are a failure or have let yourself or your family down: several days 7. Trouble concentrating on things, such as reading the newspaper or watching television: more than half the days 8. Moving or speaking so slowly that other people could have noticed. Or the opposite - being so fidgety or restless that you have been moving around a lot more than usual: nearly every day 9. Thoughts that you would be better off or of hurting yourself in some way: not at all Total score: 17 Depression Screening Interpretation: Positive (no suicidal thoughts) Depression Screening Follow-up: Existing condition, Follow-up Visit Requested and Declines treatment Depression Screening Done: Yes 23319 - PHQ-9 Billing: Yes Source: Developed by Drs. Jace Padilla, Earlene Perez, Bogdan Luong and colleagues, with an educational lydia from [employer]. Thrive Questionnaire Date Thrive assessed: 04/17/25 I am a: Patient What is your living situation today?: I have a steady place to live Within the past 12 months, did the food you bought not last and you didn't have the money to get more?: I choose not to answer this question Within the past 12 months, did you worry whether your food would run out before you got money to buy more?: Sometimes True Do you have trouble paying for medicines?: No Do you have trouble getting transportation to medical appointments?: No Do you have trouble paying your heating and electricity bill?: No Do you have trouble taking care of your child, family member or friend?: No Do you have trouble with day-to-day activities such as bathing, preparing meals, shopping, managing finances, etc.?: No Are you currently unemployed and looking for a job?: No Are you interested in more education?: No Please select the resources that you would like help with: None Currently or been in a relationship where the following occur: No concerns reported THRIVE Score: 1 AUDIT C Alcohol Use Questionnaire (AUDIT-C) 1. How often do you have a drink containing alcohol?: Monthly or less 2. How many drinks containing alcohol do you have on a typical day when you are drinking?: 5 or 6 3. How often do you have six or more drinks on one occasion?: Less than monthly Total Score: 4 TEODORO-7 AMB Questionnaire TEODORO-7 Date TEODORO - 7 assessed: 04/17/25 Feeling nervous, anxious, or on edge: 2 = More than half the days Not being able to stop or control worryin = More than half the days Worrying too much about different things: 2 = More than half the days Trouble relaxin = More than half the days Being so restless that it is hard to sit still: 3 = Nearly every day Becoming easily annoyed or irritable: 2 = More than half the days Feeling afraid as if something awful might happen: 2 = More than half the days Total TEODORO-7 score (0-4 normal; 5-9 mild; 10-14 moderate; 15-21 severe): 15 Source: Developed by Drs. Jace Padilla, Earlene Perez, Bogdan Luong and colleagues, with an educational lydia from [employer]. TEODORO-7 Assessment Billing TEODORO-7 Assessment Tool: TEODORO-7 Assessment 61691 Review of Systems Const All systems reviewed & are unremarkable except as noted in HPI and below Card Denies chest pain at rest, Denies chest pain with activity, Denies edema, Denies irregular heart rhythm, Denies claudication, Denies dyspnea, Denies dyspnea on exertion, Denies orthopnea, Denies paroxysmal nocturnal dyspnea and Denies slow heart rate Resp Denies cough, Denies dyspnea and Denies dyspnea on exertion GI Denies abdominal pain, Denies change in bowel habits, Denies excessive flatus, Denies nausea and Denies vomiting Denies urinary hesitancy, Denies urinary incontinence and Denies urinary urgency Musc Denies atrophy, Denies deformity and Denies limited range of motion Skin/Breast Denies bleeding lesions, Denies changing lesions and Denies rash Physical exam (Primary Care) Vital Signs: Last Vital Signs BP 130/80 04/17/25 12:42 Oxygen Delivery Method Room Air 04/17/25 12:42 BMI result Body Mass Index 36.0 Tobacco/Smoking Status: Tobacco use Status Tobacco use date assessed 04/17/25 04/17/25 12:48 Patient Tobacco Use Status Current everyday Tobacco 04/17/25 12:48 Tobacco use type Cigarette 04/17/25 12:48 e-Cigarette/Vaping Use Never Used 04/17/25 12:48 PHQ-9: PHQ-9 Score PHQ-9: Total score 17 04/17/25 12:48 Depression Screening Interpretation: Positive (no suicidal thoughts) Depression Screening Follow-up: Existing condition, Follow-up Visit Requested and Declines treatment Thrive Assessment: Date of Thrive Assessment Date Thrive assessed 04/17/25 04/17/25 12:48 Currently or been in a relationship where the following occur: No concerns reported [facility] Head: Yes normal to inspection, Yes normocephalic and Yes atraumatic Ears: external ears normal Eyes General: appearance normal, both eyes and all related structures Eyelids: Yes eyelids normal Conjunctivae: conjunctivae normal Neck Neck: Yes normal visual inspection and Yes supple Resp Effort & Inspection: normal respiratory effort Auscultation: clear to auscultation bilaterally Cardio Jugular venous distension: no JVD Rate: regular rate Rhythm: regular rhythm Heart sounds: S1 normal heart sound present and S2 normal heart sound present GI Inspection: Yes normal to inspection Palpation (GI): Soft to palpation and nontender Auscultation: normal bowel sounds Skin General skin exam: no rashes or lesions noted Neuro General: no focal motor deficits Extrem General: Yes full ROM Psych Appearance: grossly normal Coding Level of Care Code Est Pt Prev Care 40-64y(91618) Diagnoses Physical exam Z00.00 Multiple sclerosis G35 Moderate recurrent major depression F33.1 Diabetes type 1, controlled E10.9 Additional Codes TEODORO-7 Assessment Billing - TEODORO-7 Assessment Tool: TEODORO-7 Assessment 07735 ([id number]) PHQ-9 - 77417 - PHQ-9 Billing: Yes ([id number]) Time Spent (min) 31 Assessment & Plan Assessment & Plan (1) Physical exam: Code(s): Z00.00 - Encounter for general adult medical examination without abnormal findings Category: Medical (2) Multiple sclerosis: Code(s): G35 - Multiple sclerosis Category: Medical (3) Moderate recurrent major depression: Code(s): F33.1 - Major depressive disorder, recurrent, moderate Category: Medical (4) Diabetes type 1, controlled: Code(s): E10.9 - Type 1 diabetes mellitus without complications Category: Medical Plan Plan Patient was informed and verbally consented to the use of an ambient scribe for clinic note documentation during this visit. 1. Encounter for general adult medical examination without abnormal findings Z00.00 The patient is willing to undergo a Cologuard test for colon cancer screening as part of preventative care. 2.Type 2 diabetes mellitus without complications E11.9 HCC 19 The patient's diabetes mellitus is currently being managed, with the most recent hemoglobin A1c recorded at 6.7% on February 26. 3.Multiple sclerosis G35 HCC 77 The patient is under the care of a neurologist for multiple sclerosis, with no additional management details provided. 4. Major depressive disorder, single episode, unspecified F32.9 The patient experiences moderate major depressive disorder with a PHQ-9 score of 18, denies suicidal ideation, and has declined psychiatric consultation and medication. Orders: Orders Lipid Panel 4 Months E78.5 - Hyperlipidemia, unspecified Microalbumin, Random (w Creat) 4 Months R80.9 - Proteinuria, unspecified Vitamin D 25-OH Total 4 Months E55.9 - Vitamin D deficiency, unspecified Vitamin B12 and Folate 4 Months E53.8 - Deficiency of other specified B group vitamins Comprehensive [place]. Panel Fast 4 Months E10.42 - Type 1 diabetes mellitus with diabetic polyneuropathy Referrals Cologuard Test E10.42 - Type 1 diabetes mellitus with diabetic polyneuropathy, Z12.11 - Encounter for screening for malignant neoplasm of colon, Z12.12 - Encounter for screening for malignant neoplasm of rectum
--- OUTSIDE RECORDS SUMMARY | 2025-04-17 16:18 | XMS_ITS | Clinical Summary ---
Author Organization [facility] Address [address] [place] [phone] Phone Care Team Providers Care Statistician Mathematical Name Role Phone Elly Anne MD Primary Care Provider [phone] Allergies No known active allergies Medications insulin [...] time per week. 4 each 5 01/15/20 26 Active atorvastatin (LIPITOR) 20 mg tablet Take 1 tablet (20 mg total) by mouth 1 (one) time each day. Active gabapentin (NEURONTIN) 300 mg capsule 1 capsule (300 mg total) 3 (three) times a day. Active Encounters Date Type Department Care Team Description 04/15/2025 4:00 PM EDT Office Visit [facility] [address] [facility] [address] [place] [address] Rohit Platt MD 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); Left hemiparesis (CMS/HCC V24, CMS/HCC V28) 01/30/2025 3:17 PM EDT - 01/30/2025 11:59 PM EDT Hospital Encounter [facility] MRI [address] [place] [phone] Multiple sclerosis (CMS/HCC V24, CMS/HCC V28) Discharge Disposition: Home or Self Care 01/30/2025 3:16 PM EDT - 01/30/2025 11:59 PM EDT Hospital Encounter [facility] MRI [address] [place] [phone] Multiple sclerosis (CMS/HCC V24, CMS/HCC V28) Discharge Disposition: Home or Self Care from Last 3 Months Social History Tobacco [...] Mass Index 38.31 04/15/2025 3:55 PM EDT Plan of Treatment Upcoming Encounters Date Type Department Care Team (Late st Contact Info) Description 08/04/2025 4:00 PM EST Office Visit [facility] [address] [facility] [address] [place] [address] Rohit Platt MD [address] [place] [phone] Health Maintenance Due Date Last Done Comments Diabetes: Annual Foot Exam 01/20/1990 Diabetes: Annual Retina Eye Exam 01/20/1990 DTaP,Tdap,and Td Vaccines (1 - Tdap) 01/20/1999 Hepatitis B Vaccines (1 of 3 - 19+ 3-dose series) 01/20/1999 Cholesterol Screening (Lipid Panel) 05/16/2024 Colorectal Cancer Screening: Colonoscopy 05/16/2024 HIV Screening 05/16/2024 Hepatitis C Screening 05/16/2024 Social Influencers of Health Screening 05/16/2024 Depression Screening 08/07/2024 Diabetes: Annual Urine Albumin-Creatinine Ratio (uACR) 01/14/2025 Diabetes: Blood Sugar Contro l Test (HGBA1C) 01/14/2025 COVID-19 Vaccine (2024-09 6 season) 2025 04/23/2021, 04/02/2021 Influenza Vaccine (#1) 2025 07/06/2016 Diabetes: Annual [...] Routine 01/30/2025 6:11 PM EDT Multiple sclerosis (CMS/HCC V24, CMS/HCC V28) MR THORACIC SPINE WO AND W CONTRAST Routine 01/30/2025 6:10 PM EDT Multiple sclerosis (CMS/HCC V24, CMS/HCC V28) CREATININE, SERUM Routine 01/13/2025 3:3 0 PM EDT Multiple sclerosis (CMS/HCC V24, CMS/HCC V28) from Last 3 Months or Most Recently Relevant to Health Maintenance Results * MR Cervical Spine wo and w Contrast (01/30/2025 6:11 PM EDT) Anatomical Region Laterality Modality C-spine, Spine Magnetic Resonan ce 02/10/2025 2:53 PM EDT Impressions 02/10/2025 3:17 PM EDT Normal appearance of the cervical cord. -------- FINAL REPORT -------- Dictated By: Cordell Thompson Dictated Date: 02/10/2025 14:53 ET Assigned Physician: Cordell Thompson Reviewed and Electronically Signed By: Cordell Thopmson Signed Date: 02/10/2025 15:17 ET Workstation ID: [id number] Transcribed By: Self Edit Transcribed Date: 02/10/2025 [...] air cells bilaterally. Ectasia of the left [id number] indents the left anterior medulla. Paraspinous soft [...] Signed Date: 02/10/2025 15:17 ET Workstation ID: [id number] Transcribed By: Self Edit Transcribed Date: 02/10/2025 14:58 ET Rohit Platt MD IM MRI PROCEDURES Final Result * MR Thoracic [...] Signed Date: 02/10/2025 15:06 ET Workstation ID: [id number] Transcribed By: Self Edit Transcribed Date: 02/10/2025 [...] Signed Date: 02/10/2025 15:06 ET Workstation ID: [id number] Transcribed By: Self Edit Transcribed Date: 02/10/2025 14:58 ET us Rohit Platt MD IMG MRI PROCEDURES Final Result * Creatinine (01/13/2025 3:30 PM EDT) Creatinine 0.84 0.70 - 1.30 mg/dL LAB CHEMISTRY METHOD 01/13/2025 7:56 PM EDT [facility] eGFR 110 >=60 mL/min/1. 73m2 LAB CHEMISTRY METHOD 01/13/2025 7:56 PM EDT [facility] Comment:Calculation based on the Chronic Kidney Disease Epidemiology Collaboration (CKD-EPI) equation refit without adjustment for race. Blood Venous blood specimen / Unknown Venipuncture / Unknown 01/13/2025 3:30 PM EDT 01/13/2025 3:30 PM EDT us Rohit Platt MD LAB BLOOD ORDERABLES Fin al Result [facility] [address] [place] [address], from Last 3 Months or Most Recently Relevant to Health Maintenance Insurance [facility] Care Teams Statistician Mathematical Relationship Specialty Start Date End Date Elly Anne MD [facility] , [address] Physician Associ D/B/A: [facility] [place] PCP - General 01/18/24
--- OUTSIDE RECORDS SUMMARY | 2025-04-17 16:18 | XMS_ITS | Patient Health Record ---
[facility] Address [address] [place] [address] Care Team Providers Care [facility]at House Supervisor Name Role Phone Bruna REINA, Elly Primary Care Provider Unavail able Danyajames Nichelle Unavailable [phone] Reason For Referral No Information Medications Medication [...] Polyneuropathy due to diabetes mellitus type I (730769532) Type 1 diabetes mellitus with diabetic polyneuropathy (E10.42) Active confirmed Problem Acquired hallux valgus (92456970) Hallux valgus (acquired), right foot (M20.11) Active confirmed Problem Metatarsalgia of right foot (934525672568117) Metatarsalgia, right foot (M77.41) Active confirmed Problem Metatarsalgia of left foot (615497102976468) Metatarsalgia, left foot (M77.42) Active confirmed Problem Non-pressure ulcer of left lower extremity, limited to breakdown of skin (L97.921) Active confirmed Plan Of Treatment Pending Test Test Name Order Date 60049-RYYIKWT NAIL, 6 OR MORE 09/23/2015 55561-SNYZLHW NAIL, 6 OR MORE 07/20/2015 45389-RGHYMTD NAIL, 6 OR MORE 01/13/2016 59003-AAGZOXM NAIL, 6 OR MORE 06/20/2016 15180-UZCVQLD NAIL, 6 OR MORE 09/05/2016 15545-YGMXUVD NAIL, 6 OR MORE 11/07/2016 76224-PEVQQSN NAIL, 6 OR MORE 01/30/2017 69243-PFODOAW NAIL, 6 OR MORE 04/12/2017 56114-Xqvu Destruction, 1-06/10/2015 61698-Jgub Destruction, 1-14 06/29/2015 17763- Debride <25 sq cm 06/29/2015 15671- Debride <25 sq cm 06/10/2015 14025- Debride <25 sq cm 09/23/2015 73151- Debride <25 sq cm 01/13/2016 03038- Debride <25 sq cm 04/12/2017 50884- Debride <25 sq cm 11/24/2016 44566-DPKOANY SKIN/TISSUE 11/17/2016 17907-ZLNFECT SKIN/TISSUE 02/03/2016 60394-BJEF SKIN LESIONS, OVER 4 06/20/20 16 01882-XJES SKIN LESIONS, OVER 4 07/20/20 15 78497-EDLR SKIN LESIONS, OVER 4 05/11/20 15 08793-CUXJ SKIN LESIONS, OVER 4 01/31/20 17 73659-ZRLB SKIN LESIONS, OVER 4 04/12/20 17 30108-XYHI SKIN LESIONS, OVER 4 11/08/19 17 41258-XDGS SKIN LESIONS, OVER 4 09/05/19 17 53234-MSXF SKIN LESIONS, 2 TO 4 09/23/19 16 30018-XDIO SKIN LESIONS, 2 TO 4 10/14/19 16 23222-FXRY SKIN LESIONS, 2 TO 4 11/30/19 16 15789-YADO SKIN LESIONS, 2 TO 4 01/13/20 16 62618-IMJK SKIN LESIONS, 2 TO 4 02/03/20 16 Insurance Providers Payer Name Payer Address Payer Phone Subscriber Number Group Number Insured Name Patient Relationship to Insured Coverage Start Date Coverage End Date [facility] [address] [place] [address] [phone] [id number] Tasia Kumari Spouse - patient is the spouse of the insured Medical (General) History Medical History History ICD Code Diabetes mellitus Cholesterol Surgical History Surgery Date(Month/Year) amputation, toe - infection 04/12/15 Hospitalization History Reason Date(Month/Year) Right toe amputation 04/2015
== END 2025-04-17 13:16 | disposition home or self-care (01) ==
LOC: HO.HMCH 12:03
PROVIDERS: PCP Internal Medicine; Visit Provider Internal Medicine
DX: Z00.00 Encounter for general adult medical examination without abnormal findings (principal); G35 Multiple sclerosis; F33.1 Major depressive disorder, recurrent, moderate; E10.9 Type 1 diabetes mellitus without complications

== ENCOUNTER → 2025-04-17 12:02 | Outpatient (BNVA) | payer BC, SELFPAY | PROVIDERS: PCP Internal Medicine; Visit Provider Internal Medicine | DX: Z00.00 Encounter for general adult medical examination without abnormal findings (principal); G35 Multiple sclerosis; F33.1 Major depressive disorder, recurrent, moderate; E10.9 Type 1 diabetes mellitus without complications; Z13.31 Encounter for screening for depression; Z13.39 Encounter for screening examination for other mental health and behavioral disorders | CPT/HCPCS: 96127 ==